=== PATIENT | female | born 1940 | race Hispanic/Latino ===

== ENCOUNTER 2021-12-30 04:03 | Observation (INO) | payer OTHER ==
[2021-12-30] VITALS (11 sets, daily range): BP systolic 118–195; BP diastolic 50–118
[~2021-12-30] VITALS: Ht 149.9 cm; Wt 61.7 kg
[2021-12-30 04:25] LABS: BASOPHILS % (AUTO) 0.1 % (0.0-5.0); EOSINOPHILS % (AUTO) 3.6 % (0.0-8.0); HEMATOCRIT 22.4 % (36-48); LYMPHOCYTES % (AUTO) 11.4 % (21.0-51.0); MEAN CORPUSCULAR HEMOGLOBIN 26.8 pg (27.0-33.0); MEAN CORPUSCULAR HGB CONC 32.1 g/dL (32.0-36.0); MEAN CORPUSCULAR VOLUME 83.3 fL (79-99); MONOCYTES % (AUTO) 4.8 % (3.0-13.0); NEUTROPHILS % (AUTO) 77.3 % (40.0-77.0); NUCLEATED RED BLOOD CELLS 0.2 % (0.0-0.19); PLATELET COUNT (AUTO) 255 K/uL (130-400); RED BLOOD CELL COUNT(AUTO) 2.69 MIL/uL (4.00-5.50); RED CELL DISTRIBUTION WIDTH 17.8 % (11.0-15.5); WHITE BLOOD COUNT (AUTO) 16.6 K/uL (4.8-10.8)
[2021-12-30] MEDS ORDERED: 0.9%NACL 1000ML 1,000 ML IV SCH ×3 (04:30→09:00)
[2021-12-30] MEDS ORDERED: ACETAMINOPHEN 500 MG TABLET PO ONE (04:30)
[2021-12-30 04:44] LABS: CARBON DIOXIDE 20 mmol/L (21-32); CHLORIDE 99 mmol/L (101-111); CREATININE 1.9 mg/dL (0.5-1.5); GLOMERULAR FILTR. RATE CALC 27 mL/min (>60); GLUCOSE,RANDOM 210 mg/dL (70-105); POTASSIUM 4.4 mmol/L (3.5-5.1); SODIUM SERUM 130 mmol/L (136-145); UREA NITROGEN, BLOOD 22 mg/dL (7-18)
[2021-12-30 04:51] LABS: ALANINE AMINOTRANSFERASE 9 U/L (12-78); ALBUMIN 1.9 g/dL (3.5-5.0); ASPARTATE AMINOTRANSFERASE 14 U/L (10-37); TOTAL PROTEIN, SERUM 11.9 g/dL (6.0-8.3)
[2021-12-30] MEDS ORDERED: MEROPENEM 1 GM VIAL IVP SCH (05:00)
[2021-12-30 05:53] LABS: APPEARANCE,URINE CLEAR (CLEAR); BILIRUBIN,URINE NEGATIVE (NEGATIVE); COLOR,URINE YELLOW (YELLOW); GLUCOSE, URINE (UA) NEGATIVE (NEGATIVE); KETONES,URINE NEGATIVE (NEGATIVE); LEUKOCYTE ESTERASE ,URINE NEGATIVE (NEGATIVE); NITRATE,URINE NEGATIVE (NEGATIVE); OCCULT BLOOD,URINE TRACE-INTACT (NEGATIVE); PROTEIN,URINE 30 mg/dL (NEGATIVE); UROBILINOGEN,URINE 0.2 mg/dL (0.2-1.0)
[2021-12-30 06:12] LABS: RBC,URINE 0-1 /HPF (0-1)
[2021-12-30 06:13] LABS: BACTERIA,URINE None Seen /HPF (None Seen); SQUAMOUS EPITHELIAL CELL,UR Few /HPF (0-2); WBC,URINE None Seen /HPF (0-1)
[2021-12-30 06:14] LABS: TRANSITIONAL EPI CELLS,URINE Few /HPF (None Seen)
[2021-12-30] MEDS ORDERED: METF-444 PO (07:27)
[2021-12-30] MEDS ORDERED: LISI40TA9 PO (07:27)
[2021-12-30] MEDS ORDERED: FERS325 PO (07:27)
[2021-12-30] MEDS ORDERED: NITR100C PO (07:27)
[2021-12-30] MEDS ORDERED: GLUCAGON 1MG KIT 1 MG ML IM PRN (08:00)
[2021-12-30] MEDS ORDERED: DEXTROSE 50%-WATER 50 ML DISP.SYRIN IV PRN (08:00)
[2021-12-30] MEDS: LISINOPRIL 40 MG TABLET PO SCH (08:07)
[2021-12-30] MEDS: FERROUS SULFATE 325 MG TABLET.DR PO SCH (08:08)
[2021-12-30] MEDS: ENOXAPARIN SODIUM 30 MG/0.3 ML SQ SCH (09:00)
[2021-12-30 09:10] LABS: MEAN CORPUSCULAR HEMOGLOBIN 26.1 pg (27.0-33.0); MEAN CORPUSCULAR HGB CONC 30.8 g/dL (32.0-36.0); MEAN CORPUSCULAR VOLUME 84.5 fL (79-99); PLATELET COUNT (AUTO) 197 K/uL (130-400); RED BLOOD CELL COUNT(AUTO) 2.38 MIL/uL (4.00-5.50); RED CELL DISTRIBUTION WIDTH 17.7 % (11.0-15.5)
[2021-12-30 09:44] LABS: HEMOGLOBIN A1C 8.8 % (4.0-6.0)
[2021-12-30] MEDS: FAMOTIDINE 20MG TAB PO SCH ×2 (09:58→20:30)
[2021-12-30 10:02] LABS: HEMATOCRIT 20.1 % (36-48)
[2021-12-30] MEDS: INSULIN HUMULIN R 100 UNIT/ML 3ML SQ SCH ×3 (11:30→21:00)
[2021-12-30] MEDS: MEROPENEM 1 GM VIAL IVP SCH ×2 (12:57→20:30)
[2021-12-30] MEDS: HYDRALAZINE 20MG/ML VIAL IV PRN ×2 (12:57→16:20)
[2021-12-30] MEDS ORDERED: ACETAMINOPHEN 325 MG TAB PO PRN (16:41)
[2021-12-30] MEDS ORDERED: ACETAMINOPHEN 325 MG TAB ONE (16:43)
[2021-12-30 16:50] LABS: HEMATOCRIT 26.8 % (36-48)
[2021-12-30] MEDS: NIFEDIPINE 10 MG CAP PO SCH ×2 (17:55→21:51)
[2021-12-31 03:07] VITALS: BP 122/58
[2021-12-31 03:50] LABS: HEMATOCRIT 24.6 % (36-48); MEAN CORPUSCULAR HEMOGLOBIN 26.1 pg (27.0-33.0); MEAN CORPUSCULAR HGB CONC 31.7 g/dL (32.0-36.0); MEAN CORPUSCULAR VOLUME 82.3 fL (79-99); NUCLEATED RED BLOOD CELLS 0.2 % (0.0-0.19); RED BLOOD CELL COUNT(AUTO) 2.99 MIL/uL (4.00-5.50); RED CELL DISTRIBUTION WIDTH 18.1 % (11.0-15.5); WHITE BLOOD COUNT (AUTO) 12.5 K/uL (4.8-10.8)
[2021-12-31 04:15] LABS: ALANINE AMINOTRANSFERASE 9 U/L (12-78); ALBUMIN 1.5 g/dL (3.5-5.0); ASPARTATE AMINOTRANSFERASE 9 U/L (10-37); CARBON DIOXIDE 21 mmol/L (21-32); CHLORIDE 105 mmol/L (101-111); CREATININE 1.9 mg/dL (0.5-1.5); GLOMERULAR FILTR. RATE CALC 27 mL/min (>60); GLUCOSE,RANDOM 165 mg/dL (70-105); POTASSIUM 3.9 mmol/L (3.5-5.1); SODIUM SERUM 134 mmol/L (136-145); UREA NITROGEN, BLOOD 24 mg/dL (7-18)
[2021-12-31] MEDS: MEROPENEM 1 GM VIAL IVP SCH ×2 (04:56→11:42)
[2021-12-31] MEDS: INSULIN HUMULIN R 100 UNIT/ML 3ML SQ SCH ×2 (06:33→11:43)
[2021-12-31 08:00] VITALS: BP 144/57
[2021-12-31] MEDS: NIFEDIPINE 10 MG CAP PO SCH ×2 (08:26→13:52)
[2021-12-31] MEDS: LISINOPRIL 40 MG TABLET PO SCH (08:26)
[2021-12-31] MEDS: FERROUS SULFATE 325 MG TABLET.DR PO SCH (08:26)
[2021-12-31] MEDS: FAMOTIDINE 20MG TAB PO SCH (08:26)
[2021-12-31] MEDS: ENOXAPARIN SODIUM 30 MG/0.3 ML SQ SCH (08:32)
[2021-12-31 12:00] VITALS: BP 144/59
[2021-12-31] MEDS ORDERED: NIFE90TA45 PO (13:29)
[2021-12-31] MEDS ORDERED: LEVO500T90 PO (13:29)
[2021-12-31 14:08] LABS: HEMATOCRIT 24.7 % (36-48)
== END 2021-12-31 16:20 | disposition home or self-care (01) ==
LOC: EDH 04:03 → INTOOBSV 04:04 → EDHIP 04:04 → 2DH 10:51
PROVIDERS: ADMIT Hospitalist; ATTEND Hospitalist
DX: A41.9 Sepsis, unspecified organism (principal); Z20.822 Contact with and (suspected) exposure to COVID-19; I16.0 Hypertensive urgency; E11.65 Type 2 diabetes mellitus with hyperglycemia; E87.1 Hypo-osmolality and hyponatremia; N17.9 Acute kidney failure, unspecified; D64.9 Anemia, unspecified; Z79.899 Other long term (current) drug therapy
CPT/HCPCS: 99285; 36430; 96374; 71250; 71045; 96361; 87635; 96375; 96376 ×2; 83036; 84484; 80053 ×2; 85025; 86850; 86900; 86901; 86923 ×2; 87040 ×2; 87804 ×2; 82948 ×5; 83605 ×2; 81001; 36415 ×2; 93005; 96372 ×2; 85027 ×2; 85014 ×2; 85018 ×2; 82270; P9016; C9803; J0360; J2185 ×5; J1815; G0378; J7030; J1650

== ENCOUNTER 2022-07-18 16:54 | Inpatient (IN) | payer MEDICAID, OTHER ==
[~2022-07-18] VITALS: Ht 152.4 cm; Wt 61.0 kg
[~2022-07-18 16:54] MED LIST: FERS325 PO; LEVO-70 PO; LISI40TA9 PO; METF-444 PO; NIFE90TA45 PO
[2022-07-18] MEDS ORDERED: ACETAMINOPHEN 500 MG TABLET ONE (17:53)
[2022-07-18] MEDS ORDERED: ACETAMINOPHEN 500 MG TABLET PO ONE (18:00)
[2022-07-18] MEDS ORDERED: 0.9%NACL 1000ML 1,000 ML IV ONE (18:00)
[2022-07-18] MEDS ORDERED: KETOROLAC 15MG/ML VIAL (15MG/ML) IV ONE (18:00)
[2022-07-18 18:02] LABS: BASOPHILS % (AUTO) 0.2 % (0.0-5.0); EOSINOPHILS % (AUTO) 1.2 % (0.0-8.0); HEMATOCRIT 22.2 % (36-48); LYMPHOCYTES % (AUTO) 8.3 % (21.0-51.0); MEAN CORPUSCULAR HEMOGLOBIN 26.5 pg (27.0-33.0); MEAN CORPUSCULAR HGB CONC 30.6 g/dL (32.0-36.0); MEAN CORPUSCULAR VOLUME 86.4 fL (79-99); MONOCYTES % (AUTO) 4.1 % (3.0-13.0); NEUTROPHILS % (AUTO) 84.7 % (40.0-77.0); NUCLEATED RED BLOOD CELLS 0.2 % (0.0-0.19); PLATELET COUNT (AUTO) 173 K/uL (130-400); RED BLOOD CELL COUNT(AUTO) 2.57 MIL/uL (4.00-5.50); RED CELL DISTRIBUTION WIDTH 18.4 % (11.0-15.5); WHITE BLOOD COUNT (AUTO) 12.3 K/uL (4.8-10.8)
[2022-07-18 18:15] LABS: APPEARANCE,URINE CLEAR (CLEAR); BILIRUBIN,URINE NEGATIVE (NEGATIVE); COLOR,URINE COLORLESS (YELLOW); GLUCOSE, URINE (UA) NEGATIVE (NEGATIVE); KETONES,URINE NEGATIVE (NEGATIVE); LEUKOCYTE ESTERASE ,URINE NEGATIVE Leu/uL (NEGATIVE); NITRATE,URINE NEGATIVE (NEGATIVE); PROTEIN,URINE 50 mg/dL (NEGATIVE); UROBILINOGEN,URINE 0.2 mg/dL (0.2-1.0)
[2022-07-18 18:18] LABS: CREATININE 1.9 mg/dL (0.5-1.5); POTASSIUM 4.2 mmol/L (3.5-5.1)
[2022-07-18 18:19] LABS: BACTERIA,URINE RARE /HPF (None Seen); MUCUS,URINE RARE LPF (None Seen); SQUAMOUS EPITHELIAL CELL,UR RARE /HPF (0-2); WBC,URINE 0-1 /HPF (0-1)
[2022-07-18 18:23] LABS: ALBUMIN 2.4 g/dL (3.5-5.0); TOTAL PROTEIN, SERUM 11.4 g/dL (6.0-8.3)
[2022-07-18] MEDS ORDERED: ZOSYN 3.375GM +NS 50ML IVPB ONE (19:00)
[2022-07-18] MEDS ORDERED: GLUCAGON 1MG KIT 1 MG ML IM PRN (20:00)
[2022-07-18] MEDS ORDERED: DEXTROSE 50%-WATER 50 ML DISP.SYRIN IV PRN (20:00)
[2022-07-18] MEDS ORDERED: ONDANSETRON 4MG INJ IVP PRN (20:00)
[2022-07-18] MEDS ORDERED: ACETAMINOPHEN 325 MG TAB PO PRN (20:00)
[2022-07-18 20:05] LABS: RETICULOCYTE % (AUTO) 2.71 % (0.42-2.23)
[2022-07-18 20:14] LABS: HEMOGLOBIN A1C 6.3 % (4.0-6.0)
[2022-07-18 20:42] LABS: % IRON SATURATION 7.8 % (22-44)
[2022-07-18] MEDS: 0.9%NACL 1000ML 1,000 ML IV SCH (20:57)
[2022-07-18] MEDS: INSULIN HUMULIN R 100 UNIT/ML 3ML SQ SCH (21:00)
[2022-07-18 21:15] VITALS: BP 150/73
[2022-07-18] MEDS ORDERED: GABA-529 PO (23:28)
[2022-07-18] MEDS ORDERED: METF-444 PO (23:28)
[2022-07-18] MEDS ORDERED: NITR100C PO (23:28)
[2022-07-19] VITALS (7 sets, daily range): BP systolic 120–169; BP diastolic 46–88
[2022-07-19] MEDS: ZOSYN 3.375GM +NS 50ML IVPB SCH ×2 (03:32→04:57)
[2022-07-19] MEDS: INSULIN HUMULIN R 100 UNIT/ML 3ML SQ SCH ×4 (05:17→19:49)
[2022-07-19 07:06] LABS: BASOPHILS % (AUTO) 0.3 % (0.0-5.0); EOSINOPHILS % (AUTO) 3.3 % (0.0-8.0); HEMATOCRIT 22.9 % (36-48); LYMPHOCYTES % (AUTO) 9.1 % (21.0-51.0); MEAN CORPUSCULAR HEMOGLOBIN 27.4 pg (27.0-33.0); MEAN CORPUSCULAR HGB CONC 31.9 g/dL (32.0-36.0); MEAN CORPUSCULAR VOLUME 86.1 fL (79-99); MONOCYTES % (AUTO) 4.9 % (3.0-13.0); NEUTROPHILS % (AUTO) 81.6 % (40.0-77.0); NUCLEATED RED BLOOD CELLS 0.2 % (0.0-0.19); PLATELET COUNT (AUTO) 166 K/uL (130-400); RED BLOOD CELL COUNT(AUTO) 2.66 MIL/uL (4.00-5.50); RED CELL DISTRIBUTION WIDTH 17.5 % (11.0-15.5); WHITE BLOOD COUNT (AUTO) 11.9 K/uL (4.8-10.8)
[2022-07-19 07:19] LABS: CREATININE 1.9 mg/dL (0.5-1.5)
[2022-07-19] MEDS: 0.9%NACL 1000ML 1,000 ML IV SCH (07:27)
[2022-07-19 07:58] LABS: % IRON SATURATION 15.8 % (22-44)
[2022-07-19] MEDS ORDERED: PHARMACY COMMUNICATION MISC SCH (08:30)
[2022-07-19] MEDS ORDERED: CYANOCOBALAMIN (VITAMIN B-12) 100 MCG TABLET PO SCH (09:00)
[2022-07-19] MEDS: PANTOPRAZOLE 40 MG/VIAL IVP SCH (10:34)
[2022-07-19] MEDS: ZOSYN 3.375GM+NS 50ML 50 ML IVPB SCH ×2 (10:34→20:45)
[2022-07-19] MEDS ORDERED: COMPOUND IV MISC 1 EACH IVSOLN MISC PRN (12:30)
[2022-07-19] MEDS: IRON SUCROSE COMPLEX 300 MG in 0.9% NACL 250ML 250 ML IV SCH (16:48)
[2022-07-20] VITALS (7 sets, daily range): BP systolic 135–191; BP diastolic 49–78
[2022-07-20 05:48] LABS: BASOPHILS % (AUTO) 0.3 % (0.0-5.0); EOSINOPHILS % (AUTO) 7.8 % (0.0-8.0); HEMATOCRIT 23.8 % (36-48); LYMPHOCYTES % (AUTO) 11.7 % (21.0-51.0); MEAN CORPUSCULAR HEMOGLOBIN 27.9 pg (27.0-33.0); MEAN CORPUSCULAR HGB CONC 31.5 g/dL (32.0-36.0); MEAN CORPUSCULAR VOLUME 88.5 fL (79-99); MONOCYTES % (AUTO) 6.4 % (3.0-13.0); NEUTROPHILS % (AUTO) 72.9 % (40.0-77.0); NUCLEATED RED BLOOD CELLS 0.2 % (0.0-0.19); PLATELET COUNT (AUTO) 156 K/uL (130-400); RED BLOOD CELL COUNT(AUTO) 2.69 MIL/uL (4.00-5.50); RED CELL DISTRIBUTION WIDTH 18.2 % (11.0-15.5); WHITE BLOOD COUNT (AUTO) 9.2 K/uL (4.8-10.8)
[2022-07-20] MEDS: INSULIN HUMULIN R 100 UNIT/ML 3ML SQ SCH ×3 (05:57→19:46)
[2022-07-20 06:03] LABS: INR 1.16 (0.85-1.15); PROTHROMBIN TIME 12.5 SEC (9.6-11.6)
[2022-07-20 06:05] LABS: PARTIAL THROMBOPLASTIN TIME 30.5 SEC (26.3-35.5)
[2022-07-20 06:33] LABS: ALBUMIN 1.8 g/dL (3.5-5.0); BILIRUBIN,DIRECT 0.1 mg/dL (0.0-0.3); CREATININE 1.8 mg/dL (0.5-1.5); CRP QUANTITATIVE 165.9 mg/L (0.00-9.0); POTASSIUM 3.9 mmol/L (3.5-5.1); TOTAL PROTEIN, SERUM 9.7 g/dL (6.0-8.3)
[2022-07-20] MEDS ORDERED: CYANOCOBALAMIN (VITAMIN B-12) 1000 MCG/ML 1ML VIAL IM SCH (09:00)
[2022-07-20] MEDS: ZOSYN 3.375GM+NS 50ML 50 ML IVPB SCH ×2 (10:38→19:48)
[2022-07-20] MEDS: PANTOPRAZOLE 40 MG/VIAL IVP SCH (10:38)
[2022-07-20] MEDS: IRON SUCROSE COMPLEX 300 MG in 0.9% NACL 250ML 250 ML IV SCH (12:44)
[2022-07-20] MEDS: NIFEDIPINE ER 30 MG TAB PO SCH (19:48)
[2022-07-21] VITALS (21 sets, daily range): BP systolic 126–197; BP diastolic 40–102
[2022-07-21 05:40] LABS: BASOPHILS % (AUTO) 0.6 % (0.0-5.0); EOSINOPHILS % (AUTO) 10.7 % (0.0-8.0); HEMATOCRIT 24.3 % (36-48); MEAN CORPUSCULAR HEMOGLOBIN 27.2 pg (27.0-33.0); MEAN CORPUSCULAR HGB CONC 31.3 g/dL (32.0-36.0); MEAN CORPUSCULAR VOLUME 87.1 fL (79-99); MONOCYTES % (AUTO) 6.6 % (3.0-13.0); NEUTROPHILS % (AUTO) 60.1 % (40.0-77.0); PLATELET COUNT (AUTO) 166 K/uL (130-400); RED BLOOD CELL COUNT(AUTO) 2.79 MIL/uL (4.00-5.50); RED CELL DISTRIBUTION WIDTH 18.1 % (11.0-15.5); WHITE BLOOD COUNT (AUTO) 6.9 K/uL (4.8-10.8)
[2022-07-21 05:52] LABS: CREATININE 1.7 mg/dL (0.5-1.5); POTASSIUM 3.9 mmol/L (3.5-5.1)
[2022-07-21] MEDS: INSULIN HUMULIN R 100 UNIT/ML 3ML SQ SCH ×4 (05:57→21:00)
[2022-07-21 07:41] LABS: ALBUMIN 1.9 g/dL (3.5-5.0); CRP QUANTITATIVE 103.7 mg/L (0.00-9.0); TOTAL PROTEIN, SERUM 10.2 g/dL (6.0-8.3)
[2022-07-21] MEDS: PANTOPRAZOLE 40 MG/VIAL IVP SCH (10:15)
[2022-07-21] MEDS: ZOSYN 3.375GM+NS 50ML 50 ML IVPB SCH ×2 (10:15→21:09)
[2022-07-21] MEDS ORDERED: 0.9%NACL 1000ML 1,000 ML IV ONE (12:09)
[2022-07-21] MEDS ORDERED: PROPOFOL 10 MG/ML 20ML VIAL IV ONE (13:03)
[2022-07-21] MEDS: IRON SUCROSE COMPLEX 300 MG in 0.9% NACL 250ML 250 ML IV SCH (17:43)
[2022-07-21] MEDS ORDERED: LACTULOSE 20 GM/30 ML UDCUP PO ONE (18:00)
[2022-07-21] MEDS ORDERED: PEG 3350/NA SULF,BICARB,CL/KCL 4000 ML SOLN PO SCH (18:00)
[2022-07-21] MEDS: NIFEDIPINE ER 30 MG TAB PO SCH (18:09)
[2022-07-21] MEDS: PANTOPRAZOLE 40 MG TAB DR PO SCH (21:09)
[2022-07-22] VITALS (14 sets, daily range): BP systolic 113–166; BP diastolic 47–70
[2022-07-22] MEDS: INSULIN HUMULIN R 100 UNIT/ML 3ML SQ SCH ×2 (06:06→11:30)
[2022-07-22] MEDS: PANTOPRAZOLE 40 MG TAB DR PO SCH (09:00)
[2022-07-22] MEDS: ZOSYN 3.375GM+NS 50ML 50 ML IVPB SCH (10:00)
[2022-07-22] MEDS ORDERED: PROPOFOL 10 MG/ML 20ML VIAL IV ONE (12:33)
[2022-07-22] MEDS ORDERED: LIDOCAINE PF 100MG/5ML (2%) SYRINGE 5ML ONE (12:33)
[2022-07-22] MEDS ORDERED: ATROPINE 1MG SYG IVP ONE (12:46)
[2022-07-22] MEDS ORDERED: GLYCOPYRROLATE 1 MG/5 ML SYRINGE ONE (12:46)
[2022-07-22] MEDS ORDERED: 0.9%NACL 1000ML 1,000 ML IV ONE (13:04)
[2022-07-22] MEDS ORDERED: PANT40TA PO (13:59)
[2022-07-22] MEDS ORDERED: CYAN1TAB44 PO (14:04)
== END 2022-07-22 17:15 | disposition home or self-care (01) | DRG 871 ==
LOC: EDH 16:54 → EDHIP 16:55 → 3AH 21:05
PROVIDERS: ADMIT Hospitalist; ATTEND Hospitalist
PROC: 0DB98ZX Excision of Duodenum, Via Natural or Artificial Opening Endoscopic, Diagnostic (ICD-10-PCS; principal; 2022-07-21)
PROC: 0DB78ZX Excision of Stomach, Pylorus, Via Natural or Artificial Opening Endoscopic, Diagnostic (ICD-10-PCS; 2022-07-21)
PROC: 0DB58ZX Excision of Esophagus, Via Natural or Artificial Opening Endoscopic, Diagnostic (ICD-10-PCS; 2022-07-21)
PROC: 0DBH8ZZ Excision of Cecum, Via Natural or Artificial Opening Endoscopic (ICD-10-PCS; 2022-07-22)
PROC: 0DBH8ZX Excision of Cecum, Via Natural or Artificial Opening Endoscopic, Diagnostic (ICD-10-PCS; 2022-07-22)
DX: A41.50 Gram-negative sepsis, unspecified (principal); G93.41 Metabolic encephalopathy; N39.0 Urinary tract infection, site not specified; E44.0 Moderate protein-calorie malnutrition; Z20.822 Contact with and (suspected) exposure to COVID-19; C18.9 Malignant neoplasm of colon, unspecified; E87.1 Hypo-osmolality and hyponatremia; N17.9 Acute kidney failure, unspecified; K29.00 Acute gastritis without bleeding; K21.00 Gastro-esophageal reflux disease with esophagitis, without bleeding; K64.8 Other hemorrhoids; D50.9 Iron deficiency anemia, unspecified; E11.22 Type 2 diabetes mellitus with diabetic chronic kidney disease; N18.9 Chronic kidney disease, unspecified; E53.8 Deficiency of other specified B group vitamins; I12.9 Hypertensive chronic kidney disease with stage 1 through stage 4 chronic kidney disease, or unspecified chronic kidney disease; R65.20 Severe sepsis without septic shock; Z82.49 Family history of ischemic heart disease and other diseases of the circulatory system; Z83.3 Family history of diabetes mellitus; Z68.26 Body mass index [BMI] 26.0-26.9, adult
CPT/HCPCS: 36415; 43239; 45380; 45385; 71045; 76770; 80048; 80053; 80076; 81001; 82040; 82270; 82330; 82607; 82728; 82746; 82948; 83036; 83540; 83550; 83605; 83735; 84145; 84155; 85025; 85610; 85651; 85730; 86140; 86334; 86340; 86677; 86850; 86900; 86901; 86923; 87040; 87088; 87635; 87804; C9113; C9803; G0378; J0461; J1756; J1885; J2001; J2543; J2704; J3420; J3490; J7030; J7050; P9016

== ENCOUNTER 2023-08-07 07:04 | Inpatient (IN) | payer MEDICAID, OTHER ==
[~2023-08-07] VITALS: Ht 149.9 cm; Wt 58.5 kg
[2023-08-07] VITALS (8 sets, daily range): BP systolic 154–163; BP diastolic 71–72; PULSE 72–93; RESP 18–20; TEMP 98.2; O2SAT 95–97
[~2023-08-07 07:04] MED LIST changes: +CYAN1TAB44 PO; +GABA-529 PO; -LEVO-70 PO; -LISI40TA9 PO; -NIFE90TA45 PO; +NIFE90TA72 PO; +PANT40TA PO
[2023-08-07 07:42] LABS: RAPID GROUP A STREP negative (NEGATIVE)
[2023-08-07 07:51] LABS: INFLUENZA TYPE A Negative For Type A (NEGATIVE); INFLUENZA TYPE B Negative For Type B (NEGATIVE)
[2023-08-07 07:56] LABS: SARS-CoV-2, RNA, NAAT POSITIVE SARS CoV-2 (NEGATIVE)
[2023-08-07 07:58] LABS: BASOPHILS # (AUTO) 0.04 K/uL (0.00-0.20); BASOPHILS % (AUTO) 0.5 % (0.0-5.0); EOSINOPHILS # (AUTO) 0.04 K/uL (0.00-0.70); EOSINOPHILS % (AUTO) 0.5 % (0.0-8.0); IMMATURE GRANULOCYTE ABSOLUTE 0.09 K/uL (0-1); LYMPHOCYTES # (AUTO) 0.9 K/uL (1.0-4.8); LYMPHOCYTES % (AUTO) 10.3 % (21.0-51.0); MEAN CORPUSCULAR HEMOGLOBIN 27.6 pg (27.0-33.0); MEAN CORPUSCULAR HGB CONC 31.2 g/dL (32.0-36.0); MEAN CORPUSCULAR VOLUME 88.4 fL (79-99); MONOCYTES # (AUTO) 0.6 K/uL (0.1-1.0); MONOCYTES % (AUTO) 6.7 % (3.0-13.0); NEUTROPHILS # (AUTO) 7.2 K/uL (1.8-7.7); PLATELET COUNT (AUTO) 162 K/uL (130-400); RED BLOOD CELL COUNT(AUTO) 2.32 MIL/uL (4.00-5.50); RED CELL DISTRIBUTION WIDTH 17.7 % (11.0-15.5); WHITE BLOOD COUNT (AUTO) 8.8 K/uL (4.8-10.8)
[2023-08-07 08:02] LABS: APPEARANCE,URINE CLEAR (CLEAR); BILIRUBIN,URINE NEGATIVE (NEGATIVE); COLOR,URINE COLORLESS (YELLOW); GLUCOSE, URINE (UA) NEGATIVE (NEGATIVE); KETONES,URINE NEGATIVE (NEGATIVE); LEUKOCYTE ESTERASE ,URINE NEGATIVE Leu/uL (NEGATIVE); NITRATE,URINE NEGATIVE (NEGATIVE); PH,URINE 5.5 (5.0-8.0); PROTEIN,URINE 50 mg/dL (NEGATIVE); UROBILINOGEN,URINE 0.2 mg/dL (0.2-1.0)
[2023-08-07 08:05] LABS: CREATININE 2.6 mg/dL (0.5-1.5); POTASSIUM 4.7 mmol/L (3.5-5.1)
[2023-08-07 08:07] LABS: INR 1.06 (0.85-1.15); PROTHROMBIN TIME 12.3 SEC (9.6-11.6)
[2023-08-07 08:08] LABS: PARTIAL THROMBOPLASTIN TIME 24.6 SEC (26.3-35.5)
[2023-08-07 08:10] LABS: ALBUMIN 1.8 g/dL (3.5-5.0); BILIRUBIN,TOTAL 0.2 mg/dL (0.2-1.0); TOTAL PROTEIN, SERUM 10.9 g/dL (6.0-8.3)
[2023-08-07 08:12] LABS: ADD UA MICROSCOPIC YES
[2023-08-07 08:14] LABS: BACTERIA,URINE RARE /HPF (None Seen); MUCUS,URINE RARE LPF (None Seen); SQUAMOUS EPITHELIAL CELL,UR RARE /HPF (0-2)
[2023-08-07 08:24] LABS: HEMATOCRIT 20.5 % (36-48)
[2023-08-07] MEDS: ALBUTEROL 0.083% 2.5 MG/3 ML INH IH ONE (08:44)
[2023-08-07] MEDS: 0.9%NACL 1000ML 1,365 ML IV ONE (09:17)
[2023-08-07] MEDS: METOCLOPRAMIDE 10 MG/2 ML VIAL IVP ONE (09:17)
[2023-08-07] MEDS: DEXAMETHASONE SOD PHOSPHATE 4 MG/ML 1ML VIAL IV ONE (09:20)
[2023-08-07] MEDS: FAMOTIDINE 20MG VIAL IV ONE (09:23)
[2023-08-07] MEDS: KETOROLAC 30MG VIAL (30MG/ML) IVP ONE (09:24)
[2023-08-07] MEDS: ENOXAPARIN SODIUM 40 MG/0.4 ML SYRINGE SQ ONE (09:25)
[2023-08-07] MEDS: CEFTRIAXONE 2GM VIAL IVPB ONE (09:26)
[2023-08-07] MEDS: AZITHROMYCIN 500MG+NS 250ML 250 ML IVPB SCH (10:07)
[2023-08-07] MEDS ORDERED: 0.9%NACL 1000ML 1,000 ML IV SCH (12:00)
[2023-08-07] MEDS ORDERED: ACETAMINOPHEN 325 MG TAB PO PRN (12:00)
[2023-08-07] MEDS ORDERED: PANTOPRAZOLE 40 MG/VIAL IVP SCH (12:00)
[2023-08-07] MEDS ORDERED: ALBUTEROL 0.083% 2.5 MG/3 ML INH IH PRN (12:00)
[2023-08-07] MEDS ORDERED: ONDANSETRON 4MG INJ IVP PRN (12:00)
[2023-08-07 12:05] LABS: RETICULOCYTE % (AUTO) 1.3 % (0.42-2.23)
[2023-08-07 12:11] LABS: HEMOGLOBIN A1C 6.2 % (4.0-6.0)
[2023-08-07 12:26] LABS: MAGNESIUM 2.1 mg/dL (1.80-2.40); PHOSPHORUS 3.4 mg/dL (2.5-4.9); THYROID STIMULATING HORMONE 8.15 uIU/mL (0.36-3.74)
[2023-08-07] MEDS: ACETAMINOPHEN 325 MG TAB PO ONE (12:38)
[2023-08-07 12:40] LABS: % IRON SATURATION 8.6 % (22-44)
[2023-08-07 13:01] LABS: ABG BASE EXCESS -7.2 mmol/L (-2.0-3.0); ABG HCO3 15.9 mmol/L (21.0-28.0); ABG OXYGEN SATURATION 94.4 % (95.0-99.0); ABG PCO2 27 mmHg (32-45); PO2, ARTERIAL BG 70.8 mmHg (83.0-108.0); VENT MODE, BG RA (ROOM AIR)
[2023-08-07 13:14] LABS: FERRITIN 146 ng/mL (15-150); LACTATE DEHYDROGENASE 135 U/L (81-234)
[2023-08-07 15:12] LABS: URIC ACID 6.9 mg/dL (2.6-7.2)
[2023-08-07 17:16] LABS: HEMATOCRIT 22.3 % (36-48)
[2023-08-07] MEDS: BUDESONIDE 0.5 MG/2 ML INH IH SCH (18:39)
[2023-08-07] MEDS: PANTOPRAZOLE 40 MG/VIAL IVP SCH (20:17)
[2023-08-07 23:14] LABS: HEMATOCRIT 20.9 % (36-48)
[2023-08-08] VITALS (15 sets, daily range): BP systolic 121–173; BP diastolic 46–74; PULSE 56–73; RESP 16–20; O2SAT 100
[2023-08-08 02:24] LABS: PROTEIN,URINE RANDOM 89.1 mg/dL (0-11.9)
[2023-08-08] MEDS: HYDRALAZINE 20MG/ML VIAL IV PRN (03:33)
[2023-08-08] MEDS: HYDRALAZINE 20MG/ML VIAL ONE (03:41)
[2023-08-08 04:21] LABS: BASOPHILS # (AUTO) 0.02 K/uL (0.00-0.20); BASOPHILS % (AUTO) 0.3 % (0.0-5.0); HEMATOCRIT 25.1 % (36-48); IMMATURE GRANULOCYTE ABSOLUTE 0.08 K/uL (0-1); LYMPHOCYTES # (AUTO) 0.8 K/uL (1.0-4.8); MEAN CORPUSCULAR HEMOGLOBIN 27.8 pg (27.0-33.0); MEAN CORPUSCULAR HGB CONC 32.7 g/dL (32.0-36.0); MEAN CORPUSCULAR VOLUME 85.1 fL (79-99); MONOCYTES # (AUTO) 0.7 K/uL (0.1-1.0); MONOCYTES % (AUTO) 9.8 % (3.0-13.0); NEUTROPHILS # (AUTO) 5.9 K/uL (1.8-7.7); NEUTROPHILS % (AUTO) 77.8 % (40.0-77.0); NUCLEATED RED BLOOD CELLS 0.3 % (0.0-0.19); PLATELET COUNT (AUTO) 149 K/uL (130-400); RED BLOOD CELL COUNT(AUTO) 2.95 MIL/uL (4.00-5.50); RED CELL DISTRIBUTION WIDTH 15.9 % (11.0-15.5); WHITE BLOOD COUNT (AUTO) 7.6 K/uL (4.8-10.8)
[2023-08-08 04:35] LABS: CREATININE 1.9 mg/dL (0.5-1.5); PHOSPHORUS 4.5 mg/dL (2.5-4.9); POTASSIUM 4.4 mmol/L (3.5-5.1)
[2023-08-08] MEDS: CYANOCOBALAMIN PO SCH (09:00)
[2023-08-08] MEDS: FOLIC ACID PO SCH (09:00)
[2023-08-08] MEDS: CEFTRIAXONE 1G VIAL IVPB SCH (10:21)
[2023-08-08] MEDS: GABAPENTIN 100 MG CAPSULE PO SCH (10:21)
[2023-08-08] MEDS: FERROUS SULFATE 325 MG TABLET.DR PO SCH (10:22)
[2023-08-08] MEDS: NIFEDIPINE ER 30 MG TAB PO SCH (10:22)
[2023-08-08] MEDS: IRON SUCROSE COMPLEX 300 MG in 0.9% NACL 250ML 250 ML IV ONE (20:34)
[2023-08-09] VITALS (10 sets, daily range): BP systolic 135–160; BP diastolic 50–72; PULSE 61–78; RESP 16–20; O2SAT 95–98
[2023-08-09 05:26] LABS: BASOPHILS # (AUTO) 0.02 K/uL (0.00-0.20); BASOPHILS % (AUTO) 0.4 % (0.0-5.0); EOSINOPHILS # (AUTO) 0.07 K/uL (0.00-0.70); EOSINOPHILS % (AUTO) 1.3 % (0.0-8.0); HEMATOCRIT 24.5 % (36-48); IMMATURE GRANULOCYTE ABSOLUTE 0.07 K/uL (0-1); LYMPHOCYTES % (AUTO) 18.7 % (21.0-51.0); MEAN CORPUSCULAR HEMOGLOBIN 28.5 pg (27.0-33.0); MEAN CORPUSCULAR HGB CONC 33.5 g/dL (32.0-36.0); MEAN CORPUSCULAR VOLUME 85.1 fL (79-99); MONOCYTES # (AUTO) 0.5 K/uL (0.1-1.0); MONOCYTES % (AUTO) 8.6 % (3.0-13.0); NEUTROPHILS # (AUTO) 3.6 K/uL (1.8-7.7); NEUTROPHILS % (AUTO) 69.7 % (40.0-77.0); PLATELET COUNT (AUTO) 171 K/uL (130-400); RED BLOOD CELL COUNT(AUTO) 2.88 MIL/uL (4.00-5.50); RED CELL DISTRIBUTION WIDTH 16.9 % (11.0-15.5); WHITE BLOOD COUNT (AUTO) 5.2 K/uL (4.8-10.8)
[2023-08-09 05:58] LABS: ALBUMIN 1.5 g/dL (3.5-5.0); BILIRUBIN,TOTAL 0.1 mg/dL (0.2-1.0); CREATININE 1.9 mg/dL (0.5-1.5); MAGNESIUM 2.3 mg/dL (1.80-2.40); PHOSPHORUS 3.4 mg/dL (2.5-4.9); POTASSIUM 3.9 mmol/L (3.5-5.1); TOTAL PROTEIN, SERUM 9.1 g/dL (6.0-8.3)
[2023-08-09] MEDS: IRON SUCROSE COMPLEX 300 MG in 0.9% NACL 250ML 250 ML IV ONE (21:28)
[2023-08-09] MEDS: SODIUM BICARBONATE 650 MG TAB PO SCH (21:28)
[2023-08-10 03:31] VITALS: BP 162/56; PULSE 69; RESP 20
[2023-08-10 03:43] LABS: BASOPHILS # (AUTO) 0.03 K/uL (0.00-0.20); BASOPHILS % (AUTO) 0.7 % (0.0-5.0); EOSINOPHILS # (AUTO) 0.14 K/uL (0.00-0.70); EOSINOPHILS % (AUTO) 3.2 % (0.0-8.0); HEMATOCRIT 26.4 % (36-48); IMMATURE GRANULOCYTE ABSOLUTE 0.11 K/uL (0-1); LYMPHOCYTES # (AUTO) 1.1 K/uL (1.0-4.8); LYMPHOCYTES % (AUTO) 25.5 % (21.0-51.0); MEAN CORPUSCULAR HGB CONC 32.6 g/dL (32.0-36.0); MONOCYTES # (AUTO) 0.4 K/uL (0.1-1.0); MONOCYTES % (AUTO) 8.3 % (3.0-13.0); NEUTROPHILS # (AUTO) 2.6 K/uL (1.8-7.7); NEUTROPHILS % (AUTO) 59.8 % (40.0-77.0); NUCLEATED RED BLOOD CELLS 0.5 % (0.0-0.19); PLATELET COUNT (AUTO) 187 K/uL (130-400); RED BLOOD CELL COUNT(AUTO) 3.07 MIL/uL (4.00-5.50); RED CELL DISTRIBUTION WIDTH 16.8 % (11.0-15.5); WHITE BLOOD COUNT (AUTO) 4.3 K/uL (4.8-10.8)
[2023-08-10 03:53] LABS: ALBUMIN 1.5 g/dL (3.5-5.0); BILIRUBIN,TOTAL 0.1 mg/dL (0.2-1.0); CREATININE 1.7 mg/dL (0.5-1.5); POTASSIUM 3.7 mmol/L (3.5-5.1); TOTAL PROTEIN, SERUM 9.2 g/dL (6.0-8.3)
[2023-08-10 07:18] VITALS: PULSE 88; RESP 18
[2023-08-10 07:20] VITALS: BP 161/69; PULSE 74; RESP 16
[2023-08-10 08:45] VITALS: O2SAT 98
[2023-08-10] MEDS: Vitamin B Complex/Vit C/Folic Acid PO SCH (10:17)
[2023-08-10] MEDS ORDERED: LOSA-418 PO (10:56)
[2023-08-10] MEDS ORDERED: SODI650T PO (10:56)
[2023-08-10 11:25] VITALS: BP 159/71; PULSE 76; RESP 16
[2023-08-10] MEDS: LOSARTAN 50 MG TABLET PO SCH (12:15)
[2023-08-11 19:09] LABS: ALBUMIN (IFE & ELECTROPHOR) 2.7 g/dL (2.9-4.4); ALBUMIN/GLOBULIN RATIO (IFE) 0.5 (0.7-1.7); ALPHA-1 (IFE & PEP) 0.4 g/dL (0.0-0.4); BETA (IFE & ELP) 0.9 g/dL (0.7-1.3); GAMMA GLOBULINS (IFE & ELP) 4.1 g/dL (0.4-1.8); GLOBULIN TOTAL (IFE) 6.4 g/dL (2.2-3.9); IGA (IFE) 12 mg/dL (64-422); IGG (IMMUNOFIXATION) 6048 mg/dL (586-1602); IGM (IMMUNOFIXATION) 12 mg/dL (26-217); M-SPIKE (IEP) 3.5 g/dL (Not Observed); TOTAL PROTEIN 9.1 g/dL (6.0-8.5)
[2023-08-12 14:13] LABS: GAMMA URINE 18.6 % (.); UPROT ELECT. M-SPIKE mg/24HR 57 mg/24 hr (Not Observed)
[2023-08-12 15:14] LABS: ALBUMIN URINE (ELP24) 36.5 % (NOT ESTAB.)
== END 2023-08-10 15:00 | disposition home or self-care (01) | DRG 871 ==
LOC: EDH 07:04 → EDHIP 07:05 → 2DH 14:57
PROVIDERS: ADMIT Internal Medicine; ATTEND Internal Medicine
PROC: 30233N1 Transfusion of Nonautologous Red Blood Cells into Peripheral Vein, Percutaneous Approach (ICD-10-PCS; principal; 2023-08-07)
DX: A41.9 Sepsis, unspecified organism (principal); I21.A1 Myocardial infarction type 2; U07.1 COVID-19; N17.9 Acute kidney failure, unspecified; E87.20 Acidosis, unspecified; E87.1 Hypo-osmolality and hyponatremia; N18.32 Chronic kidney disease, stage 3b; E66.3 Overweight; I08.1 Rheumatic disorders of both mitral and tricuspid valves; D63.1 Anemia in chronic kidney disease; E11.22 Type 2 diabetes mellitus with diabetic chronic kidney disease; E78.5 Hyperlipidemia, unspecified; E83.51 Hypocalcemia; E86.0 Dehydration; I12.9 Hypertensive chronic kidney disease with stage 1 through stage 4 chronic kidney disease, or unspecified chronic kidney disease; R62.7 Adult failure to thrive; Z87.11 Personal history of peptic ulcer disease; Z79.899 Other long term (current) drug therapy; Z68.21 Body mass index [BMI] 21.0-21.9, adult
CPT/HCPCS: 36415; 36600; 70450; 71045; 74176; 76770; 80048; 80053; 81001; 82270; 82550; 82570; 82607; 82728; 82746; 82803; 82948; 83036; 83540; 83550; 83605; 83615; 83735; 83880; 84100; 84145; 84156; 84166; 84443; 84484; 84550; 85014; 85018; 85025; 85045; 85610; 85651; 85730; 86140; 86325; 86334; 86850; 86900; 86901; 86923; 87040; 87088; 87635; 87804; 87880; 93306; 94640; 94664; C9113; G0378; J0360; J0456; J0696; J1100; J1650; J1756; J1885; J2765; J3490; J7030; J7050; P9016; G8980-CI; G8983-CI

== ENCOUNTER 2024-05-02 13:45 | Inpatient (IN) | payer SELFPAY ==
[~2024-05-02] VITALS: Ht 152.4 cm; Wt 55.7 kg
[~2024-05-02 13:45] MED LIST changes: +AZIT250T PO; +LOSA-418 PO; +MONT-46 PO; +NIFE-40 PO; +SODI650T PO
--- NOTE | 2024-05-02 14:02 | ERN ---
ED Note History of Present Illness Stated Complaint: FEVER Chief Complaint: Fever Time Seen by MD: 13:57 Dictation: PATIENT IS AN 83-YEAR-OLD FEMALE COMING IN WITH FLU-LIKE SYMPTOMS TO INCLUDE BODY ACHES FEVER CHILLS SORE THROAT WITH PAINFUL SWALLOWING. IN ADDITION SHE IS COMPLAINING OF NON TRAUMA LEFT HIP PAIN SHE HAS HAD FOR SEVERAL DAYS. DENIES ANY CHEST PAIN BACK PAIN SOB NO LOSS OF TASTE OR SMELL. TEMPERATURE 102 IN TRIAGE. Allergies: Coded Allergies: No Known Drug Allergies (Unverified Allergy, Unknown, 12/30/21) Home Meds Active Scripts Nifedipine (Nifedipine ER) 30 Mg Tab.er.24, 90 MG PO DAILY, #60 TAB Prov:KIMMY BREAUX [facility] 12/02/23 Montelukast Sodium (Singulair 10Mg) 10 Mg Tab, 10 MG PO DAILY, #30 TAB Prov:KIMMY BREAUX [facility] 12/02/23 Azithromycin (Zithromax) 250 Mg Tablet, 500 MG PO Q24H, #10 TAB Prov:KIMMY BREAUX [facility] 12/02/23 Sodium Bicarbonate (Sodium Bicarbonate) 650 Mg Tablet, 650 MG PO BID, #60 TAB 0 Refills Prov:MILES JIMÉNEZ MD 08/10/23 Losartan Potassium (Cozaar) 50 Mg Tablet, 50 MG PO BID, #60 TAB 0 Refills Prov:MILES JIMÉNEZ MD 08/10/23 Cyanocobalamin/Folic Acid (Vitamin H44-Xjfti Acid Tablet) 1 Each Tablet, 1 EACH PO DAILY for 30 Days, #30 TAB Prov:SLOANE BAXTER NP 07/22/22 Pantoprazole Sodium (Protonix) 40 Mg Tablet.dr, 40 MG PO BID for 60 Days, #60 TAB 1 Refill Prov:SLOANE BAXTER NP 07/22/22 Nifedipine (Nifedipine ER) 90 Mg Tablet.er, 90 MG PO DAILY for HIGH BLOOD PRESSURE for 30 Days, #30 TAB 1 Refill Prov:MARYANN JAMES [facility] 12/31/21 Reported Medications Metformin HCl (Metformin HCl) 500 Mg Tablet, 1 TAB PO DAILY for 30 Days, #60 TAB 0 Refills 05/02/24 Nifedipine (Nifedipine ER) 90 Mg Tablet.er, 1 TAB PO DAILY for 30 Days, #30 TAB 0 Refills 05/02/24 Sodium Bicarbonate (Sodium Bicarbonate) 650 Mg Tablet, 1 TAB PO BID for indigestion for 30 Days, #60 TAB 0 Refills 05/02/24 Pregabalin (Pregabalin) 25 Mg Capsule, 1 CAP PO TID PRN for PAIN MDD 3 Capsule(s) for 30 Days, #90 CAP 0 Refills 05/02/24 Metformin HCl (Metformin HCl) 500 Mg Tablet, 500 MG PO AM, TAB 07/18/22 Gabapentin (Gabapentin) 100 Mg Capsule, 100 MG PO DAILY, CAP 07/18/22 Ferrous Sulfate (Ferrous Sulfate) 325 Mg Ectab, 325 MG PO AM, TAB.EC 12/30/21 Past Medical History Past Medical History: Anemia, Diabetes-Type II, Hypertension Surgical History: None PSYCH History: no pertinent psych hx Social History: Negative, Lives with family History: Not Applicable RN Note Reviewed/Agreed w/PFSH: Yes Review of System Dictation CONSTITUTIONAL: NEGATIVE EXCEPT FOR HPI FEVER CHILLS HEAD/FACE: NEGATIVE EXCEPT FOR HPI EENT: NEGATIVE EXCEPT FOR HPI RHINITIS WITH SORE THROAT RESPIRATORY: NEGATIVE EXCEPT FOR HPI GASTROINTESTINAL/ABDOMINAL: NEGATIVE EXCEPT FOR HPI GENITOURINARY: NEGATIVE EXCEPT FOR HPI MUSCULOSKELETAL: NEGATIVE EXCEPT FOR HPI LEFT HIP PAIN/NON TRAUMA INTEGUMENTARY: NEGATIVE EXCEPT FOR HPI NEUROLOGICAL/PSYCH: NEGATIVE EXCEPT FOR HPI HEMATOLOGIC/LYMPHATIC: NEGATIVE EXCEPT FOR HPI ALL SYSTEMS NEGATIVE, EXCEPT NOTED ABOVE. 13 POINT REVIEW OF SYSTEMS ASSESSED AND ALL NEGATIVE EXCEPT FOR ABOVE. Initial Vital Sign VS Vital Signs Date Time Temp Pulse Resp B/P (MAP) Pulse Ox O2 Delivery O2 Flow Rate FiO2 05/02/24 13:56 102.0 83 18 198/78 97 05/02/24 14:32 Room Air* 0 21 Physical Exam Dictation VITAL SIGNS REVIEWED GENERAL APPEARANCE: ALERT, ORIENTED X 3, MILD ACUTE DISTRESS, WELL DEVELOPED, NOURISHED. HEAD AND FACE: NON-TRAUMATIC. EYES: PERRL, PINK CONJUNCTIVAS, EYELID NO TRAUMA, ANTERIOR CHAMBER WITH ARCUS SENILIS. EARS: PINNAS INTACT AND NO SIGNS OF TRAUMA OR ERYTHEMA EAR CANALS CLEAR AND NO DISCHARGE TM NO ERYTHEMA NOSE: CLEAR DISCHARGE, NO BLEEDING. OROPHARYNX: MOUTH NORMAL, TONGUE PINK, PHARYNX CLEAR MILD PHARYNGEAL ERYTHEMA, TONSILS NO EXUDATES, NO ABSCESSES NOTED, MUCOUS MEMBRANE MOIST UVULA MIDLINE, VOICE IS CLEAR NECK: SUPPLE, NON-TENDER, NO THYROMEGALY, NO MASSES, NO JVD, NO BRUITS BREAST:DEFERRED CHEST:NO TENDERNESS, NO CREPITUS, NO PARADOXICAL MOVEMENT, NO RETRACTIONS LUNGS:CLEAR, WELL-VENTILATED, SYMMETRIC, NO RALES, NO WHEEZING, NO RHONCHI, NO STRIDOR, GOOD BREATH SOUNDS BILATERALLY HEART: REGULAR RATE, REGULAR RHYTHM, NO MURMUR, NO GALLOPS VASCULAR: NO PERIPHERAL EDEMA, ABDOMEN: SOFT, POSITIVE BOWEL SOUNDS, NONDISTENDED, NO GUARDING, NONTENDER, NO REBOUND, NO MASSES NO HEPATOMEGALY, NO SPLENOMEGALY, NO UREÑA'S SIGN, NO HERNIAS. RECTAL: DEFERRED GENITAL: DEFERRED NEUROLOGICAL: NORMAL SPEECH, MOTOR FUNCTION INTACT, SENSORY FUNCTION INTACT MUSCULOSKELETAL: NECK NONTENDER, FULL RANGE OF MOTION, BACK NONTENDER, FULL RANGE OF MOTION, EXTREMITIES: LEFT ANTEROLATERAL HIP TENDERNESS WITH PALPATION NO SHORTENING OR ROTATION OF LEG. PATIENT USES CANE FOR ASSISTED WALKING. SKIN: COLOR PINK, DRY, NO TURGOR, NO RASH, NO LACERATIONS, NO ABRASIONS, NO CONTUSIONS. LYMPHATIC: DEFERRED Results (Laboratory/Radiology) Laboratory/Radiology Laboratory Tests Test 05/02/24 14:21 White Blood Count 10.0 K/uL (4.8-10.8) Red Blood Count 2.10 MIL/uL (4.00-5.50) L Hemoglobin 6.2 g/dL (12.0-16.0) *L Hematocrit 20.2 % (36-48) *L Mean Corpuscular Volume 96.2 fL (79-99) Mean Corpuscular Hemoglobin 29.5 pg (27.0-33.0) Mean Corpuscular Hemoglobin Concent 30.7 g/dL (32.0-36.0) L Red Cell Distribution Width 17.0 % (11.0-15.5) H Platelet Count 165 K/uL (130-400) Mean Platelet Volume 9.5 fL (7.5-10.5) Immature Granulocyte % (Auto) 2.5 % (0-1) H Neutrophils (%) (Auto) 76.4 % (40.0-77.0) Lymphocytes (%) (Auto) 11.3 % (21.0-51.0) L Monocytes (%) (Auto) 8.0 % (3.0-13.0) Eosinophils (%) (Auto) 1.3 % (0.0-8.0) Basophils (%) (Auto) 0.5 % (0.0-5.0) Neutrophils # (Auto) 7.7 K/uL (1.8-7.7) Lymphocytes # (Auto) 1.1 K/uL (1.0-4.8) Monocytes # (Auto) 0.8 K/uL (0.1-1.0) Eosinophils # (Auto) 0.13 K/uL (0.00-0.70) Basophils # (Auto) 0.05 K/uL (0.00-0.20) Absolute Immature Granulocyte (auto 0.25 K/uL (0-1) Nucleated Red Blood Cells 1.4 % (0.0-0.19) H Red Blood Cell Morphology See comments Sodium Level 135 mmol/L (136-145) L Potassium Level 4.5 mmol/L (3.5-5.1) Chloride Level 104 mmol/L (101-111) Carbon Dioxide Level 21 mmol/L (21-32) Blood Urea Nitrogen 33 mg/dL (7-18) H Creatinine 2.3 mg/dL (0.5-1.0) H Glomerular Filtration Rate Calc 20 mL/min (>90) Random Glucose 181 mg/dL (70-105) H Lactic Acid Level 2.2 mmol/L (0.8-2.5) Total Calcium 8.7 mg/dL (8.5-10.1) Influenza Type A Antigen Negative For Type A Influenza Type B Antigen Negative For Type B SARS-CoV-2 Antigen (Rapid) PRESUMPTIVE NEGATIVE Group A Streptococcus Rapid negative (NEGATIVE) 1507 LEFT HIP X-RAY NEGATIVE EXCEPT DEGENERATIVE CHANGE Labs Reviewed?: Yes ED Course ED Course Orders Procedure Category Date Status Time Hip Unilat 2-3vw Left RAD 05/02/24 Taken 13:58 Covid19 (Sars Antigen LAB 05/02/24 Complete Rapid) 13:58 Rapid (Group A Strep) LAB 05/02/24 Complete 13:58 Acetaminophen 500mg PHA 05/02/24 Complete Tab (Tylenol 500mg T 14:00 Cbc With Differential LAB 05/02/24 Complete 13:58 Blood Cult ALETA 05/02/24 In Process 13:58 Urinalysis Profile LAB 05/02/24 Logged 13:58 Lactic Acid LAB 05/02/24 Complete 13:58 Basic Metabolic Panel LAB 05/02/24 Complete 13:58 Type And Screen BBK 05/02/24 Complete 14:45 Rbc-No Active Bleeding BBK 05/02/24 Complete 14:45 *Nursing CPOE 05/02/24 Transmitted Communication: 14:45 0.9%Nacl 1000ml (Ns PHA 05/02/24 Complete 1000ml) 15:00 Ceftriaxone 1g Vial PHA 05/02/24 Complete (Rocephine 1g Inj) 15:00 Chest 1vw RAD 05/02/24 Resulted 15:09 Influenza Type A & B, LAB 05/02/24 Complete Rapid 14:21 Edm Admit Bridge Order ADM 05/02/24 Transmitted 17:26 Lactic Acid (Removed) LAB 05/02/24 Logged 17:37 Vitamin B12 Serum LAB 05/02/24 In Process 17:45 Folic Acid Serum LAB 05/02/24 In Process 17:45 Thyroid Stimulating LAB 05/02/24 In Process Hormone 17:45 Hemoglobin A1c LAB 05/02/24 In Process 17:45 Telemetry Monitoring CPOE 05/02/24 Transmitted 17:45 0.9%Nacl 1000ml (Ns PHA 05/02/24 In Process 1000ml) 18:00 Zosyn 3.375gm+Ns 50ml PHA 05/02/24 Complete (Zosyn 3.375gm+Ns 21:00 Fall Precautions CPOE 05/02/24 Transmitted 17:45 Telemetry Monitoring CPOE 05/02/24 Transmitted 17:45 Scd Both Legs While CPOE 05/02/24 Transmitted In Bed 17:45 *Nursing CPOE 05/02/24 Transmitted Communication: 17:45 Admit Orders ADM 05/02/24 Transmitted 17:45 Elevate Hob At 30 CPOE 05/02/24 Transmitted Degrees 17:45 Urinalysis Profile LAB 05/02/24 Logged Catherized 17:48 Ct Abdomen/Pelvis W/O CT 05/02/24 Logged Contrast 17:48 Acetaminophen 500mg PHA 05/02/24 In Process Tab (Tylenol 500mg T 18:00 Ondansetron 4mg Inj PHA 05/02/24 In Process (Zofran 4mg Inj) 18:00 Hydralazine 20mg Inj PHA 05/02/24 In Process (Apresoline 20mg In 18:00 Vital Signs(Adult CPOE 05/02/24 Transmitted Hospitalist) 17:51 Daily Weights CPOE 05/02/24 Transmitted 17:51 I&O Q Shift CPOE 05/02/24 Transmitted 17:51 Nurse To Enter Home CPOE 05/02/24 Transmitted Medication 17:51 Condition: CPOE 05/02/24 Transmitted 17:51 Activity: Br W/Brp CPOE 05/02/24 Transmitted With Assist 17:51 Apply Scds CPOE 05/02/24 Transmitted 17:51 Active Bleeding(Vte) CPOE 05/02/24 Transmitted 17:51 Ferritin LAB 05/02/24 In Process 17:51 Iron Panel With %Sat LAB 05/02/24 Logged 17:51 Cate & Protein LAB 05/02/24 Logged Electropho Serum 17:51 Erythrocyte LAB 05/02/24 Logged Sedimentation Rate 17:54 Crp Quantitative LAB 05/02/24 In Process 17:54 Procalcitonin LAB 05/02/24 In Process 17:54 Thyroid Stimulating LAB 05/02/24 In Process Hormone 17:54 Free T3 LAB 05/02/24 In Process 17:54 T4 Free LAB 05/02/24 In Process 17:54 Hematology Consult CONPHYSVC 05/02/24 Transmitted 17:54 Nephrology Consult CONPHYSVC 05/02/24 Transmitted 17:54 Hemoglobin And LAB 05/02/24 Logged Hematocrit 21:00 Cbc With Differential LAB 05/03/24 Verified 04:00 Comprehensive LAB 05/03/24 Verified Metabolic Panel 04:00 Magnesium LAB 05/03/24 Verified 04:00 Pantoprazole 40mg Inj PHA 05/02/24 In Process (Protonix 40mg Inj 18:00 [id number]-[id number] LAB 05/02/24 Logged 17:58 Lactate Dehydrogenase LAB 05/02/24 In Process 17:58 Urine Protein LAB 05/02/24 Logged Elecphor. Random 17:58 [employer] Associate SS 05/02/24 Transmitted Evaluaton 17:58 Case Management CM 05/02/24 Transmitted Evaluation 17:58 Zosyn 3.375gm+Ns 50ml PHA 05/02/24 In Process (Zosyn 3.375gm+Ns 18:30 Zosyn 3.375gm+Ns 50ml PHA 05/03/24 In Process (Zosyn 3.375gm+Ns 09:00 Vital Signs Date Time Temp Pulse Resp B/P (MAP) Pulse Ox O2 Delivery O2 Flow Rate FiO2 05/02/24 17:10 99.1 64 16 144/34 97 Room Air* 0 21 05/02/24 15:52 71 24 163/55 97 Room Air* 0 21 05/02/24 14:32 102.0 80 24 159/57 97 Room Air* 0 21 05/02/24 14:11 102.0 05/02/24 13:56 102.0 83 18 198/78 97 FOURTEEN 50, PATIENT HAS HEMOGLOBIN HEMATOCRIT OF 6.2 AND 20, LACTIC ACID 2.2. PENDING RESULTS OF REMAINDER OF CHEMISTRY. PATIENT DOES HAVE A HISTORY OF SEPSIS AND CHRONIC KIDNEY DISEASE WITH A ANEMIA AND PRIOR BLOOD TRANSFUSIONS. WE WILL ORDER TYPE AND SCREEN TO DELIVER 1 UNIT OF PACKED RED BLOOD CELLS NOW ADDITIONALLY, WE WILL GIVE1 L OF NORMAL SALINE WITH1 G OF ROCEPHIN FOR SEPSIS DUE TO HISTORY OF CHRONIC KIDNEY DISEASE. PATIENT WILL BE MONITORED FOR HEMODYNAMIC STABILITY AND WILL BE ADMITTED TO THE HOSPITAL. SPOKE TO DAUGHTER AT LENGTH AT BEDSIDE AND SHE SAID THAT PATIENT HAS SEEN DR. DELGADO NEPHROLOGY IN THE PAST HOWEVER HAS NOT SEEN HIM SINCE NOVEMBER OF 2023. 1725/DR GENAO HERE AND REVIEWED LABS X-RAY AND WORKUP TO INCLUDE INTERVENTION FOR ANEMIA WITH TRANSFUSION OF 1 UNIT PACKED RED BLOOD CELLS HE AGREED TO ADMIT. Medical Decision Making MDM MDM: DIFFERENTIAL DIAGNOSIS: INFLUENZA/COVID/STREP/URINARY TRACT INFECTION/LEFT HIP PAIN SEPSIS RATIONALE: TESTS CONSIDERED AND ORDERED SECONDARY TO SHARED DECISION MAKING INCLUDE: LABS, AND RADIOLOGY PREVIOUS OUTSIDE RECORDS REVIEWED: OLD ER VISITS. REVIEWED RISK OF COMPLICATION AND/OR MORBIDITY OR MORTALITY OF PATIENT MANAGEMENT: PATIENT WILL BE ADMITTED FOR ANEMIA OF CHRONIC RENAL FAILURE/SEPSIS MEDICATIONS-PER MEDICATION RECONCILIATION NEED FOR HOSPITALIZATION: PATIENT DOES MEET CRITERIA FOR HOSPITALIZATION.PATIENT WILL BE ADMITTED FOR ANEMIA OF CHRONIC RENAL FAILURE/SEPSIS POSSIBLE NEPHROLOGY CONSULTATION NEED FOR EMERGENCY MAJOR/MINOR SURGERY: NO THERE ARE NO SOCIAL CONCERNS WITH THIS PATIENT. PRESCRIPTION DRUG MANAGEMENT PRESCRIPTIONS WILL INCLUDE SYMPTOMATIC CARE PATIENT'S PRIOR EXTERNAL MEDICAL RECORDS FROM OTHER ER VISITS WERE REVIEWED BY ME INDICATED. PRIOR TESTING AND RESULTS FROM PREVIOUS VISITS WERE REVIEWED. PRIOR TESTS WERE TAKEN INTO ACCOUNT WITH MEDICAL DECISION MAKING AND RESOURCE UTILIZATION, INDEPENDENT HISTORIAN/HISTORIANS WERE USED TO OBTAIN COMPLETE MEDICAL HISTORY. I INDEPENDENTLY INTERPRETED THE TEST THAT WERE PERFORMED, RESULTS WERE REVIEWED BY ME AND CONSIDERED FINDINGS ON RADIOLOGY IF ORDERED. MEDICAL MANAGEMENT AND EXAMINATION INTERPRETATION DISCUSSIONS WERE HAD BY ME WITH OTHER QUALIFIED HEALTHCARE PROFESSIONALS INDICATED FOR THE PATIENT'S CARE. DX & DISP Disposition: Inpatient Decision to Admit Time: 15:57 Departure Impression: Primary Impression: Anemia of chronic renal failure, stage 4 (severe) Additional Impressions: Hyponatremia, Uncontrolled diabetes mellitus, Fever, Elevated lactic acid level Condition: Stable Referrals: SELF,REFERRAL (PCP) I have reviewed the case, and I agree with, Diagnosis and Plan ATTESTATION BY PHYSICIAN I PERFORMED THE SUBSTANTIVE PORTION OF THE VISIT. I HAVE REVIEWED AND PERSONALLY MADE AND APPROVED THE MANAGEMENT PLAN THAT IS DOCUMENTED IN THE NOTE BY MYSELF FOR THE A PP. I ACKNOWLEDGED FOR RESPONSIBILITY FOR THE PATIENT'S MANAGEMENT PLAN. STELLA FRANKEL NP May 02, 2024 14:02 CECY DAVIDSON MD May 02, 2024 18:49
[2024-05-02] MEDS: acetaMINOPHEN 500 MG TABLET PO ONE (14:11)
[2024-05-02 14:36] LABS: BASOPHILS # (AUTO) 0.05 K/uL (0.00-0.20); BASOPHILS % (AUTO) 0.5 % (0.0-5.0); EOSINOPHILS # (AUTO) 0.13 K/uL (0.00-0.70); EOSINOPHILS % (AUTO) 1.3 % (0.0-8.0); IMMATURE GRANULOCYTE ABSOLUTE 0.25 K/uL (0-1); LYMPHOCYTES # (AUTO) 1.1 K/uL (1.0-4.8); LYMPHOCYTES % (AUTO) 11.3 % (21.0-51.0); MEAN CORPUSCULAR HEMOGLOBIN 29.5 pg (27.0-33.0); MEAN CORPUSCULAR HGB CONC 30.7 g/dL (32.0-36.0); MEAN CORPUSCULAR VOLUME 96.2 fL (79-99); MONOCYTES # (AUTO) 0.8 K/uL (0.1-1.0); NEUTROPHILS # (AUTO) 7.7 K/uL (1.8-7.7); NEUTROPHILS % (AUTO) 76.4 % (40.0-77.0); NUCLEATED RED BLOOD CELLS 1.4 % (0.0-0.19); PLATELET COUNT (AUTO) 165 K/uL (130-400)
[2024-05-02 14:43] LABS: HEMATOCRIT 20.2 % (36-48)
[2024-05-02 14:45] LABS: RAPID GROUP A STREP negative (NEGATIVE)
[2024-05-02 14:50] LABS: CREATININE 2.3 mg/dL (0.5-1.0); POTASSIUM 4.5 mmol/L (3.5-5.1)
[2024-05-02 14:58] LABS: COVID19 (SARS ANTIGEN RAPID) PRESUMPTIVE NEGATIVE (NEGATIVE)
[2024-05-02 15:11] LABS: INFLUENZA TYPE A Negative For Type A (NEGATIVE); INFLUENZA TYPE B Negative For Type B (NEGATIVE)
[2024-05-02] MEDS: 0.9%NACL 1000ML 1,000 ML IV ONE (15:18)
[2024-05-02] MEDS: cefTRIAXone 1G VIAL IVPB ONE (15:18)
[2024-05-02 16:09] VITALS: TEMP 98.3
--- NOTE | 2024-05-02 16:28 | HMCIMG ---
CHEST 1VW CLINICAL HISTORY: SOB/FEVER COMPARISON: 11/28/2023 TECHNIQUE: Single view of the chest was obtained. FINDINGS: Lungs are clear. The cardiac size mildly enlarged. The bony structures are within normal limits. IMPRESSION: Cardiomegaly.
--- NOTE | 2024-05-02 17:10 | NUR ---
BLOOD INITIATED BY PAULINE BASS
[2024-05-02] MEDS ORDERED: NIFE90TA72 PO (17:52)
[2024-05-02] MEDS ORDERED: SODI650T PO (17:52)
[2024-05-02] MEDS ORDERED: METF-444 PO (17:52)
[2024-05-02] MEDS ORDERED: PREG25CA19 PO (17:52)
[2024-05-02] MEDS ORDERED: hydrALAZine 20MG/ML VIAL IV PRN (18:00)
[2024-05-02] MEDS ORDERED: ondanSETRON 4MG INJ IVP PRN (18:00)
[2024-05-02] MEDS ORDERED: acetaMINOPHEN 500 MG TABLET PO PRN (18:00)
--- NOTE | 2024-05-02 18:07 | NUR ---
NEPHROLOGY CONSULT, SPOKE TO DR CARDENAS TELEPHONE ORDERS RECIEVED AND VERBALLY READ BACK.
[2024-05-02] MEDS: PANTOPrazole 40 MG/VIAL IVP SCH (18:33)
[2024-05-02] MEDS: 0.9%NACL 1000ML 1,000 ML IV SCH (18:34)
--- NOTE | 2024-05-02 18:47 | NUR ---
PER NURSE, WILL NEED TO COME WITH PATIENT DUE TO PATIENT RECEIVING BLOOD TRANSFUSION. AT THIS TIME, NURSE IS BUSY UNABLE TO COME WITH PATIENT TO CT DEPT.
[2024-05-02 19:20] LABS: HEMOGLOBIN A1C 6.4 % (4.0-6.0)
[2024-05-02 19:30] LABS: THYROID STIMULATING HORMONE 10.4 uIU/mL (0.36-3.74)
[2024-05-02 19:42] LABS: APPEARANCE,URINE CLEAR (CLEAR); BILIRUBIN,URINE NEGATIVE (NEGATIVE); COLOR,URINE COLORLESS (YELLOW); GLUCOSE, URINE (UA) NEGATIVE (NEGATIVE); KETONES,URINE NEGATIVE (NEGATIVE); LEUKOCYTE ESTERASE ,URINE NEGATIVE Leu/uL (NEGATIVE); NITRATE,URINE 1+ (NEGATIVE); OCCULT BLOOD,URINE SMALL (NEGATIVE); PROTEIN,URINE 20 mg/dL (NEGATIVE); UROBILINOGEN,URINE 0.2 mg/dL (0.2-1.0)
[2024-05-02 19:43] LABS: ADD UA MICROSCOPIC YES
[2024-05-02 19:57] LABS: BACTERIA,URINE MOD /HPF (None Seen); MUCUS,URINE RARE LPF (None Seen); RBC,URINE 0-1 /HPF (0-1); SQUAMOUS EPITHELIAL CELL,UR RARE /HPF (0-2)
[2024-05-02] MEDS: nifeDIPine ER 30 MG TAB PO SCH (20:49)
[2024-05-02] MEDS: ZOSYN 3.375GM +NS 50ML IVPB SCH (20:49)
[2024-05-02] MEDS: SODIUM BICARBONATE 650 MG TAB PO SCH (20:49)
--- NOTE | 2024-05-02 20:55 | HMCIMG ---
CT ABDOMEN/PELVIS W/O CONTRAST CLINICAL HISTORY: sepsis, suprapubic abdominal pain, hx of RLL mass COMPARISON: 11/27/2023 TECHNIQUE: Sequential axial images of abdomen and pelvis without contrast and with sagittal and coronal reconstructions. CT was performed with one or more of the following dose reduction techniques: automated exposure control, adjustment of the mA and/or kV according to patient size, or use of iterative reconstruction technique FINDINGS: Lung bases are clear. There is cardiomegaly with advanced mitral valve calcification. The liver and spleen are unremarkable. The gallbladder pancreas and right adrenal gland are unremarkable. Note is made of a 4.2 cm left adrenal mass. The kidneys and bladder are unremarkable. The uterus is within normal limits. There is moderate amount of fecal material in the colon with no identified bowel obstruction. There is no bulky abdominal or retroperitoneal lymphadenopathy. There is no free or free fluid. Note is made of mild calcified atherosclerotic vascular disease of the aorta without aneurysmal dilatation. There is accentuation of the normal lumbar lordosis. IMPRESSION: Constipation. Left adrenal mass that was demonstrated on the prior examination.
[2024-05-02] MEDS ORDERED: ZOSYN 3.375GM +NS 50ML IVPB SCH (21:00)
--- NOTE | 2024-05-02 21:07 | NUR ---
NURSE BUSY FOR REPORT AT THIS TIME.
--- NOTE | 2024-05-02 21:23 | HP ---
[facility] HISTORY AND PHYSICAL Date of Service: May 02, 2024 Time of Service: 20:53 HISTORY OF PRESENT ILLNESS: Date of service: 05/02/2024 83-year-old female with history of hypertension, hyperlipidemia, stage 3 chronic kidney disease, type 2 diabetes mellitus, history of recurrent anemia requiring blood transfusions, with concerns for plasma cell dyscrasia/multiple myeloma who presented to the ER for further evaluation of generalized fatigue, malaise, fevers, chills and poor oral intake. Symptoms started last night and patient reports having asthenia, malaise and suprapubic discomfort. Denies any significant cough otherwise. Patient denies any syncope. Daughter has noticed that patient has been more fatigued and tired as well. Oral intake has been poor. Patient was hospitalized on 11/2023 with acute on chronic anemia requiring blood transfusion, and was undergoing further workup for multiple myeloma/plasma cell dyscrasia. Patient was followed by Dr. López on last hospitalization. 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 Daughter states that patient has been unable to follow up with Nephrology or oncology as outpatient since last discharge. On presentation to the hospital, patient was noted to be febrile with T-max of 102.0 F, heart rate of 80, blood pressure of 159/57 saturating 97% on room air. Chest x-ray showed cardiomegaly with no significant infiltrates. Labs [place] [address], hemoglobin of 6.2, hematocrit of 20.2, platelet count of 818819. CMP remarkable for sodium of 135, potassium 4.5, CO2 of 21, BUN of 33, creatinine 2.3, TSH of 10.4. Patient will be admitted under hospitalist service further management of severe anemia, sepsis with concerns for UTI. Patient will receive broad-spectrum antibiotics and we will see how patient progresses in the next 2-3 days. REVIEW OF SYSTEMS CONSTITUTIONAL: Fatigue, malaise, asthenia, fevers and chills NEUROLOGICAL: Denies headache, amaurosis fugax, motor weakness, sensory deficit, vertigo/spinning sensation, gait abnormalities, or tremors. ENT: No hearing loss, otalgia, otorrhea, rhinitis, rhinorrhea, hoarseness, or sore throat. CARDIOVASCULAR: Denies any exertional angina, dyspnea on exertion, orthopnea, paroxysmal nocturnal dyspnea, palpitations, life-threatening arrhythmias, claudication. PULMONARY: Denies any shortness of breath, cough, phlegm/sputum, hemoptysis, pleuritic chest pain. SLEEP: Denies morning headaches, daytime somnolence or napping. Denies difficulty falling asleep, staying asleep, waking from sleep. Denies knowledge of snoring. GASTROINTESTINAL: Nausea, poor oral intake, suprapubic discomfort GENITOURINARY: Denies frequency, urgency, nocturia, hematuria or incontinence (Storage/Irritative symptoms.) Low urinary stream, straining to void, urinary intermittency or hesitancy, splitting of the voiding stream, terminal dribbling. ENDOCRINOLOGIC: Denies polyuria, polydipsia, polyphagia or heat/cold intolerances. HEMATOLOGIC: Denies thrombophilia/previous clots, or coagulopathy/bleeding disorders. ONCOLOGIC: Denies personal history of malignancy. DERMATOLOGIC: Denies rashes or pruritus. PSYCHIATRIC: Denies any suicidal or homicidal ideation. Denies hallucinations. PAST MEDICAL HISTORY: Anemia, hypertension, hyperlipidemia, type 2 diabetes mellitus, chronic kidney disease stage 3, patient on last admission on 12/07 was being worked up for multiple myeloma/plasma cell dyscrasia PAST SURGICAL HISTORY: History of cataract surgery PAST SOCIAL HISTORY: Lives with daughter at home, independent with ADLs FAMILY HISTORY: Denies family history of blood disorders Allergies: Patient denies known drug allergies. Home medications: Metformin 500 mg daily, nifedipine 90 mg daily, Lyrica 25 mg t.i.d. p.r.n., sodium bicarbonate 650 mg b.i.d. Coded Allergies: No Known Drug Allergies (Unverified Allergy, Unknown, 12/30/21) PHYSICAL EXAM GENERAL APPEARANCE: The patient is awake, alert, appears debilitated and weak NEUROLOGICAL: Cranial nerves II-XII grossly intact. Motor is 5/5 in bilateral upper and lower extremities proximal to distal. No sensory deficits. HEENT: Face is symmetric. Pupils are equal and reactive. Extraocular movements are intact. NECK: Supple. No JVD. No thyromegaly. No submental, submandibular, pre- /postauricular, occipital or supraclavicular lymphadenopathy. CHEST: Normal chest expansion. No Telemetry. LUNGS: Absence of any rales, rhonchi or any wheezing. CARDIOVASCULAR: Regular. S1 and S2 normal. 6 murmur noted of the precordium ABDOMEN: Mild tenderness to palpation of the suprapubic region, no rebound or guarding noted : Deferred. No Swift. EXTREMITIES: Non-edematous and not cyanotic. No clubbing. Good capillary refill. SKIN: No skin breakdown. Vital Sign (Last 24 Hours) 05/02/24 20:16 Temp 98.6 Pulse 58 Resp 18 B/P (MAP) 168/53 Pulse Ox 98 O2 Delivery Room Air* O2 Flow Rate 0 FiO2 21 LABS: Laboratory: Test 05/02/24 19:09 05/02/24 14:21 Range/Units Urine Color COLORLESS YELLOW Urine Appearance CLEAR CLEAR Urine pH 5.0 5.0-8.0 Urine Specific [place] 1.006 1.001-1.031 Urine Protein 20 H NEGATIVE mg/dL Urine Glucose (UA) NEGATIVE NEGATIVE mg/dL Urine Ketones NEGATIVE NEGATIVE mg/dL Urine Occult Blood SMALL H NEGATIVE Urine Nitrate 1+ H NEGATIVE Urine Bilirubin NEGATIVE NEGATIVE mg/dL Urine Urobilinogen 0.2 0.2-1.0 mg/dL Urine Leukocyte Esterase NEGATIVE NEGATIVE Sergey/uL Urine RBC 0-1 0-1 /HPF Urine WBC 2-5 H 0-1 /HPF Urine Squamous Epithelial Cells RARE 0-2 /HPF Urine Bacteria MOD None Seen /HPF White Blood Count 10.0 4.8-10.8 K/uL Red Blood Count 2.10 L 4.00-5.50 MIL/uL Hemoglobin 6.2 *L 12.0-16.0 g/dL Hematocrit 20.2 *L 36-48 % Mean Corpuscular Volume 96.2 79-99 fL Mean Corpuscular Hemoglobin 29.5 27.0-33.0 pg Mean Corpuscular Hemoglobin Concent 30.7 L 32.0-36.0 g/dL Red Cell Distribution Width 17.0 H 11.0-15.5 % Platelet Count 165 130-400 K/uL Mean Platelet Volume 9.5 7.5-10.5 fL Immature Granulocyte % (Auto) 2.5 H 0-1 % Neutrophils (%) (Auto) 76.4 40.0-77.0 % Lymphocytes (%) (Auto) 11.3 L 21.0-51.0 % Monocytes (%) (Auto) 8.0 3.0-13.0 % Eosinophils (%) (Auto) 1.3 0.0-8.0 % Basophils (%) (Auto) 0.5 0.0-5.0 % Neutrophils # (Auto) 7.7 1.8-7.7 K/uL Lymphocytes # (Auto) 1.1 1.0-4.8 K/uL Monocytes # (Auto) 0.8 0.1-1.0 K/uL Eosinophils # (Auto) 0.13 0.00-0.70 K/uL Basophils # (Auto) 0.05 0.00-0.20 K/uL Absolute Immature Granulocyte (auto 0.25 0-1 K/uL Nucleated Red Blood Cells 1.4 H 0.0-0.19 % Red Blood Cell Morphology See comments Sodium Level 135 L 136-145 mmol/L Potassium Level 4.5 3.5-5.1 mmol/L Chloride Level 104 101-111 mmol/L Carbon Dioxide Level 21 21-32 mmol/L Blood Urea Nitrogen 33 H 7-18 mg/dL Creatinine 2.3 H 0.5-1.0 mg/dL Glomerular Filtration Rate Calc 20 >90 mL/min Random Glucose 181 H 70-105 mg/dL Hemoglobin A1c 6.4 H 4.0-6.0 % Estimated Average Glucose (eAG) 137 H 70-126 mg/dL Lactic Acid Level 2.2 0.8-2.5 mmol/L Total Calcium 8.7 8.5-10.1 mg/dL Ferritin 282 H 15-150 ng/mL Lactate Dehydrogenase 197 81-234 U/L C-Reactive Protein, Quantitative 38.60 H 0.5-3.0 mg/L Vitamin B12 Level 712 193-986 pg/mL Folic Acid (LAB) 13.70 2-20 ng/mL Procalcitonin 0.26 0.05-0.5 ng/mL Thyroid Stimulating Hormone (TSH) 10.40 #H 0.36-3.74 uIU/mL Free Thyroxine (T4) Direct 0.80 0.76-1.46 ng/dL Free Triiodothyronine (T3) pg/mL 1.70 L 2.18-3.98 pg/mL Influenza Type A Antigen Negative For Type A NEGATIVE Influenza Type B Antigen Negative For Type B NEGATIVE SARS-CoV-2 Antigen (Rapid) PRESUMPTIVE NEGATIVE NEGATIVE Group A Streptococcus Rapid negative NEGATIVE Current Medications Medications (Trade) Dose Ordered Sig/Mare Route PRN Reason Start Time Stop Time Status Last Admin Dose Admin Acetaminophen (TYLenol 500MG TAB) 500 mg Q6H PRN PO MILD PAIN (1-3) 05/02/24 18:00 06/01/24 17:59 Hydralazine HCl (APRESOLine 20MG INJ) 10 mg Q6H PRN IV ADMINISTER FOR SBP > 160 05/02/24 18:00 06/01/24 17:59 Nifedipine (adALAT 30MG) 30 mg ONCE PO 05/02/24 21:00 05/02/24 23:59 05/02/24 20:49 30 MG Nifedipine (adALAT 30MG) 90 mg DAILY PO 05/03/24 09:00 06/02/24 08:59 Ondansetron HCl (zoFRAN 4MG INJ) 4 mg Q6H PRN IVP NAUSEA/VOMITING 05/02/24 18:00 06/01/24 17:59 Pantoprazole Sodium (PROTonix 40MG INJ) 40 mg Q24H IVP 05/02/24 18:00 06/01/24 17:59 05/02/24 18:33 40 MG Piperacillin Sod/ Tazobactam Sod (Zosyn 3.375gm+NS 50ml) 3.375 gm Q12H IVPB 05/02/24 18:30 05/02/24 23:59 05/02/24 20:49 3.375 GM Piperacillin Sod/ Tazobactam Sod (Zosyn 3.375gm+NS 50ml) 3.375 gm ZOSY12 IVPB 05/02/24 21:00 05/02/24 18:02 DC Piperacillin Sod/ Tazobactam Sod (Zosyn 3.375gm+NS 50ml) 3.375 gm ZOSY12 IVPB 05/03/24 09:00 05/13/24 08:59 Sodium Bicarbonate (Sodium Bicarbonate) 650 mg BID PO 05/02/24 21:00 06/01/24 20:59 05/02/24 20:49 650 MG Sodium Chloride 1,000 ml @ 50 mls/hr Q20H IV 05/02/24 18:00 06/01/24 17:59 05/02/24 18:34 50 MLS/HR DIAGNOSTICS / RADIOLOGY: SERVICE DT: 11/1747 REASON: sepsis, suprapubic abdominal pain, hx of RLL mass ORDERING PHYSICIAN: MARCIO RAINES MD PROCEDURE: ABD PEL WO - CT ABDOMEN/PELVIS W/O CONTRAST CT ABDOMEN/PELVIS W/O CONTRAST CLINICAL HISTORY: sepsis, suprapubic abdominal pain, hx of RLL mass COMPARISON: 11/27/2023 TECHNIQUE: Sequential axial images of abdomen and pelvis without contrast and with sagittal and coronal reconstructions. CT was performed with one or more of the following dose reduction techniques: automated exposure control, adjustment of the mA and/or kV according to patient size, or use of iterative reconstruction technique FINDINGS: Lung bases are clear. There is cardiomegaly with advanced mitral valve calcification. The liver and spleen are unremarkable. The gallbladder pancreas and right adrenal gland are unremarkable. Note is made of a 4.2 cm left adrenal mass. The kidneys and bladder are unremarkable. The uterus is within normal limits. There is moderate amount of fecal material in the colon with no identified bowel obstruction. There is no bulky abdominal or retroperitoneal lymphadenopathy. There is no free or free fluid. Note is made of mild calcified atherosclerotic vascular disease of the aorta without aneurysmal dilatation. There is accentuation of the normal lumbar lordosis. IMPRESSION: Constipation. Left adrenal mass that was demonstrated on the prior examination. DICTATED BY: CM KELLY DO DATE: 05/02/242049 ELECTRONICALLY SIGNED BY: CM KELLY DO DATE: 05/02/242054 ASSESSMENT: Acute on chronic normocytic anemia, POA Sepsis, 2/2 complicated UTI, POA Complicated UTI, POA Acute on chronic renal failure, POA Rule out plasma cell dyscrasia/multiple myeloma, POA Hypothyroidism new diagnosis, POA Debility/frailty, POA History of anemia requiring blood transfusions, POA Hypertension, POA Intermittent history of epistaxis, POA Hyperlipidemia, POA Type 2 diabetes mellitus, POA Mild hyponatremia, POA History of [id number] mitral valve regurgitation, POA History of moderate tricuspid regurgitation, POA PLAN: Patient will admitted to cardiac telemetry floor Broad-spectrum antibiotics with IV Zosyn, renally dose, follow up urine culture, blood culture, gentle IV hydration with NS at 50 mL/hour We will follow up CT abdomen pelvis without contrast, note made of a 4.2 cm left adrenal mass, patient may benefit from MRI of the abdomen for further evaluation, we will have oncology and endocrinology follow this patient, other differential diagnosis remains plasmacytoma Patient on previous admission was being undergoing workup for multiple myeloma, we will follow up urine and serum immunofixation study, we will also obtain beta two microglobulin and LDH We will transfuse patient 1 unit of PRBC to maintain hemoglobin greater than seven, monitor closely for signs of bleeding, we will obtain iron panel, obtain stool guaiac as well Patient to resume in her home medications including nifedipine 90 mg daily, sodium bicarb and patient will be placed on sliding scale insulin a.c. TSH noted to be at 10, given underlying rage, we will start patient on levothyroxine 50 mcg daily Patient reports having intermittent history of epistaxis, currently denies active nosebleed, we will monitor closely Monitor H and H closely tonight, All labs will be repeated in the morning We will have social work follow up with this patient, patient has been unable to keep follow up appointments due to being uninsured, we will see what patient qualifies for as outpatient DVT prophylaxis with SCDs, GI prophylaxis with Protonix Hold metformin until renal function improves Date of service: 05/02/2024 Prognosis: Guarded Plan of care was discussed with patient and daughter at bedside, Marcio Raines MD Advanced Care Planning: Which of the following were discussed: Hospice care: Yes __ No _X_ Therapeutic options: Yes _X_ No __ Advance directives: Yes _X_ No __ Other discussions: Discussed with who?: Patient Voluntary nature of this service was explained to the patient? Yes _x_ No __ Amount of time spent: 20 minutes MARCIO RAINES MD May 02, 2024 21:23
[2024-05-02 21:40] VITALS: O2SAT 97
--- NOTE | 2024-05-02 21:40 | NUR ---
Pt arrived to room 229 from Er via stretcher. Pt ambulated with some assistance to bed. Educated pt in use of call light and to now get out of bed by self, verbalized understanding. Left pt bed low, locked, rails upx2, and with call light in reach.
[2024-05-02 21:50] VITALS: BP 181/66; PULSE 67; RESP 18; TEMP 98.7
[2024-05-02 22:27] LABS: HEMATOCRIT 22.9 % (36-48)
[2024-05-02 22:50] LABS: ALBUMIN 1.7 g/dL (3.5-5.0); BILIRUBIN,DIRECT 0.1 mg/dL (0.0-0.3); BILIRUBIN,TOTAL 0.5 mg/dL (0.2-1.0)
[2024-05-02 23:09] LABS: % IRON SATURATION 31.8 % (22-44)
[2024-05-03] VITALS (9 sets, daily range): BP systolic 132–188; BP diastolic 51–98; PULSE 58–81; RESP 16–18; TEMP 97.9–98.7; O2SAT 97–98
[2024-05-03 04:33] LABS: BASOPHILS # (AUTO) 0.04 K/uL (0.00-0.20); BASOPHILS % (AUTO) 0.4 % (0.0-5.0); EOSINOPHILS # (AUTO) 0.12 K/uL (0.00-0.70); EOSINOPHILS % (AUTO) 1.1 % (0.0-8.0); HEMATOCRIT 21.5 % (36-48); IMMATURE GRANULOCYTE ABSOLUTE 0.22 K/uL (0-1); LYMPHOCYTES % (AUTO) 18.2 % (21.0-51.0); MEAN CORPUSCULAR HEMOGLOBIN 28.7 pg (27.0-33.0); MEAN CORPUSCULAR HGB CONC 31.6 g/dL (32.0-36.0); MEAN CORPUSCULAR VOLUME 90.7 fL (79-99); MONOCYTES # (AUTO) 0.8 K/uL (0.1-1.0); MONOCYTES % (AUTO) 7.6 % (3.0-13.0); NEUTROPHILS # (AUTO) 7.6 K/uL (1.8-7.7); NEUTROPHILS % (AUTO) 70.7 % (40.0-77.0); NUCLEATED RED BLOOD CELLS 0.8 % (0.0-0.19); PLATELET COUNT (AUTO) 144 K/uL (130-400); RED BLOOD CELL COUNT(AUTO) 2.37 MIL/uL (4.00-5.50); RED CELL DISTRIBUTION WIDTH 22.5 % (11.0-15.5); WHITE BLOOD COUNT (AUTO) 10.8 K/uL (4.8-10.8)
--- NOTE | 2024-05-03 04:36 | NUR ---
Was notified of pt hemoglobin change from 7.2 to 6.8. Paged second grade teacher, Lissett Dykes was notified of critical lab. Ordered 1 unit of PRBCs and to recheck H&H 1 hour post infusion, repeated back order.
[2024-05-03 04:59] LABS: ALBUMIN 1.6 g/dL (3.5-5.0); BILIRUBIN,TOTAL 0.3 mg/dL (0.2-1.0); CREATININE 2.2 mg/dL (0.5-1.0); MAGNESIUM 2.2 mg/dL (1.80-2.40); POTASSIUM 3.8 mmol/L (3.5-5.1); TOTAL PROTEIN, SERUM 10.7 g/dL (6.0-8.3)
[2024-05-03 05:57] LABS: URIC ACID 6.6 mg/dL (2.6-7.2)
[2024-05-03] MEDS: levoTHYROxine 50 MCG TABLET PO SCH (06:52)
[2024-05-03] MEDS: INSULIN humuLIN R 100 UNIT/ML 3ML SQ SCH (07:30)
[2024-05-03 07:39] LABS: INR 1.18 (0.85-1.15); PROTHROMBIN TIME 12.6 SEC (9.6-11.6)
[2024-05-03 07:41] LABS: PARTIAL THROMBOPLASTIN TIME 28.8 SEC (26.3-35.5)
--- NOTE | 2024-05-03 07:45 | NUR ---
NURSING NOTE BLOOD BANK STATED BLOOD MUST BE RAN WITH WARMER
--- NOTE | 2024-05-03 07:55 | NUR ---
NURSING COMMUNICATION ATTENDANCE OFFICER MADE AWARE OF NEED FOR BLOOD WARMER FOR TRANSFUSION
--- NOTE | 2024-05-03 09:18 | PN ---
[facility] PROGRESS NOTE Date of Service: May 03, 2024 Time of Service: 09:14 SUBJECTIVE: [ ] The patient has been seen and examined earlier this morning during my rounding, no acute events overnight, during my visit the patient is comfortably bed, BP earlier this morning 167/60, rate controlled at 64, afebrile, saturating normal on room air. Patient remains alert and oriented x3, denies dizziness, no headache, no chest pain, no shortness a breath, no nausea, no vomiting, no abdominal discomfort. She denies melena, no hematochezia, no hematemesis, no hematuria. She is waiting to be transfused 1 unit of PRBC. Results of imaging tests reviewed, discussed in detail, incidental finding of left adrenal mass discussed as well, all questions answered. Family members at bedside. REVIEW OF SYSTEMS CONSTITUTIONAL: Fatigue, malaise, asthenia, fevers and chills NEUROLOGICAL: Denies headache, amaurosis fugax, motor weakness, sensory deficit, vertigo/spinning sensation, gait abnormalities, or tremors. ENT: No hearing loss, otalgia, otorrhea, rhinitis, rhinorrhea, hoarseness, or sore throat. CARDIOVASCULAR: Denies any exertional angina, dyspnea on exertion, orthopnea, paroxysmal nocturnal dyspnea, palpitations, life-threatening arrhythmias, claudication. PULMONARY: Denies any shortness of breath, cough, phlegm/sputum, hemoptysis, pleuritic chest pain. SLEEP: Denies morning headaches, daytime somnolence or napping. Denies difficulty falling asleep, staying asleep, waking from sleep. Denies knowledge of snoring. GASTROINTESTINAL: Nausea, poor oral intake, suprapubic discomfort GENITOURINARY: Denies frequency, urgency, nocturia, hematuria or incontinence (Storage/Irritative symptoms.) Low urinary stream, straining to void, urinary intermittency or hesitancy, splitting of the voiding stream, terminal dribbling. ENDOCRINOLOGIC: Denies polyuria, polydipsia, polyphagia or heat/cold intolerances. HEMATOLOGIC: Denies thrombophilia/previous clots, or coagulopathy/bleeding disorders. ONCOLOGIC: Denies personal history of malignancy. DERMATOLOGIC: Denies rashes or pruritus. PSYCHIATRIC: Denies any suicidal or homicidal ideation. Denies hallucinations. PHYSICAL EXAM GENERAL APPEARANCE: The patient is awake, alert, appears debilitated and weak NEUROLOGICAL: Cranial nerves II-XII grossly intact. Motor is 5/5 in bilateral upper and lower extremities proximal to distal. No sensory deficits. HEENT: Face is symmetric. Pupils are equal and reactive. Extraocular movements are intact. NECK: Supple. No JVD. No thyromegaly. No submental, submandibular, pre-/postauricular, occipital or supraclavicular lymphadenopathy. CHEST: Normal chest expansion. No Telemetry. LUNGS: Absence of any rales, rhonchi or any wheezing. CARDIOVASCULAR: Regular. S1 and S2 normal. 3/6 murmur noted of the precordium ABDOMEN: Mild tenderness to palpation of the suprapubic region, no rebound or guarding noted : Deferred. No Swift. EXTREMITIES: Non-edematous and not cyanotic. No clubbing. Good capillary refill. SKIN: No skin breakdown. Vital Signs (last 8hr) Date Time Temp Pulse Resp B/P (MAP) Pulse Ox O2 Delivery O2 Flow Rate FiO2 05/03/24 08:26 98.4 64 16 167/60 97 Room Air 05/03/24 04:30 98.1 58 18 134/57 100 Room Air LABS: Laboratory: Test 05/03/24 03:36 05/02/24 22:08 05/02/24 19:09 05/02/24 14:21 Range/Units White Blood Count 10.8 4.8-10.8 K/uL Red Blood Count 2.37 L 4.00-5.50 MIL/uL Hemoglobin 6.8 *L 12.0-16.0 g/dL Hematocrit 21.5 L 36-48 % Mean Corpuscular Volume 90.7 79-99 fL Mean Corpuscular Hemoglobin 28.7 27.0-33.0 pg Mean Corpuscular Hemoglobin Concent 31.6 L 32.0-36.0 g/dL Red Cell Distribution Width 22.5 H 11.0-15.5 % Platelet Count 144 130-400 K/uL Mean Platelet Volume 9.5 7.5-10.5 fL Immature Granulocyte % (Auto) 2.0 H 0-1 % Neutrophils (%) (Auto) 70.7 40.0-77.0 % Lymphocytes (%) (Auto) 18.2 L 21.0-51.0 % Monocytes (%) (Auto) 7.6 3.0-13.0 % Eosinophils (%) (Auto) 1.1 0.0-8.0 % Basophils (%) (Auto) 0.4 0.0-5.0 % Neutrophils # (Auto) 7.6 1.8-7.7 K/uL Lymphocytes # (Auto) 2.0 1.0-4.8 K/uL Monocytes # (Auto) 0.8 0.1-1.0 K/uL Eosinophils # (Auto) 0.12 0.00-0.70 K/uL Basophils # (Auto) 0.04 0.00-0.20 K/uL Absolute Immature Granulocyte (auto 0.22 0-1 K/uL Nucleated Red Blood Cells 0.8 H 0.0-0.19 % Prothrombin Time 12.6 H 9.6-11.6 SEC Prothromb Time International Ratio 1.18 H 0.85-1.15 Activated Partial Thromboplast Time 28.8 26.3-35.5 SEC Sodium Level 137 136-145 mmol/L Potassium Level 3.8 3.5-5.1 mmol/L Chloride Level 107 101-111 mmol/L Carbon Dioxide Level 22 21-32 mmol/L Blood Urea Nitrogen 30 H 7-18 mg/dL Creatinine 2.2 H 0.5-1.0 mg/dL Glomerular Filtration Rate Calc 21 >90 mL/min Random Glucose 91 70-105 mg/dL Uric Acid 6.6 2.6-7.2 mg/dL Total Calcium 9.0 8.5-10.1 mg/dL Phosphorus Level 4.0 2.5-4.9 mg/dL Magnesium Level 2.20 1.80-2.40 mg/dL Total Bilirubin 0.3 # 0.2-1.0 mg/dL Aspartate Amino Transf (AST/SGOT) 12 10-37 U/L Alanine Aminotransferase (ALT/SGPT) 10 L 12-78 U/L Alkaline Phosphatase 47 L 50-136 U/L Total Protein 10.7 H 6.0-8.3 g/dL Albumin 1.6 L 3.5-5.0 g/dL Erythrocyte Sedimentation Rate > 150 H 0-30 MM/HR Lactic Acid Level 1.4 0.8-2.5 mmol/L Iron Level 57 50-170 mcg/dL Total Iron Binding Capacity 179 L 250-450 mcg/dL Percent Iron Saturation 31.8 22-44 % Direct Bilirubin 0.1 0.0-0.3 mg/dL Urine Color COLORLESS YELLOW Urine Appearance CLEAR CLEAR Urine pH 5.0 5.0-8.0 Urine Specific [place] 1.006 1.001-1.031 Urine Protein 20 H NEGATIVE mg/dL Urine Glucose (UA) NEGATIVE NEGATIVE mg/dL Urine Ketones NEGATIVE NEGATIVE mg/dL Urine Occult Blood SMALL H NEGATIVE Urine Nitrate 1+ H NEGATIVE Urine Bilirubin NEGATIVE NEGATIVE mg/dL Urine Urobilinogen 0.2 0.2-1.0 mg/dL Urine Leukocyte Esterase NEGATIVE NEGATIVE Sergey/uL Urine RBC 0-1 0-1 /HPF Urine WBC 2-5 H 0-1 /HPF Urine Squamous Epithelial Cells RARE 0-2 /HPF Urine Bacteria MOD None Seen /HPF Red Blood Cell Morphology See comments Hemoglobin A1c 6.4 H 4.0-6.0 % Estimated Average Glucose (eAG) 137 H 70-126 mg/dL Ferritin 282 H 15-150 ng/mL Lactate Dehydrogenase 197 81-234 U/L C-Reactive Protein, Quantitative 38.60 H 0.5-3.0 mg/L Vitamin B12 Level 712 193-986 pg/mL Folic Acid (LAB) 13.70 2-20 ng/mL Procalcitonin 0.26 0.05-0.5 ng/mL Thyroid Stimulating Hormone (TSH) 10.40 #H 0.36-3.74 uIU/mL Free Thyroxine (T4) Direct 0.80 0.76-1.46 ng/dL Free Triiodothyronine (T3) pg/mL 1.70 L 2.18-3.98 pg/mL Influenza Type A Antigen Negative For Type A NEGATIVE Influenza Type B Antigen Negative For Type B NEGATIVE SARS-CoV-2 Antigen (Rapid) PRESUMPTIVE NEGATIVE NEGATIVE Group A Streptococcus Rapid negative NEGATIVE Current Medications Medications (Trade) Dose Ordered Sig/Mare Route PRN Reason Start Time Stop Time Status Last Admin Dose Admin Acetaminophen (TYLenol 500MG TAB) 500 mg Q6H PRN PO MILD PAIN (1-3) 05/02/24 18:00 06/01/24 17:59 Hydralazine HCl (APRESOLine 20MG INJ) 10 mg Q6H PRN IV ADMINISTER FOR SBP > 160 05/02/24 18:00 06/01/24 17:59 Insulin Human Regular (humuLIN R 100 UNIT/ML 3ML) INSULIN SLIDING SCAL... ACHS SQ 05/03/24 07:30 06/02/24 07:29 Levothyroxine Sodium (SYNTHroid 50MCG TAB) 50 mcg DAILY@0630 PO 05/03/24 06:30 06/02/24 06:29 05/03/24 06:52 50 MCG Nifedipine (adALAT 30MG) 30 mg ONCE PO 05/02/24 21:00 05/02/24 23:59 DC 05/02/24 20:49 30 MG Nifedipine (adALAT 30MG) 90 mg DAILY PO 05/03/24 09:00 06/02/24 08:59 Ondansetron HCl (zoFRAN 4MG INJ) 4 mg Q6H PRN IVP NAUSEA/VOMITING 05/02/24 18:00 06/01/24 17:59 Pantoprazole Sodium (PROTonix 40MG INJ) 40 mg Q24H IVP 05/02/24 18:00 06/01/24 17:59 05/02/24 18:33 40 MG Piperacillin Sod/ Tazobactam Sod (Zosyn 3.375gm+NS 50ml) 3.375 gm Q12H IVPB 05/02/24 18:30 05/02/24 23:59 DC 05/02/24 20:49 3.375 GM Piperacillin Sod/ Tazobactam Sod (Zosyn 3.375gm+NS 50ml) 3.375 gm ZOSY12 IVPB 05/02/24 21:00 05/02/24 18:02 DC Piperacillin Sod/ Tazobactam Sod (Zosyn 3.375gm+NS 50ml) 3.375 gm ZOSY12 IVPB 05/03/24 09:00 05/13/24 08:59 Sodium Bicarbonate (Sodium Bicarbonate) 650 mg BID PO 05/02/24 21:00 06/01/24 20:59 05/02/24 20:49 650 MG Sodium Chloride 1,000 ml @ 50 mls/hr Q20H IV 05/02/24 18:00 05/03/24 09:00 DC 05/02/24 18:34 50 MLS/HR DIAGNOSTICS / RADIOLOGY: [ ] CT ABDOMEN/PELVIS W/O CONTRAST CLINICAL HISTORY: sepsis, suprapubic abdominal pain, hx of RLL mass COMPARISON: 11/27/2023 TECHNIQUE: Sequential axial images of abdomen and pelvis without contrast and with sagittal and coronal reconstructions. CT was performed with one or more of the following dose reduction techniques: automated exposure control, adjustment of the mA and/or kV according to patient size, or use of iterative reconstruction technique FINDINGS: Lung bases are clear. There is cardiomegaly with advanced mitral valve calcification. The liver and spleen are unremarkable. The gallbladder pancreas and right adrenal gland are unremarkable. Note is made of a 4.2 cm left adrenal mass. The kidneys and bladder are unremarkable. The uterus is within normal limits. There is moderate amount of fecal material in the colon with no identified bowel obstruction. There is no bulky abdominal or retroperitoneal lymphadenopathy. There is no free or free fluid. Note is made of mild calcified atherosclerotic vascular disease of the aorta without aneurysmal dilatation. There is accentuation of the normal lumbar lordosis. IMPRESSION: Constipation. Left adrenal mass that was demonstrated on the prior examination. ASSESSMENT: Acute on chronic normocytic anemia, POA Sepsis, 2/2 complicated UTI, POA Complicated UTI, POA Acute on chronic renal failure, POA Rule out plasma cell dyscrasia/multiple myeloma, POA Hypothyroidism new diagnosis, POA Debility/frailty, POA History of anemia requiring blood transfusions, POA Hypertension, POA Intermittent history of epistaxis, POA Hyperlipidemia, POA Type 2 diabetes mellitus, POA Mild hyponatremia, POA History of [id number] mitral valve regurgitation, POA History of moderate tricuspid regurgitation, POA Left adrenal mass, POA PLAN: The patient remains admitted to the progressive care unit Continue the patient on broad-spectrum IV antibiotics CT of the abdomen and pelvis without contrast reviewed, patient with left adrenal mass measuring 4.2 cm, discussed the findings with the patient and the family at the bedside. Oncology and endocrinology consultation requested, we will follow recommendations. Need to exclude the possibility of plasmacytoma. Patient to get 1 unit of PRBC transfused today. Iron level of 57. Follow stool occult blood Continue to replace electrolytes IV per protocol GI and DVT prophylaxis Plan of action discussed in detail with the patient and the family at bedside, all questions answered, agreed and understood the information provided. Total PCU time spent greater than 30 minutes. KARIME GARCIA MD May 03, 2024 09:18
[2024-05-03] MEDS: ZOSYN 3.375GM +NS 50ML IVPB SCH (09:33)
[2024-05-03] MEDS: nifeDIPine ER 30 MG TAB PO SCH (09:44)
--- NOTE | 2024-05-03 10:02 | NUR ---
DCP: HOME Pt is un documented and lives with daughters Ashley Mcmahon [phone] and Melina Hutton [phone]. Pt does not qualify for benefits and daughter has applied for [facility] Indigent Program and pending decision. Pt is seen at [facility] for medical care and meds. Pt uses a cane as needed, pt reports she is independent of ADLS. Per daughter, pt will return home with her at tx Addendum: 05/03/24 at 1003 by JERRY SALTER SS Amended: Links added.
[2024-05-03] MEDS: LoSARTan 50 MG TABLET PO SCH (10:07)
--- NOTE | 2024-05-03 10:22 | NUR ---
[facility] CALLED IN
--- NOTE | 2024-05-03 12:10 | HMCIMG ---
HIP UNILAT 2-3VW LEFT HISTORY: Nontrauma left lateral anterior hip COMPARISON: None TECHNIQUE: 2 images of left hip were obtained. FINDINGS: There is no acute displaced fracture or dislocation. Left hip joint space narrowing is seen. Nondisplaced fracture cannot be completely excluded. Fecal material is seen in the colon. Degenerative changes are seen. IMPRESSION: 1. Findings as described above.
--- NOTE | 2024-05-03 13:10 | NUR ---
NURSING NOTE SPOKE WITH CHRIS FROM IR, AWARE OF BONE MARROW BIOPSY ORDER FOR TOMORROW WILL ADD TO LIST AND NOTIFY RADIOLOGIST
[2024-05-03] MEDS: dexaMETHasone 10MG/ML 1ML VIAL 20 MG in 0.9%NACL 50ML 50 ML IV SCH (13:25)
[2024-05-03] MEDS ORDERED: dexaMETHasone SOD PHOSPHATE 4 MG/ML 1ML VIAL IV SCH (13:30)
--- NOTE | 2024-05-03 13:33 | CONS ---
CONSULT NOTE: 83-year-old female with history of hypertension, hyperlipidemia, stage 3 chronic kidney disease, type 2 diabetes mellitus, history of recurrent anemia requiring blood transfusions, with concerns for plasma cell dyscrasia/multiple myeloma who presented to the ER for further evaluation of generalized fatigue, malaise, fevers, chills and poor oral intake. Symptoms started last night and patient reports having asthenia, malaise and suprapubic discomfort. Denies any signif icant cough otherwise. Patient denies any syncope. Daughter has noticed that patient has been more fatigued and tired as well. Oral intake has been poor. Patient was hospitalized on 11/2023 with acute on chronic anemia requiring blood transfusion, and was undergoing further workup for multiple myeloma/plasma cell dyscrasia. I followed this patient to previously and was suspected of plasma cell dyscrasia. 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 Daughter states that patient has been unable to follow up with Nephrology or oncology as outpatient since last discharge. On presentation to the hospital, patient was noted to be febrile with T-max of 102.0 F, heart rate of 80, blood pressure of 159/57 saturating 97% on room air. Chest x-ray showed cardiomegaly with no significant infiltrates. [place] [address], hemoglobin of 6.2, hematocrit of 20.2, platelet count of 332020. CMP remarkable for sodium of 135, potassium 4.5, CO2 of 21, BUN of 33, creatinine 2.3, TSH of 10.4. Patient will be admitted under hospitalist service further management of severe anemia, sepsis with concerns for UTI. Patient will receive broad-spectrum antibiotics and we will see how patient progresses in the next 2-3 days. REVIEW OF SYSTEMS CONSTITUTIONAL: Fatigue, malaise, asthenia, fevers and chills NEUROLOGICAL: Denies headache, amaurosis fugax, motor weakness, sensory deficit, vertigo/spinning sensation, gait abnormalities, or tremors. ENT: No hearing loss, otalgia, otorrhea, rhinitis, rhinorrhea, hoarseness, or sore throat. CARDIOVASCULAR: Denies any exertional angina, dyspnea on exertion, orthopnea, paroxysmal nocturnal dyspnea, palpitations, life-threatening arrhythmias, claudication. PULMONARY: Denies any shortness of breath, cough, phlegm/sputum, hemoptysis, pleuritic chest pain. SLEEP: Denies morning headaches, daytime somnolence or napping. Denies difficulty falling asleep, staying asleep, waking from sleep. Denies knowledge of snoring. GASTROINTESTINAL: Nausea, poor oral intake, suprapubic discomfort GENITOURINARY: Denies frequency, urgency, nocturia, hematuria or incontinence (Storage/Irritative symptoms.) Low urinary stream, straining to void, urinary intermittency or hesitancy, splitting of the voiding stream, terminal dribbling. ENDOCRINOLOGIC: Denies polyuria, polydipsia, polyphagia or heat/cold intolerances. HEMATOLOGIC: Denies thrombophilia/previous clots, or coagulopathy/bleeding disorders. ONCOLOGIC: Denies personal history of malignancy. DERMATOLOGIC: Denies rashes or pruritus. PSYCHIATRIC: Denies any suicidal or homicidal ideation. Denies hallucinations. PAST MEDICAL HISTORY: Anemia, hypertension, hyperlipidemia, type 2 diabetes mellitus, chronic kidney disease stage 3, patient on last admission on 12/07 was being worked up for multiple myeloma/plasma cell dyscrasia PAST SURGICAL HISTORY: History of cataract surgery PAST SOCIAL HISTORY: Lives with daughter at home, independent with ADLs FAMILY HISTORY: Denies family history of blood disorders Allergies: Patient denies known drug allergies. Home medications: Metformin 500 mg daily, nifedipine 90 mg daily, Lyrica 25 mg t.i.d. p.r.n., sodium bicarbonate 650 mg b.i.d. Coded Allergies: No Known Drug Allergies (Unverified Allergy, Unknown, 12/30/21) PHYSICAL EXAM GENERAL APPEARANCE: The patient is awake, alert, appears debilitated and weak NEUROLOGICAL: Cranial nerves II-XII grossly intact. Motor is 5/5 in bilateral upper and lower extremities proximal to distal. No sensory deficits. HEENT: Face is symmetric. Pupils are equal and reactive. Extraocular movements are intact. NECK: Supple. No JVD. No thyromegaly. No submental, submandibular, pre- /postauricular, occipital or supraclavicular lymphadenopathy. CHEST: Normal chest expansion. No Telemetry. LUNGS: Absence of any rales, rhonchi or any wheezing. CARDIOVASCULAR: Regular. S1 and S2 normal. 3/6 murmur noted of the precordium ABDOMEN: Mild tenderness to palpation of the suprapubic region, no rebound or guarding noted : Deferred. No Swift. EXTREMITIES: Non-edematous and not cyanotic. No clubbing. Good capillary refill. SKIN: No skin breakdown. Assessment 1. Severe anemia 2. 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 SPEP, UPEP and free light chain was ordered from pr evious admission 3. Thrombocytopenia 4. Sepsis 5. Acute on chronic renal failure 6. Hypothyroidism 7. Hypertension 8. Diabetes mellitus Plan 1. Peripheral blood smear showed red blood cells to be normocytic normochromic. There was no fragment cell or schistocyte. There is no teardrop cell. There is no rouleaux phenomena. There is no pelger-Huet cell. White blood cell with no blasts. Platelet was normal in morphology and count. 2. There was hypersegmented neutrophils. This patient to be started on folic acid 1 mg p.o. daily and vitamin B12 1000 mcg p.o. daily. 3. This patient have rouleaux phenomena. SPEP, UPEP and free light chain was ordered which was positive for IgG lambda light chain. 4. This patient will need IR consultation for bone marrow biopsy 5. This patient will need direct Elio test to be done 6. This patient to be started on dexamethasone 20 mg IV daily 7. If this patient is stable she could be discharged to follow-up with me as outpatient. 8. There was family member in the room. I have long discussion with the patient and family member regarding the plan of care. I answer all question and concern and I spent more than 35 minutes. LAB RESULTS 05/03/24 11:33: Whole Blood Glucose 110 05/03/24 03:36: White Blood Count 10.8, Red Blood Count 2.37L, Hemoglobin 6.8*L, Hematocrit 21.5L, Mean Corpuscular Volume 90.7, Mean Corpuscular Hemoglobin 28.7, Mean Corpuscular Hemoglobin Concent 31.6L, Red Cell Distribution Width 22.5H, Platelet Count 144, Mean Platelet Volume 9.5, Immature Granulocyte % (Auto) 2.0H, Neutrophils (%) (Auto) 70.7, Lymphocytes (%) (Auto) 18.2L, Monocytes (%) (Auto) 7.6, Eosinophils (%) (Auto) 1.1, Basophils (%) (Auto) 0.4, Neutrophils # (Auto) 7.6, Lymphocytes # (Auto) 2.0, Monocytes # (Auto) 0.8, Eosinophils # (Auto) 0.12, Basophils # (Auto) 0.04, Absolute Immature Granulocyte (auto 0.22, Nucleated Red Blood Cells 0.8H, Prothrombin Time 12.6H, Prothromb Time International Ratio 1.18H, Activated Partial Thromboplast Time 28.8, Sodium Level 137, Potassium Level 3.8, Chloride Level 107, Carbon Dioxide Level 22, Blood Urea Nitrogen 30H, Creatinine 2.2H, Glomerular Filtration Rate Calc 21, Random Glucose 91, Uric Acid 6.6, Total Calcium 9.0, Phosphorus Level 4.0, Magnesium Level 2.20, Total Bilirubin 0.3#, Aspartate Amino Transf (AST/SGOT) 12, Alanine Aminotransferase (ALT/SGPT) 10L, Alkaline Phosphatase 47L, Total Protein 10.7H, Albumin 1.6L 05/02/24 22:08: Erythrocyte Sedimentation Rate > 150H, Lactic Acid Level 1.4, Iron Level 57, Total Iron Binding Capacity 179L, Percent Iron Saturation 31.8, Direct Bilirubin 0.1 05/02/24 19:09: Urine Color COLORLESS, Urine Appearance CLEAR, Urine pH 5.0, Urine Specific [place] 1.006, Urine Protein 20H, Urine Glucose (UA) NEGATIVE, Urine Ketones NEGATIVE, Urine Occult Blood SMALLH, Urine Nitrate 1+H, Urine Bilirubin NEGATIVE, Urine Urobilinogen 0.2, Urine Leukocyte Esterase NEGATIVE, Urine RBC 0-1, Urine WBC 2-5H, Urine Squamous Epithelial Cells RARE, Urine Bacteria MOD 05/02/24 14:21: Red Blood Cell Morphology See comments, Hemoglobin A1c 6.4H, Estimated Average Glucose (eAG) 137H, Ferritin 282H, Lactate Dehydrogenase 197, C-Reactive Protein, Quantitative 38.60H, Vitamin B12 Level 712, Folic Acid (LAB) 13.70, Procalcitonin 0.26, Thyroid Stimulating Hormone (TSH) 10.40#H, Free Thyroxine (T4) Direct 0.80, Free Triiodothyronine (T3) pg/mL 1.70L, Influenza Type A Antigen Negative For Type A, Influenza Type B Antigen Negative For Type B, SARS-CoV-2 Antigen (Rapid) PRESUMPTIVE NEGATIVE, Group A Streptococcus Rapid negative Laboratory Tests Test 05/02/24 14:21 05/02/24 19:09 05/02/24 22:08 05/03/24 03:36 White Blood Count 10.0 K/uL (4.8-10.8) 10.8 K/uL (4.8-10.8) Red Blood Count 2.10 MIL/uL (4.00-5.50) L 2.37 MIL/uL (4.00-5.50) L Hemoglobin 6.2 g/dL (12.0-16.0) *L 7.2 g/dL (12.0-16.0) L 6.8 g/dL (12.0-16.0) *L Hematocrit 20.2 % (36-48) *L 22.9 % (36-48) L 21.5 % (36-48) L Mean Corpuscular Volume 96.2 fL (79-99) 90.7 fL (79-99) Mean Corpuscular Hemoglobin 29.5 pg (27.0-33.0) 28.7 pg (27.0-33.0) Mean Corpuscular Hemoglobin Concent 30.7 g/dL (32.0-36.0) L 31.6 g/dL (32.0-36.0) L Red Cell Distribution Width 17.0 % (11.0-15.5) H 22.5 % (11.0-15.5) H Platelet Count 165 K/uL (130-400) 144 K/uL (130-400) Mean Platelet Volume 9.5 fL (7.5-10.5) 9.5 fL (7.5-10.5) Immature Granulocyte % (Auto) 2.5 % (0-1) H 2.0 % (0-1) H Neutrophils (%) (Auto) 76.4 % (40.0-77.0) 70.7 % (40.0-77.0) Lymphocytes (%) (Auto) 11.3 % (21.0-51.0) L 18.2 % (21.0-51.0) L Monocytes (%) (Auto) 8.0 % (3.0-13.0) 7.6 % (3.0-13.0) Eosinophils (%) (Auto) 1.3 % (0.0-8.0) 1.1 % (0.0-8.0) Basophils (%) (Auto) 0.5 % (0.0-5.0) 0.4 % (0.0-5.0) Neutrophils # (Auto) 7.7 K/uL (1.8-7.7) 7.6 K/uL (1.8-7.7) Lymphocytes # (Auto) 1.1 K/uL (1.0-4.8) 2.0 K/uL (1.0-4.8) Monocytes # (Auto) 0.8 K/uL (0.1-1.0) 0.8 K/uL (0.1-1.0) Eosinophils # (Auto) 0.13 K/uL (0.00-0.70) 0.12 K/uL (0.00-0.70) Basophils # (Auto) 0.05 K/uL (0.00-0.20) 0.04 K/uL (0.00-0.20) Absolute Immature Granulocyte (auto 0.25 K/uL (0-1) 0.22 K/uL (0-1) Nucleated Red Blood Cells 1.4 % (0.0-0.19) H 0.8 % (0.0-0.19) H Red Blood Cell Morphology See comments Sodium Level 135 mmol/L (136-145) L 137 mmol/L (136-145) Potassium Level 4.5 mmol/L (3.5-5.1) 3.8 mmol/L (3.5-5.1) Chloride Level 104 mmol/L (101-111) 107 mmol/L (101-111) Carbon Dioxide Level 21 mmol/L (21-32) 22 mmol/L (21-32) Blood Urea Nitrogen 33 mg/dL (7-18) H 30 mg/dL (7-18) H Creatinine 2.3 mg/dL (0.5-1.0) H 2.2 mg/dL (0.5-1.0) H Glomerular Filtration Rate Calc 20 mL/min (>90) 21 mL/min (>90) Random Glucose 181 mg/dL (70-105) H 91 mg/dL (70-105) Hemoglobin A1c 6.4 % (4.0-6.0) H Estimated Average Glucose (eAG) 137 mg/dL (70-126) H Lactic Acid Level 2.2 mmol/L (0.8-2.5) 1.4 mmol/L (0.8-2.5) Total Calcium 8.7 mg/dL (8.5-10.1) 9.0 mg/dL (8.5-10.1) Ferritin 282 ng/mL (15-150) H Lactate Dehydrogenase 197 U/L (81-234) C-Reactive Protein, Quantitative 38.60 mg/L (0.5-3.0) H Vitamin B12 Level 712 pg/mL (193-986) Folic Acid (LAB) 13.70 ng/mL (2-20) Procalcitonin 0.26 ng/mL (0.05-0.5) Thyroid Stimulating Hormone (TSH) 10.40 uIU/mL (0.36-3.74) #H Free Thyroxine (T4) Direct 0.80 ng/dL (0.76-1.46) Free Triiodothyronine (T3) pg/mL 1.70 pg/mL (2.18-3.98) L Influenza Type A Antigen Negative For Type A Influenza Type B Antigen Negative For Type B SARS-CoV-2 Antigen (Rapid) PRESUMPTIVE NEGATIVE Group A Streptococcus Rapid negative (NEGATIVE) Urine Color COLORLESS (YELLOW) Urine Appearance CLEAR (CLEAR) Urine pH 5.0 (5.0-8.0) Urine Specific [place] 1.006 (1.001-1.031) Urine Protein 20 mg/dL (NEGATIVE) H Urine Glucose (UA) NEGATIVE mg/dL (NEGATIVE) Urine Ketones NEGATIVE mg/dL (NEGATIVE) Urine Occult Blood SMALL (NEGATIVE) H Urine Nitrate 1+ (NEGATIVE) H Urine Bilirubin NEGATIVE mg/dL (NEGATIVE) Urine Urobilinogen 0.2 mg/dL (0.2-1.0) Urine Leukocyte Esterase NEGATIVE Sergey/uL Urine RBC 0-1 /HPF (0-1) Urine WBC 2-5 /HPF (0-1) H Urine Squamous Epithelial Cells RARE /HPF (0-2) Urine Bacteria MOD /HPF (None Seen) Erythrocyte Sedimentation Rate > 150 MM/HR (0-30) H Iron Level 57 mcg/dL (50-170) Total Iron Binding Capacity 179 mcg/dL (250-450) L Percent Iron Saturation 31.8 % (22-44) Total Bilirubin 0.5 mg/dL (0.2-1.0) 0.3 mg/dL (0.2-1.0) # Direct Bilirubin 0.1 mg/dL (0.0-0.3) Aspartate Amino Transf (AST/SGOT) 14 U/L (10-37) 12 U/L (10-37) Alanine Aminotransferase (ALT/SGPT) 12 U/L (12-78) 10 U/L (12-78) L Alkaline Phosphatase 48 U/L (50-136) L 47 U/L (50-136) L Total Protein 11.0 g/dL (6.0-8.3) H 10.7 g/dL (6.0-8.3) H Albumin 1.7 g/dL (3.5-5.0) L 1.6 g/dL (3.5-5.0) L Prothrombin Time 12.6 SEC (9.6-11.6) H Prothromb Time International Ratio 1.18 (0.85-1.15) H Activated Partial Thromboplast Time 28.8 SEC (26.3-35.5) Uric Acid 6.6 mg/dL (2.6-7.2) Phosphorus Level 4.0 mg/dL (2.5-4.9) Magnesium Level 2.20 mg/dL (1.80-2.40) Test 05/03/24 11:33 Whole Blood Glucose 110 MG/DL (70-110) SOFÍA PALACIO MD May 03, 2024 13:33
--- NOTE | 2024-05-03 13:48 | NUR ---
NURSING NOTE ALL JESSICA REMOVED.
--- NOTE | 2024-05-03 14:34 | PN ---
NEPHROLOGY PROGRESS NOTE Date/Time Patient Seen: May 03, 2024 SUBJECTIVE: This is an 83-year-old female with a past medical history of hypertension, hyperlipidemia, chronic kidney disease, diabetes mellitus type 2, recurrent anemia She presented to the emergency room for further evaluation of generalized fatigue, malaise, fever, chills and poor oral intake. She has been followed by Dr. 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 She is pending a bone marrow biopsy today. She has been started on dexamethasone. We are consulted for renal failure. Renal function remains stable Electrolytes are stable. She was seen in the medical floor, in no acute distress No family at the bedside Prognosis remains guarded REVIEW OF SYSTEMS: GENERAL: Positive for generalized weakness NEUROLOGIC: Negative for any blurry vision, blind spots, double vision, facial asymmetry, dysphagia, dysarthria, hemiparesis, hemisensory deficits, vertigo, ataxia. HEENT: Negative for any head trauma, neck trauma, neck stiffness, photophobia, phonophobia, sinusitis, rhinitis. CARDIAC: Negative for any chest pain, dyspnea on exertion, paroxysmal nocturnal dyspnea, peripheral edema. PULMONARY: Negative for any shortness of breath, wheezing, COPD, or TB exposure. GASTROINTESTINAL: Negative for any abdominal pain, nausea, vomiting, bright red blood per rectum, melena. GENITOURINARY: Negative for any dysuria, hematuria, incontinence. INTEGUMENTARY: Negative for any rashes, cuts, insect bites. RHEUMATOLOGIC: Negative for any joint pains, photosensitive rashes, history of vasculitis or kidney problems. HEMATOLOGIC: Negative for any abnormal bruising, frequent infections or bleeding. Vital Signs (last 8hr) Date Time Temp Pulse Resp B/P (MAP) Pulse Ox O2 Delivery O2 Flow Rate FiO2 05/03/24 11:47 98.2 62 16 152/51 97 Room Air 05/03/24 08:26 98.4 64 16 167/60 97 Room Air 05/03/24 08:00 97 Room Air* 0 21 PHYSICAL EXAM: GENERAL: Alert and oriented x 3. No acute distress. Well-nourished. EYES: EOMI. Anicteric. HENT: Moist mucous membranes. No scleral icterus. No cervical lymphadenopathy. LUNGS: Clear to auscultation bilaterally. No accessory muscle use. CARDIOVASCULAR: Regular rate and rhythm. No murmur. No JVD. ABDOMEN: Soft, non-tender and non-distended. No palpable masses. EXTREMITIES: No edema. Non-tender. SKIN: No rashes or lesions. Warm. NEUROLOGIC: No focal neurological deficits. CN II-XII grossly intact, but not individually tested. PSYCHIATRIC: Cooperative. Appropriate mood and affect. Current Medications Medications (Trade) Dose Ordered Sig/Mare Route PRN Reason Start Time Stop Time Status Last Admin Dose Admin Acetaminophen (TYLenol 500MG TAB) 500 mg Q6H PRN PO MILD PAIN (1-3) 05/02/24 18:00 06/01/24 17:59 Dexamethasone Sodium Phosphate (dexaMETHasone 4MG/ML 1ML VIAL) 20 mg Q24H IV 05/03/24 13:30 05/03/24 13:09 DC Dexamethasone Sodium Phosphate 20 mg/Sodium Chloride 50 ml @ 100 mls/hr Q24H IV 05/03/24 13:30 06/02/24 13:29 05/03/24 13:25 100 MLS/HR Hydralazine HCl (APRESOLine 20MG INJ) 10 mg Q6H PRN IV ADMINISTER FOR SBP > 160 05/02/24 18:00 06/01/24 17:59 Insulin Human Regular (humuLIN R 100 UNIT/ML 3ML) INSULIN SLIDING SCAL... ACHS SQ 05/03/24 07:30 06/02/24 07:29 Levothyroxine Sodium (SYNTHroid 50MCG TAB) 50 mcg DAILY@0630 PO 05/03/24 06:30 06/02/24 06:29 05/03/24 06:52 50 MCG Losartan Potassium (CozAAR 50 mg TAB) 50 mg BID PO 05/03/24 09:30 06/02/24 09:29 05/03/24 10:07 50 MG Losartan Potassium (CozAAR 50 mg TAB) 50 mg BID PO 05/03/24 21:00 05/03/24 09:32 DC Nifedipine (adALAT 30MG) 30 mg ONCE PO 05/02/24 21:00 05/02/24 23:59 DC 05/02/24 20:49 30 MG Nifedipine (adALAT 30MG) 90 mg DAILY PO 05/03/24 09:00 06/02/24 08:59 05/03/24 09:44 90 MG Ondansetron HCl (zoFRAN 4MG INJ) 4 mg Q6H PRN IVP NAUSEA/VOMITING 05/02/24 18:00 06/01/24 17:59 Pantoprazole Sodium (PROTonix 40MG INJ) 40 mg Q24H IVP 05/02/24 18:00 06/01/24 17:59 05/02/24 18:33 40 MG Piperacillin Sod/ Tazobactam Sod (Zosyn 3.375gm+NS 50ml) 3.375 gm Q12H IVPB 05/02/24 18:30 05/02/24 23:59 DC 05/02/24 20:49 3.375 GM Piperacillin Sod/ Tazobactam Sod (Zosyn 3.375gm+NS 50ml) 3.375 gm ZOSY12 IVPB 05/02/24 21:00 05/02/24 18:02 DC Piperacillin Sod/ Tazobactam Sod (Zosyn 3.375gm+NS 50ml) 3.375 gm ZOSY12 IVPB 05/03/24 09:00 05/13/24 08:59 05/03/24 09:33 3.375 GM Sodium Bicarbonate (Sodium Bicarbonate) 650 mg BID PO 05/02/24 21:00 06/01/24 20:59 05/03/24 09:33 650 MG Sodium Chloride 1,000 ml @ 50 mls/hr Q20H IV 05/02/24 18:00 05/03/24 09:00 DC 05/02/24 18:34 50 MLS/HR LABORATORY: [ ] Hematology Labs: Test 05/03/24 03:36 05/02/24 22:08 05/02/24 14:21 Range/Units White Blood Count 10.8 4.8-10.8 K/uL Red Blood Count 2.37 L 4.00-5.50 MIL/uL Hemoglobin 6.8 *L 12.0-16.0 g/dL Hematocrit 21.5 L 36-48 % Mean Corpuscular Volume 90.7 79-99 fL Mean Corpuscular Hemoglobin 28.7 27.0-33.0 pg Mean Corpuscular Hemoglobin Concent 31.6 L 32.0-36.0 g/dL Red Cell Distribution Width 22.5 H 11.0-15.5 % Platelet Count 144 130-400 K/uL Mean Platelet Volume 9.5 7.5-10.5 fL Immature Granulocyte % (Auto) 2.0 H 0-1 % Neutrophils (%) (Auto) 70.7 40.0-77.0 % Lymphocytes (%) (Auto) 18.2 L 21.0-51.0 % Monocytes (%) (Auto) 7.6 3.0-13.0 % Eosinophils (%) (Auto) 1.1 0.0-8.0 % Basophils (%) (Auto) 0.4 0.0-5.0 % Neutrophils # (Auto) 7.6 1.8-7.7 K/uL Lymphocytes # (Auto) 2.0 1.0-4.8 K/uL Monocytes # (Auto) 0.8 0.1-1.0 K/uL Eosinophils # (Auto) 0.12 0.00-0.70 K/uL Basophils # (Auto) 0.04 0.00-0.20 K/uL Absolute Immature Granulocyte (auto 0.22 0-1 K/uL Nucleated Red Blood Cells 0.8 H 0.0-0.19 % Erythrocyte Sedimentation Rate > 150 H 0-30 MM/HR Red Blood Cell Morphology See comments Chemistry Labs: Test 05/03/24 11:33 05/03/24 03:36 05/02/24 22:08 05/02/24 14:21 Range/Units Whole Blood Glucose 110 70-110 MG/DL Sodium Level 137 136-145 mmol/L Potassium Level 3.8 3.5-5.1 mmol/L Chloride Level 107 101-111 mmol/L Carbon Dioxide Level 22 21-32 mmol/L Blood Urea Nitrogen 30 H 7-18 mg/dL Creatinine 2.2 H 0.5-1.0 mg/dL Glomerular Filtration Rate Calc 21 >90 mL/min Random Glucose 91 70-105 mg/dL Uric Acid 6.6 2.6-7.2 mg/dL Total Calcium 9.0 8.5-10.1 mg/dL Phosphorus Level 4.0 2.5-4.9 mg/dL Magnesium Level 2.20 1.80-2.40 mg/dL Total Bilirubin 0.3 # 0.2-1.0 mg/dL Aspartate Amino Transf (AST/SGOT) 12 10-37 U/L Alanine Aminotransferase (ALT/SGPT) 10 L 12-78 U/L Alkaline Phosphatase 47 L 50-136 U/L Total Protein 10.7 H 6.0-8.3 g/dL Albumin 1.6 L 3.5-5.0 g/dL Lactic Acid Level 1.4 0.8-2.5 mmol/L Iron Level 57 50-170 mcg/dL Total Iron Binding Capacity 179 L 250-450 mcg/dL Percent Iron Saturation 31.8 22-44 % Direct Bilirubin 0.1 0.0-0.3 mg/dL Hemoglobin A1c 6.4 H 4.0-6.0 % Estimated Average Glucose (eAG) 137 H 70-126 mg/dL Ferritin 282 H 15-150 ng/mL Lactate Dehydrogenase 197 81-234 U/L C-Reactive Protein, Quantitative 38.60 H 0.5-3.0 mg/L Vitamin B12 Level 712 193-986 pg/mL Folic Acid (LAB) 13.70 2-20 ng/mL Procalcitonin 0.26 0.05-0.5 ng/mL Thyroid Stimulating Hormone (TSH) 10.40 #H 0.36-3.74 uIU/mL Free Thyroxine (T4) Direct 0.80 0.76-1.46 ng/dL Free Triiodothyronine (T3) pg/mL 1.70 L 2.18-3.98 pg/mL Coagulation Labs: Test 05/03/24 03:36 Range/Units Prothrombin Time 12.6 H 9.6-11.6 SEC Prothromb Time International Ratio 1.18 H 0.85-1.15 Activated Partial Thromboplast Time 28.8 26.3-35.5 SEC DIAGNOSTICS / RADIOLOGY: REASON: sepsis, suprapubic abdominal pain, hx of RLL mass ORDERING PHYSICIAN: GIORGI GENAO MD PROCEDURE: ABD PEL WO - CT ABDOMEN/PELVIS W/O CONTRAST CT ABDOMEN/PELVIS W/O CONTRAST CLINICAL HISTORY: sepsis, suprapubic abdominal pain, hx of RLL mass COMPARISON: 11/27/2023 TECHNIQUE: Sequential axial images of abdomen and pelvis without contrast and with sagittal and coronal reconstructions. CT was performed with one or more of the following dose reduction techniques: automated exposure control, adjustment of the mA and/or kV according to patient size, or use of iterative reconstruction technique FINDINGS: Lung bases are clear. There is cardiomegaly with advanced mitral valve calcification. The liver and spleen are unremarkable. The gallbladder pancreas and right adrenal gland are unremarkable. Note is made of a 4.2 cm left adrenal mass. The kidneys and bladder are unremarkable. The uterus is within normal limits. There is moderate amount of fecal material in the colon with no identified bowel obstruction. There is no bulky abdominal or retroperitoneal lymphadenopathy. There is no free or free fluid. Note is made of mild calcified atherosclerotic vascular disease of the aorta without aneurysmal dilatation. There is accentuation of the normal lumbar lordosis. IMPRESSION: Constipation. Left adrenal mass that was demonstrated on the prior examination. DICTATED BY: CM KELLY DO DATE: 05/02/242049 REASON: SOB/FEVER ORDERING PHYSICIAN: STELLA FRANKEL NP PROCEDURE: CXR1VW - CHEST 1VW CHEST 1VW CLINICAL HISTORY: SOB/FEVER COMPARISON: 11/28/2023 TECHNIQUE: Single view of the chest was obtained. FINDINGS: Lungs are clear. The cardiac size mildly enlarged. The bony structures are within normal limits. IMPRESSION: Cardiomegaly. DICTATED BY: CM KELLY DO DATE: 05/02/24 1623 REASON: NON TRAUMA LEFT LATERAL ANTERIOR HIP ORDERING PHYSICIAN: STELLA FRANKEL NP PROCEDURE: HIP U 2V L - HIP UNILAT 2-3VW LEFT HIP UNILAT 2-3VW LEFT HISTORY: Nontrauma left lateral anterior hip COMPARISON: None TECHNIQUE: 2 images of left hip were obtained. FINDINGS: There is no acute displaced fracture or dislocation. Left hip joint space narrowing is seen. Nondisplaced fracture cannot be completely excluded. Fecal material is seen in the colon. Degenerative changes are seen. IMPRESSION: 1. Findings as described above. DICTATED BY: AZALIA BONILLA MD DATE: 05/03/24 1207 ASSESSMENT: Acute on chronic renal failure Acute on chronic normocytic anemia Sepsis, Complicated UTI Rule out plasma cell dyscrasia/multiple myeloma Hypothyroidism new diagnosis Debility/frailty Hypertension, Hyperlipidemia Type 2 diabetes mellitus PLAN: Labs, diagnostic, radiologic exams reviewed and interpreted by myself and supervising physician. We have reviewed external records in detail Pending bone marrow biopsy today Require close monitoring of renal function and electrolytes Order CBC, CMP, and electrolytes in am Continue with antibiotics Renal diabetic diet BiPAP as necessary, for respiratory distress Monitor blood pressure adjust medication doses as needed Avoid hypotensive episodes May use Dilaudid 0.5 mg IV every 6 hours as needed for severe pain Monitor blood sugars Strict intake, output, and daily weight should be monitored Please renally adjust medications Avoid nephrotoxic and nonsteroidal drugs Avoid contrast if possible Will continue to monitor renal function, anemia, electrolytes Treatment plan discussed with patient Questions were answered We have discussed with the other team physicians in detail about the care plan We will continue to monitor the patient closely ATTESTATION BY PHYSICIAN I have seen and examined the patient. I reviewed the documentation, medical decision making, and treatment plan as noted by the mid-level provider above. I agree with the findings and plan of care. KEON CARDENAS MD, [facility] [place] [facility] May 03, 2024 14:34
--- NOTE | 2024-05-03 19:36 | HMCSR ---
APPROVED REPORT EXAM: Two-dimensional and M-mode echocardiogram with Doppler and color Doppler. INDICATION ICD: Assess levf, r/o significant valvulopathy 2D Dimensions RVDd4.3 cmLVEF(%)70.8 (>50%)LVED Vol(simp.)87.1 mL IVSd1.8 (0.7-1.1cm)FS(%)40 %LVES Vol(simp.)24.6 mL LVDd4.5 (3.8-5.6cm)LA (2D)4.8 (1.6-4.0cm)LVEF(%, simp.)72 % PWd1.1 (0.7-1.1cm)Ao Root(2D)2.8 (2.0-3.7cm)LA ESV INDEX (4CH)48.40 mL/m2 IVSs1.6 cmLVOT diam1.9 (1.8-2.4cm)LA ESV INDEX (2CH)68.00 mL/m2 LVDs2.7 (2.5-4.0cm)LA ESV INDEX (BP)57.60 mL/m2 PWs1.7 cm Deformation Strain Apical 419.0 % Apical 219.0 % Apical 319.0 % Global Maxpds98.0 % M-Mode Dimensions EPSS0.9 cm LA (MM)5.0 (1.6-4.0cm) Ao Root(MM)2.6 (2.0-3.7cm) Aortic Valve AoV VTI0.8 mAo Mean GR30.0 mmHgLVOT VTI0.25 m HOLLIS (VMAX)0.9 cm2AVA (VTI) 0.9 cm2 Mitral Valve MV E Hldc254.3 cm/sDECEL Tkyj949 ms MV A Fdmf337.0 cm/sP 1/2 T70 ms E/A ratio1.3MVA (PHT)3.1 cm2 MR Max PG117 mmHg TDI E/E' Kmtqcc13.3E/E' Lenxwwq57.1 Medial E' Peak V4.20 cm/sLateral E' Peak V6.90 cm/s Pulmonary Valve PV VTI0.27 mPV Mean GR3 mmHg Tricuspid Valve TR Vmax3.0 m/sRAP (EST) 8 veWoLEZA00.0 mmHg TR Peak GR37.0 mmHg Left Ventricle The left ventricle is normal size. GLS -15%. Reduced global strain with normal ejection fraction and wall motion Mild to moderate concentric left ventricular hypertrophy. LVEF is 55-60%. Stage II diasto lic dysfunction. Right Ventricle The right ventricle is mildly dilated. The right ventricular systolic function is normal. Atria The left atrium is moderately dilated. The right atrium is severely dilated. Aortic Valve Aortic valve leaflets are sclerotic and display decreased opening. No aortic regurgitation is present . There is moderate valvular aortic stenosis. Highest mean aortic valve gradient is 30mmHg. Peak aort ic valve gradient is 57mmHg. Mitral Valve Mild mitral annular calcification present. Mitral regurgitation is mild to moderate. There is no mitr al valve stenosis. Tricuspid Valve The tricuspid valve is normal in structure. There is moderate tricuspid valve regurgitation noted. RV SP is 45mmHg Pulmonic Valve The pulmonary valve is normal in structure. There is no pulmonic valvular regurgitation. Great Vessels The aortic root is normal in size. The IVC is normal in size and collapses <50% with inspiration. Pericardium There is no pericardial effusion. Other Information Quality : Fair Conclusion Mild to moderate concentric left ventricular hypertrophy. LVEF is 55-60%. Stage II diastolic dysfunction. GLS -15%. Reduced global strain with normal ejection fraction and wall motion The left atrium is moderately dilated. Aortic valve leaflets are sclerotic and display decreased opening. There is moderate valvular aortic stenosis. Highest mean aortic valve gradient is 30mmHg. Peak aortic valve gradient is 57mmHg. Mild mitral annular calcification present. There is moderate tricuspid valve regurgitation noted. RVSP is 45mmHg
--- NOTE | 2024-05-03 20:21 | NUR ---
Losartan refusal Daughter at bedside. Pt and daughter refusing Losartan. Per daughter, Dr at [facility] said "no more" after her mother became too dizzy on it. Educated on risks of HTN.
[2024-05-03] MEDS ORDERED: LoSARTan 50 MG TABLET PO SCH (21:00)
--- NOTE | 2024-05-03 21:10 | CONS ---
CONSULT NOTE: endocrinology consult chief complaint: fatigue and anemia reason for consult: left adrenal mass and hypothyroidism Date of Service: May 03, 2024 HISTORY OF PRESENT ILLNESS: 83-year-old female with history of hypertension, hyperlipidemia, stage 3 chronic kidney disease, type 2 diabetes mellitus, history of recurrent anemia requiring blood transfusions, with concerns for plasma cell dyscrasia/multiple myeloma who presented to the ER for further evaluation of generalized fatigue, malaise, fevers, chills and poor oral intake. Denies any significant cough otherwise. Patient denies any syncope. Daughter has noticed that patient has been more fatigued and tired as well. Oral intake has been poor. Patient was hospitalized on 11/2023 with acute on chronic anemia requiring blood transfusion, and was undergoing further workup for multiple myeloma/plasma cell dyscrasia. Patient is followed by Dr. López on last hospitalization. 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 Daughter states that patient has been unable to follow up with Nephrology or oncology as outpatient since last discharge. On presentation to the hospital, patient was noted to be febrile with T-max of 102.0 F, heart rate of 80, blood pressure of 159/57 saturating 97% on room air. Chest x-ray showed cardiomegaly with no significant infiltrates. Labs [place] [address], hemoglobin of 6.2, hematocrit of 20.2, platelet count of 257048. CMP remarkable for sodium of 135, potassium 4.5, CO2 of 21, BUN of 33, creatinine 2.3, TSH of 10.4. CT ABDOMEN/PELVIS W/O CONTRAST CLINICAL HISTORY: sepsis, suprapubic abdominal pain, hx of RLL mass COMPARISON: 11/27/2023 TECHNIQUE: Sequential axial images of abdomen and pelvis without contrast and with sagittal and coronal reconstructions. CT was performed with one or more of the following dose reduction techniques: automated exposure control, adjustment of the mA and/or kV according to patient size, or use of iterative reconstruction technique FINDINGS: Lung bases are clear. There is cardiomegaly with advanced mitral valve calcification. The liver and spleen are unremarkable. The gallbladder pancreas and right adrenal gland are unremarkable. Note is made of a 4.2 cm left adrenal mass. The kidneys and bladder are unremarkable. The uterus is within normal limits. There is moderate amount of fecal material in the colon with no identified bowel obstruction. There is no bulky abdominal or retroperitoneal lymphadenopathy. There is no free or free fluid. Note is made of mild calcified atherosclerotic vascular disease of the aorta without aneurysmal dilatation. There is accentuation of the normal lumbar lordosis. IMPRESSION: Constipation. Left adrenal mass that was demonstrated on the prior examination. REVIEW OF SYSTEMS CONSTITUTIONAL: Fatigue, malaise, asthenia, fevers and chills NEUROLOGICAL: Denies headache, amaurosis fugax, motor weakness, sensory deficit, vertigo/spinning sensation, gait abnormalities, or tremors. ENT: No hearing loss, otalgia, otorrhea, rhinitis, rhinorrhea, hoarseness, or sore throat. CARDIOVASCULAR: Denies any exertional angina, dyspnea on exertion, orthopnea, paroxysmal nocturnal dyspnea, palpitations, life-threatening arrhythmias, claudication. PULMONARY: Denies any shortness of breath, cough, phlegm/sputum, hemoptysis, pleuritic chest pain. SLEEP: Denies morning headaches, daytime somnolence or napping. Denies difficulty falling asleep, staying asleep, waking from sleep. Denies knowledge of snoring. GASTROINTESTINAL: Nausea, poor oral intake, suprapubic discomfort GENITOURINARY: Denies frequency, urgency, nocturia, hematuria or incontinence (Storage/Irritative symptoms.) Low urinary stream, straining to void, urinary intermittency or hesitancy, splitting of the voiding stream, terminal dribbling. ENDOCRINOLOGIC: Denies polyuria, polydipsia, polyphagia or heat/cold intolerances. HEMATOLOGIC: Denies thrombophilia/previous clots, or coagulopathy/bleeding disorders. ONCOLOGIC: Denies personal history of malignancy. DERMATOLOGIC: Denies rashes or pruritus. PSYCHIATRIC: Denies any suicidal or homicidal ideation. Denies hallucinations. PAST MEDICAL HISTORY: Anemia, hypertension, hyperlipidemia, type 2 diabetes mellitus, chronic kidney disease stage 3, patient on last admission on 12/07 was being worked up for multiple myeloma/plasma cell dyscrasia PAST SURGICAL HISTORY: History of cataract surgery PAST SOCIAL HISTORY: Lives with daughter at home, independent with ADLs FAMILY HISTORY: Denies family history of blood disorders Allergies: Patient denies known drug allergies. Home medications: Metformin 500 mg daily, nifedipine 90 mg daily, Lyrica 25 mg t.i.d. p.r.n., sodium bicarbonate 650 mg b.i.d. Coded Allergies: No Known Drug Allergies (Unverified Allergy, Unknown, 12/30/21) PHYSICAL EXAM GENERAL APPEARANCE: The patient is awake, alert, appears debilitated and weak NEUROLOGICAL: Cranial nerves II-XII grossly intact. Motor is 5/5 in bilateral upper and lower extremities proximal to distal. No sensory deficits. HEENT: Face is symmetric. Pupils are equal and reactive. Extraocular movements are intact. NECK: Supple. No JVD. No thyromegaly. No submental, submandibular, pre- /postauricular, occipital or supraclavicular lymphadenopathy. CHEST: Normal chest expansion. No Telemetry. LUNGS: Absence of any rales, rhonchi or any wheezing. CARDIOVASCULAR: Regular. S1 and S2 normal. 3/6 murmur noted of the precordium : Deferred. No Swift. EXTREMITIES: Non-edematous and not cyanotic. No clubbing. Good capillary refill. SKIN: No skin breakdown. ASSESSMENT: left adrenal mass patient denies past history of left adrenal adenoma denies any signs/symptoms of elin syndrome, pheochromocytoma or hyperaldosteronism.check adrenal function testing. CT abdomen without iv contrast show left adrenal mass of 4.2 cm. patient will need need CT adrenal with adrenal protocol or MRI if renal function permits. primary hypothyroidism clinically euthyroid but biochemically hypothyroid. she denies hx of hypot hyroidism and already started on levothyroxine 50 mcg daily. Acute on chronic normocytic anemia, POA Sepsis, 2/2 complicated UTI, POA Complicated UTI, POA Acute on chronic renal failure, POA Rule out plasma cell dyscrasia/multiple myeloma, POA Hypothyroidism new diagnosis, POA Debility/frailty, POA History of anemia requiring blood transfusions, POA Hypertension, POA Intermittent history of epistaxis, POA Hyperlipidemia, POA Type 2 diabetes mellitus, POA controlled Mild hyponatremia, POA History of stvr-we-heucwvgh mitral valve regurgitation, POA History of moderate tricuspid regurgitation, POA PLAN: continue levothyroxine 50 mcg daily. check serum aldosterone, plasma renin, plasma fractionated metanephrine and normetanephrines. educated on left adrenal mass and hypothyroidism. patient is followed by oncology for possible multiple myeloma and bone marrow biopsy. thanks for allowing me to particpate in patient care and will continue to follow up. eeucated on May 02, 2024 21:23 Vital Signs 05/03/24 05/03/24 08:00 16:20 Temp 98.8 Pulse 73 Resp 16 B/P (MAP) 147/69 Pulse Ox 97 O2 Delivery Room Air O2 Flow Rate 0 FiO2 21 Hematology Labs: Test 05/03/24 14:20 05/03/24 03:36 05/02/24 22:08 05/02/24 14:21 Range/Units Hemoglobin 7.9 L 12.0-16.0 g/dL Hematocrit 25.0 L 36-48 % White Blood Count 10.8 4.8-10.8 K/uL Red Blood Count 2.37 L 4.00-5.50 MIL/uL Mean Corpuscular Volume 90.7 79-99 fL Mean Corpuscular Hemoglobin 28.7 27.0-33.0 pg Mean Corpuscular Hemoglobin Concent 31.6 L 32.0-36.0 g/dL Red Cell Distribution Width 22.5 H 11.0-15.5 % Platelet Count 144 130-400 K/uL Mean Platelet Volume 9.5 7.5-10.5 fL Immature Granulocyte % (Auto) 2.0 H 0-1 % Neutrophils (%) (Auto) 70.7 40.0-77.0 % Lymphocytes (%) (Auto) 18.2 L 21.0-51.0 % Monocytes (%) (Auto) 7.6 3.0-13.0 % Eosinophils (%) (Auto) 1.1 0.0-8.0 % Basophils (%) (Auto) 0.4 0.0-5.0 % Neutrophils # (Auto) 7.6 1.8-7.7 K/uL Lymphocytes # (Auto) 2.0 1.0-4.8 K/uL Monocytes # (Auto) 0.8 0.1-1.0 K/uL Eosinophils # (Auto) 0.12 0.00-0.70 K/uL Basophils # (Auto) 0.04 0.00-0.20 K/uL Absolute Immature Granulocyte (auto 0.22 0-1 K/uL Nucleated Red Blood Cells 0.8 H 0.0-0.19 % Erythrocyte Sedimentation Rate > 150 H 0-30 MM/HR Red Blood Cell Morphology See comments Chemistry Labs: Test 05/03/24 20:19 05/03/24 03:36 05/02/24 22:08 05/02/24 14:21 Range/Units Whole Blood Glucose 272 #H 70-110 MG/DL Sodium Level 137 136-145 mmol/L Potassium Level 3.8 3.5-5.1 mmol/L Chloride Level 107 101-111 mmol/L Carbon Dioxide Level 22 21-32 mmol/L Blood Urea Nitrogen 30 H 7-18 mg/dL Creatinine 2.2 H 0.5-1.0 mg/dL Glomerular Filtration Rate Calc 21 >90 mL/min Random Glucose 91 70-105 mg/dL Uric Acid 6.6 2.6-7.2 mg/dL Total Calcium 9.0 8.5-10.1 mg/dL Phosphorus Level 4.0 2.5-4.9 mg/dL Magnesium Level 2.20 1.80-2.40 mg/dL Total Bilirubin 0.3 # 0.2-1.0 mg/dL Aspartate Amino Transf (AST/SGOT) 12 10-37 U/L Alanine Aminotransferase (ALT/SGPT) 10 L 12-78 U/L Alkaline Phosphatase 47 L 50-136 U/L Total Protein 10.7 H 6.0-8.3 g/dL Albumin 1.6 L 3.5-5.0 g/dL Lactic Acid Level 1.4 0.8-2.5 mmol/L Iron Level 57 50-170 mcg/dL Total Iron Binding Capacity 179 L 250-450 mcg/dL Percent Iron Saturation 31.8 22-44 % Direct Bilirubin 0.1 0.0-0.3 mg/dL Hemoglobin A1c 6.4 H 4.0-6.0 % Estimated Average Glucose (eAG) 137 H 70-126 mg/dL Ferritin 282 H 15-150 ng/mL Lactate Dehydrogenase 197 81-234 U/L C-Reactive Protein, Quantitative 38.60 H 0.5-3.0 mg/L Vitamin B12 Level 712 193-986 pg/mL Folic Acid (LAB) 13.70 2-20 ng/mL Procalcitonin 0.26 0.05-0.5 ng/mL Thyroid Stimulating Hormone (TSH) 10.40 #H 0.36-3.74 uIU/mL Free Thyroxine (T4) Direct 0.80 0.76-1.46 ng/dL Free Triiodothyronine (T3) pg/mL 1.70 L 2.18-3.98 pg/mL Coagulation Labs: Test 05/03/24 03:36 Range/Units Prothrombin Time 12.6 H 9.6-11.6 SEC Prothromb Time International Ratio 1.18 H 0.85-1.15 Activated Partial Thromboplast Time 28.8 26.3-35.5 SEC Current Medications Medications (Trade) Dose Ordered Sig/Mare Route Start Time Stop Time Status Last Admin Dose Admin Dexamethasone Sodium Phosphate (dexaMETHasone 4MG/ML 1ML VIAL) 20 mg Q24H IV 05/03/24 13:30 05/03/24 13:09 DC Dexamethasone Sodium Phosphate 20 mg/Sodium Chloride 50 ml @ 100 mls/hr Q24H IV 05/03/24 13:30 06/02/24 13:29 05/03/24 13:25 100 MLS/HR Insulin Human Regular (humuLIN R 100 UNIT/ML 3ML) INSULIN SLIDING SCAL... ACHS SQ 05/03/24 07:30 06/02/24 07:29 05/03/24 17:12 2 UNIT Levothyroxine Sodium (SYNTHroid 50MCG TAB) 50 mcg DAILY@0630 PO 05/03/24 06:30 06/02/24 06:29 05/03/24 06:52 50 MCG Losartan Potassium (CozAAR 50 mg TAB) 50 mg BID PO 05/03/24 09:30 06/02/24 09:29 05/03/24 10:07 50 MG Losartan Potassium (CozAAR 50 mg TAB) 50 mg BID PO 05/03/24 21:00 05/03/24 09:32 DC Nifedipine (adALAT 30MG) 30 mg ONCE PO 05/02/24 21:00 05/02/24 23:59 DC 05/02/24 20:49 30 MG Nifedipine (adALAT 30MG) 90 mg DAILY PO 05/03/24 09:00 06/02/24 08:59 05/03/24 09:44 90 MG Pantoprazole Sodium (PROTonix 40MG INJ) 40 mg Q24H IVP 05/02/24 18:00 06/01/24 17:59 05/03/24 17:12 40 MG Piperacillin Sod/ Tazobactam Sod (Zosyn 3.375gm+NS 50ml) 3.375 gm Q12H IVPB 05/02/24 18:30 05/02/24 23:59 DC 05/02/24 20:49 3.375 GM Piperacillin Sod/ Tazobactam Sod (Zosyn 3.375gm+NS 50ml) 3.375 gm ZOSY12 IVPB 05/02/24 21:00 05/02/24 18:02 DC Piperacillin Sod/ Tazobactam Sod (Zosyn 3.375gm+NS 50ml) 3.375 gm ZOSY12 IVPB 05/03/24 09:00 05/13/24 08:59 05/03/24 20:10 3.375 GM Sodium Bicarbonate (Sodium Bicarbonate) 650 mg BID PO 05/02/24 21:00 06/01/24 20:59 05/03/24 20:10 650 MG Sodium Chloride 1,000 ml @ 50 mls/hr Q20H IV 05/02/24 18:00 05/03/24 09:00 DC 05/02/24 18:34 50 MLS/HR ANNA MARIE SQUIRES MD May 03, 2024 21:10
--- NOTE | 2024-05-03 23:14 | CONS ---
NEPHROLOGY CONSULTATION REASON FOR CONSULTATION: Renal failure. HISTORY OF PRESENT ILLNESS: This patient is an 83-year-old with hypertension, hyperlipidemia, CKD, diabetes, hypertension, anemia, requiring transfusion. The patient has suspected myeloma. The patient is admitted with weakness, fatigue, fever, chills and overall in poor oral intake, found to have very low hemoglobin. The patient has not followed up for outpatient basis. The patient has received transfusion. PAST MEDICAL HISTORY: Hypertension, hyperlipidemia, diabetes, CKD and anemia. The patient has underlying hypertension. PAST SURGICAL HISTORY: Cataract surgery. SOCIAL HISTORY: Living with family. No smoking, alcohol or drug abuse. ALLERGIES: None. HOME MEDICINES: Reviewed, include metformin. REVIEW OF SYSTEMS: CONSTITUTIONAL: Weakness with no fever, chills or rigors. HEENT: With no headache, oral ulcers, sore throat or difficulty swallowing. RESPIRATORY: With no cough, expectoration, hemoptysis, or pleuritic pain. CARDIOVASCULAR: No orthopnea, PND. GASTROINTESTINAL: Negative for nausea, vomiting, constipation, diarrhea. GENITOURINARY: Negative for hematuria. ENDOCRINE: No polyuria, polydipsia or polyphagia. PSYCHIATRIC: Negative for anxiety, depression or hallucination. LYMPHATIC AND HEMATOPOIETIC: No lymph nodes noted. MUSCULOSKELETAL: With no joint swelling, redness, or inflammation. DERMATOLOGICAL: No rashes, pruritus or skin lesion. Other systemic review is unchanged and unremarkable. PHYSICAL EXAMINATION: GENERAL: Pale, no other distress or deformities, lying in bed. VITAL SIGNS: Blood pressure is 134/57, pulse 58, respiratory rate is 18, afebrile. HEENT: Head is atraumatic. Pupils are round and reactive. Sclerae are anicteric. Conjunctivae not pale. Oral mucosa is not dry. NECK: Supple. No masses, bruits. Thyroid is palpable. Neck has no bruits. CHEST: Shows equal thoracic percussion note being resonant in all areas. CARDIAC: Regular rhythm, no rub, no S3, S4. No parasternal heave. ABDOMEN: No guarding or tenderness. Bowel sounds are normoactive. No free fluid. EXTREMITIES: With no edema. No cyanosis, clubbing. BACK: No tenderness or back deformities. LYMPHATIC: With no lymph node swelling in neck. NEUROLOGIC: The patient is fully awake, alert, nonfocal. No cranial nerve palsy. LABORATORY DATA: We have reviewed the labs. Hemoglobin as low as 6.2. Chemistries have been reviewed. The patient has elevated creatinine of 2.3, BUN of 33, low sodium of 135. Urine has shown some proteinuria. Previous serologies have been COVID-19 positive before. The patient has H. pylori high before. The patient has immunology done. Previous immunofixation apparently has been false positive. Old records have been reviewed. Imaging studies are personally reviewed. CT abdomen has been done and chest x-ray was done. Left adrenal mass has been present. PROBLEMS: Include: * Acute on chronic renal failure. * Severe anemia. * Myeloma most likely with ____ positive. The patient is admitted with sepsis now. * The patient has UTI. * Hypothyroidism. * Hypertension. * History of epistaxis. * Hyperlipidemia. * Type 2 diabetes. * History of hyponatremia. The patient has mitral regurgitation. The patient has underlying other comorbidities failure to thrive. PLAN: * The patient is being admitted. * Broad-spectrum antibiotic in adjusted dose to avoid nephrotoxic drugs. * The patient has adrenal mass, she will need workup. * Followup by Hematology/Oncology. * Endocrine workup may be needed for a renal mass. * The patient will get continued monitoring of electrolytes and renal function. Transfuse as necessary. Nonsteroidal drugs to be avoided. Other nephrotoxics to be avoided. We have discussed with other team physicians and we have reviewed the old record, external records in detail and continued followup. IV Dilaudid 0.5 mg q.6 h. can be used for pain. TID: [id number] RECEIPT: [id number]
[2024-05-04] VITALS (7 sets, daily range): BP systolic 119–131; BP diastolic 51–59; PULSE 58–68; RESP 18–58; TEMP 97.7–98.7; O2SAT 96–98
[2024-05-04 04:28] LABS: ALBUMIN 1.6 g/dL (3.5-5.0); BILIRUBIN,TOTAL 0.1 mg/dL (0.2-1.0); CREATININE 2.2 mg/dL (0.5-1.0); MAGNESIUM 2.2 mg/dL (1.80-2.40); PHOSPHORUS 3.9 mg/dL (2.5-4.9); POTASSIUM 4.5 mmol/L (3.5-5.1); TOTAL PROTEIN, SERUM 10.6 g/dL (6.0-8.3)
[2024-05-04 04:55] LABS: URIC ACID 6.6 mg/dL (2.6-7.2)
[2024-05-04 04:57] LABS: BASOPHILS # (AUTO) 0.04 K/uL (0.00-0.20); BASOPHILS % (AUTO) 0.4 % (0.0-5.0); EOSINOPHILS # (AUTO) 0.03 K/uL (0.00-0.70); EOSINOPHILS % (AUTO) 0.3 % (0.0-8.0); HEMATOCRIT 33.9 % (36-48); IMMATURE GRANULOCYTE ABSOLUTE 0.23 K/uL (0-1); LYMPHOCYTES # (AUTO) 1.2 K/uL (1.0-4.8); LYMPHOCYTES % (AUTO) 12.1 % (21.0-51.0); MEAN CORPUSCULAR HEMOGLOBIN 28.3 pg (27.0-33.0); MEAN CORPUSCULAR HGB CONC 31.9 g/dL (32.0-36.0); MONOCYTES # (AUTO) 0.4 K/uL (0.1-1.0); MONOCYTES % (AUTO) 4.5 % (3.0-13.0); NEUTROPHILS # (AUTO) 7.8 K/uL (1.8-7.7); NEUTROPHILS % (AUTO) 80.3 % (40.0-77.0); NUCLEATED RED BLOOD CELLS 0.8 % (0.0-0.19); PLATELET COUNT (AUTO) 137 K/uL (130-400); RED BLOOD CELL COUNT(AUTO) 3.81 MIL/uL (4.00-5.50); RED CELL DISTRIBUTION WIDTH 20.9 % (11.0-15.5); WHITE BLOOD COUNT (AUTO) 9.7 K/uL (4.8-10.8)
[2024-05-04] MEDS: INSULIN humuLIN R 100 UNIT/ML 3ML SQ SCH (06:22)
--- NOTE | 2024-05-04 09:59 | PN ---
[facility] PROGRESS NOTE Date of Service: May 04, 2024 Time of Service: 09:52 SUBJECTIVE: [ ] The patient has been seen and examined earlier this morning during my rounding, no acute events overnight, during my visit the patient is comfortably bed, BP earlier this morning 167/60, rate controlled at 64, afebrile, saturating normal on room air. Patient remains alert and oriented x3, denies dizziness, no headache, no chest pain, no shortness a breath, no nausea, no vomiting, no abdominal discomfort. She denies melena, no hematochezia, no hematemesis, no hematuria. She is waiting to be transfused 1 unit of PRBC. Results of imaging tests reviewed, discussed in detail, incidental finding of left adrenal mass discussed as well, all questions answered. Family members at bedside. 05/04 patient has been seen and examined during my acute events overnight, hemodynamically stable, BP 120/50, afebrile, saturating air. Currently she is NPO, scheduled for CT-guided bone biopsy. REVIEW OF SYSTEMS CONSTITUTIONAL: Fatigue, malaise, asthenia, fevers and chills NEUROLOGICAL: Denies headache, amaurosis fugax, motor weakness, sensory deficit, vertigo/spinning sensation, gait abnormalities, or tremors. ENT: No hearing loss, otalgia, otorrhea, rhinitis, rhinorrhea, hoarseness, or sore throat. CARDIOVASCULAR: Denies any exertional angina, dyspnea on exertion, orthopnea, paroxysmal nocturnal dyspnea, palpitations, life-threatening arrhythmias, claudication. PULMONARY: Denies any shortness of breath, cough, phlegm/sputum, hemoptysis, pleuritic chest pain. SLEEP: Denies morning headaches, daytime somnolence or napping. Denies difficulty falling asleep, staying asleep, waking from sleep. Denies knowledge of snoring. GASTROINTESTINAL: Nausea, poor oral intake, suprapubic discomfort GENITOURINARY: Denies frequency, urgency, nocturia, hematuria or incontinence (Storage/Irritative symptoms.) Low urinary stream, straining to void, urinary intermittency or hesitancy, splitting of the voiding stream, terminal dribbling. ENDOCRINOLOGIC: Denies polyuria, polydipsia, polyphagia or heat/cold intol erances. HEMATOLOGIC: Denies thrombophilia/previous clots, or coagulopathy/bleeding disorders. ONCOLOGIC: Denies personal history of malignancy. DERMATOLOGIC: Denies rashes or pruritus. PSYCHIATRIC: Denies any suicidal or homicidal ideation. Denies hallucinations. PHYSICAL EXAM GENERAL APPEARANCE: The patient is awake, alert, appears debilitated and weak NEUROLOGICAL: Cranial nerves II-XII grossly intact. Motor is 5/5 in bilateral upper and lower extremities proximal to distal. No sensory deficits. HEENT: Face is symmetric. Pupils are equal and reactive. Extraocular movements are intact. NECK: Supple. No JVD. No thyromegaly. No submental, submandibular, pre- /postauricular, occipital or supraclavicular lymphadenopathy. CHEST: Normal chest expansion. No Telemetry. LUNGS: Absence of any rales, rhonchi or any wheezing. CARDIOVASCULAR: Regular. S1 and S2 normal. 3/6 murmur noted of the precordium ABDOMEN: Mild tenderness to palpation of the suprapubic region, no rebound or guarding noted : Deferred. No Swift. EXTREMITIES: Non-edematous and not cyanotic. No clubbing. Good capillary refill. SKIN: No skin breakdown. Vital Signs (last 8hr) Date Time Temp Pulse Resp B/P (MAP) Pulse Ox O2 Delivery O2 Flow Rate FiO2 05/04/24 08:00 97.7 61 18 128/51 96 Room Air 05/04/24 04:20 98.4 58 18 119/53 97 Room Air LABS: Laboratory: Test 05/04/24 06:17 05/04/24 03:42 05/03/24 03:36 05/02/24 22:08 Range/Units Whole Blood Glucose 151 H 70-110 MG/DL White Blood Count 9.7 4.8-10.8 K/uL Red Blood Count 3.81 L 4.00-5.50 MIL/uL Hemoglobin 10.8 #L 12.0-16.0 g/dL Hematocrit 33.9 #L 36-48 % Mean Corpuscular Volume 89.0 79-99 fL Mean Corpuscular Hemoglobin 28.3 27.0-33.0 pg Mean Corpuscular Hemoglobin Concent 31.9 L 32.0-36.0 g/dL Red Cell Distribution Width 20.9 H 11.0-15.5 % Platelet Count 137 130-400 K/uL Mean Platelet Volume 9.6 7.5-10.5 fL Immature Granulocyte % (Auto) 2.4 H 0-1 % Neutrophils (%) (Auto) 80.3 H 40.0-77.0 % Lymphocytes (%) (Auto) 12.1 L 21.0-51.0 % Monocytes (%) (Auto) 4.5 3.0-13.0 % Eosinophils (%) (Auto) 0.3 0.0-8.0 % Basophils (%) (Auto) 0.4 0.0-5.0 % Neutrophils # (Auto) 7.8 H 1.8-7.7 K/uL Lymphocytes # (Auto) 1.2 1.0-4.8 K/uL Monocytes # (Auto) 0.4 0.1-1.0 K/uL Eosinophils # (Auto) 0.03 0.00-0.70 K/uL Basophils # (Auto) 0.04 0.00-0.20 K/uL Absolute Immature Granulocyte (auto 0.23 0-1 K/uL Nucleated Red Blood Cells 0.8 H 0.0-0.19 % Sodium Level 136 136-145 mmol/L Potassium Level 4.5 3.5-5.1 mmol/L Chloride Level 106 101-111 mmol/L Carbon Dioxide Level 19 L 21-32 mmol/L Blood Urea Nitrogen 38 H 7-18 mg/dL Creatinine 2.2 H 0.5-1.0 mg/dL Glomerular Filtration Rate Calc 21 >90 mL/min Random Glucose 187 H 70-105 mg/dL Uric Acid 6.6 2.6-7.2 mg/dL Total Calcium 8.9 8.5-10.1 mg/dL Phosphorus Level 3.9 2.5-4.9 mg/dL Magnesium Level 2.20 1.80-2.40 mg/dL Total Bilirubin 0.1 L 0.2-1.0 mg/dL Aspartate Amino Transf (AST/SGOT) 10 10-37 U/L Alanine Aminotransferase (ALT/SGPT) 9 L 12-78 U/L Alkaline Phosphatase 44 L 50-136 U/L Total Protein 10.6 H 6.0-8.3 g/dL Albumin 1.6 L 3.5-5.0 g/dL Prothrombin Time 12.6 H 9.6-11.6 SEC Prothromb Time International Ratio 1.18 H 0.85-1.15 Activated Partial Thromboplast Time 28.8 26.3-35.5 SEC Erythrocyte Sedimentation Rate > 150 H 0-30 MM/HR Lactic Acid Level 1.4 0.8-2.5 mmol/L Iron Level 57 50-170 mcg/dL Total Iron Binding Capacity 179 L 250-450 mcg/dL Percent Iron Saturation 31.8 22-44 % Direct Bilirubin 0.1 0.0-0.3 mg/dL Test 05/02/24 19:09 05/02/24 14:21 Range/Units Urine Color COLORLESS YELLOW Urine Appearance CLEAR CLEAR Urine pH 5.0 5.0-8.0 Urine Specific [place] 1.006 1.001-1.031 Urine Protein 20 H NEGATIVE mg/dL Urine Glucose (UA) NEGATIVE NEGATIVE mg/dL Urine Ketones NEGATIVE NEGATIVE mg/dL Urine Occult Blood SMALL H NEGATIVE Urine Nitrate 1+ H NEGATIVE Urine Bilirubin NEGATIVE NEGATIVE mg/dL Urine Urobilinogen 0.2 0.2-1.0 mg/dL Urine Leukocyte Esterase NEGATIVE NEGATIVE Sergey/uL Urine RBC 0-1 0-1 /HPF Urine WBC 2-5 H 0-1 /HPF Urine Squamous Epithelial Cells RARE 0-2 /HPF Urine Bacteria MOD None Seen /HPF Red Blood Cell Morphology See comments Hemoglobin A1c 6.4 H 4.0-6.0 % Estimated Average Glucose (eAG) 137 H 70-126 mg/dL Ferritin 282 H 15-150 ng/mL Lactate Dehydrogenase 197 81-234 U/L C-Reactive Protein, Quantitative 38.60 H 0.5-3.0 mg/L Vitamin B12 Level 712 193-986 pg/mL Folic Acid (LAB) 13.70 2-20 ng/mL Procalcitonin 0.26 0.05-0.5 ng/mL Thyroid Stimulating Hormone (TSH) 10.40 #H 0.36-3.74 uIU/mL Free Thyroxine (T4) Direct 0.80 0.76-1.46 ng/dL Free Triiodothyronine (T3) pg/mL 1.70 L 2.18-3.98 pg/mL Influenza Type A Antigen Negative For Type A NEGATIVE Influenza Type B Antigen Negative For Type B NEGATIVE SARS-CoV-2 Antigen (Rapid) PRESUMPTIVE NEGATIVE NEGATIVE Group A Streptococcus Rapid negative NEGATIVE Current Medications Medications (Trade) Dose Ordered Sig/Mare Route PRN Reason Start Time Stop Time Status Last Admin Dose Admin Acetaminophen (TYLenol 500MG TAB) 500 mg Q6H PRN PO MILD PAIN (1-3) 05/02/24 18:00 06/01/24 17:59 Dexamethasone Sodium Phosphate (dexaMETHasone 4MG/ML 1ML VIAL) 20 mg Q24H IV 05/03/24 13:30 05/03/24 13:09 DC Dexamethasone Sodium Phosphate 20 mg/Sodium Chloride 50 ml @ 100 mls/hr Q24H IV 05/03/24 13:30 06/02/24 13:29 05/03/24 13:25 100 MLS/HR Hydralazine HCl (APRESOLine 20MG INJ) 10 mg Q6H PRN IV ADMINISTER FOR SBP > 160 05/02/24 18:00 06/01/24 17:59 Insulin Human Regular (humuLIN R 100 UNIT/ML 3ML) INSULIN SLIDING SCAL... ACHS SQ 05/03/24 07:30 05/03/24 21:37 DC 05/03/24 21:14 5 UNIT Insulin Human Regular (humuLIN R 100 UNIT/ML 3ML) INSULIN SLIDING SCAL... ACHS SQ 05/04/24 07:30 06/03/24 07:29 Levothyroxine Sodium (SYNTHroid 50MCG TAB) 50 mcg DAILY@0630 PO 05/03/24 06:30 06/02/24 06:29 05/03/24 06:52 50 MCG Losartan Potassium (CozAAR 50 mg TAB) 50 mg BID PO 05/03/24 09:30 06/02/24 09:29 05/03/24 10:07 50 MG Losartan Potassium (CozAAR 50 mg TAB) 50 mg BID PO 05/03/24 21:00 05/03/24 09:32 DC Nifedipine (adALAT 30MG) 30 mg ONCE PO 05/02/24 21:00 05/02/24 23:59 DC 05/02/24 20:49 30 MG Nifedipine (adALAT 30MG) 90 mg DAILY PO 05/03/24 09:00 06/02/24 08:59 05/04/24 08:54 90 MG Ondansetron HCl (zoFRAN 4MG INJ) 4 mg Q6H PRN IVP NAUSEA/VOMITING 05/02/24 18:00 06/01/24 17:59 Pantoprazole Sodium (PROTonix 40MG INJ) 40 mg Q24H IVP 05/02/24 18:00 06/01/24 17:59 05/03/24 17:12 40 MG Piperacillin Sod/ Tazobactam Sod (Zosyn 3.375gm+NS 50ml) 3.375 gm Q12H IVPB 05/02/24 18:30 05/02/24 23:59 DC 05/02/24 20:49 3.375 GM Piperacillin Sod/ Tazobactam Sod (Zosyn 3.375gm+NS 50ml) 3.375 gm ZOSY12 IVPB 05/02/24 21:00 05/02/24 18:02 DC Piperacillin Sod/ Tazobactam Sod (Zosyn 3.375gm+NS 50ml) 3.375 gm ZOSY12 IVPB 05/03/24 09:00 05/13/24 08:59 05/04/24 08:54 3.375 GM Sodium Bicarbonate (Sodium Bicarbonate) 650 mg BID PO 05/02/24 21:00 06/01/24 20:59 05/04/24 08:54 650 MG Sodium Chloride 1,000 ml @ 50 mls/hr Q20H IV 05/02/24 18:00 05/03/24 09:00 DC 05/02/24 18:34 50 MLS/HR DIAGNOSTICS / RADIOLOGY: [ ] ASSESSMENT: Acute on chronic normocytic anemia, POA Sepsis, 2/2 complicated UTI, POA Complicated UTI, secondary to E coli ESBL POA Acute on chronic renal failure, POA Rule out plasma cell dyscrasia/multiple myeloma, POA Hypothyroidism new diagnosis, POA Debility/frailty, POA History of anemia requiring blood transfusions, POA Hypertension, POA Intermittent history of epistaxis, POA Hyperlipidemia, POA Type 2 diabetes mellitus, POA Mild hyponatremia, POA History of [id number] mitral valve regurgitation, POA History of moderate tricuspid regurgitation, POA Left adrenal mass, POA PLAN: The patient remains admitted to the progressive care unit Continue the patient on broad-spectrum IV antibiotics CT of the abdomen and pelvis without contrast reviewed, patient with left adrenal mass measuring 4.2 cm, discussed the findings with the patient and the family at the bedside. Oncology and endocrinology consultation requested, continue to follow indication. Continue to follow CBC, transfuse as needed Iron level of 57. Follow stool occult blood Continue to replace electrolytes IV per protocol GI and DVT prophylaxis Disposition: Remains admitted to PCU, scheduled for CT-guided bone marrow biopsy. Need to rule out plasma cell dyscrasia. Patient with a E coli ESBL, continue antibiotics, ID consultation requested, follow input and recommendation. Continue to follow oncology and endocrinology input and recommendation. Continue to monitor renal function in a.m.. Plan of action discussed in detail with the patient and the family at bedside, all questions answered, agreed and understood the information provided. Total PCU time spent greater than 30 minutes. KARIME GARCIA MD May 04, 2024 09:59
[2024-05-04] MEDS: ZOSYN 3.375GM +NS 50ML IV SCH (10:00)
[2024-05-04 10:08] LABS: ABG BASE EXCESS -5.4 mmol/L (-2.0-3.0); ABG OXYGEN SATURATION 96.3 % (94.0-98.0); ABG PCO2 30 mmHg (32-45); ABG PH 7.401 (7.350-7.450); PO2, ARTERIAL BG 82.6 mmHg (83.0-108.0); VENT MODE, BG RA (ROOM AIR)
[2024-05-04] MEDS ORDERED: FENTanyl CITRate PF 50 MCG/1 ML 2ML VIAL ONE (11:12)
[2024-05-04] MEDS ORDERED: MIDAZOLAM HCL 1 MG/ML 2ML VIAL ONE (11:12)
[2024-05-04] MEDS ORDERED: COMPOUND IV MISC 1 EACH IVSOLN MISC PRN (11:30)
--- NOTE | 2024-05-04 12:30 | NUR ---
U/S GD BONE MARROW BX/ ASPIRATION PROCEDURE PERFORMED BY DR Vera NEUMANN. PUNCTURE SITE RT BUTTOCK AND PATIENT TOLERATED PROCEDURE WELL. SPECIMEN X5 COLLECTED AND SENT TO LAB. END OF PROCEDURE AT 1200. BIOPSY NEEDLE REMOVED AND DRESSING APPLIED. NO BLEEDING NOTED. REPORT GIVEN TO Rosa Isela OLSEN RN AND PATIENT TRANSPORTED TO [facility] VIA BED AT 1230. AAO X3 WITH NO C/O PAIN.
--- NOTE | 2024-05-04 17:22 | PN ---
83-year-old female with history of hypertension, hyperlipidemia, stage 3 chronic kidney disease, type 2 diabetes mellitus, history of recurrent anemia requiring blood transfusions, with concerns for plasma cell dyscrasia/multiple myeloma who presented to the ER for further evaluation of generalized fatigue, malaise, fevers, chills and poor oral intake. Symptoms started last night and patient reports having asthenia, malaise and suprapubic discomfort. Denies any significant cough otherwise. Patient denies any syncope. Daughter has noticed that patient has been more fatigued and tired as well. Oral intake has been poor. Patient was hospitalized on 11/2023 with acute on chronic anemia requiring blood transfusion, and was undergoing further workup for multiple myeloma/plasma cell dyscrasia. I followed this patient to previously and was suspected of plasma cell dyscrasia. 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 This patient have monoclonal protein with IgG lambda. Patient had bone marrow biopsy done 05/05/2024 PHYSICAL EXAM GENERAL APPEARANCE: The patient is awake, alert, appears debilitated and weak NEUROLOGICAL: Cranial nerves II-XII grossly intact. Motor is 5/5 in bilateral upper and lower extremities proximal to distal. No sensory deficits. HEENT: Face is symmetric. Pupils are equal and reactive. Extraocular movements are intact. NECK: Supple. No JVD. No thyromegaly. No submental, submandibular, pre- /postauricular, occipital or supraclavicular lymphadenopathy. CHEST: Normal chest expansion. No Telemetry. LUNGS: Absence of any rales, rhonchi or any wheezing. CARDIOVASCULAR: Regular. S1 and S2 normal. 3/6 murmur noted of the precordium ABDOMEN: Mild tenderness to palpation of the suprapubic region, no rebound or guarding noted : Deferred. No Swift. EXTREMITIES: Non-edematous and not cyanotic. No clubbing. Good capillary refill. SKIN: No skin breakdown. Assessment 1. Severe anemia 2. 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 SPEP, UPEP and free light chain was ordered from previous admission 3. Thrombocytopenia 4. Sepsis 5. Acute on chronic renal failure 6. Hypothyroidism 7. Hypertension 8. Diabetes mellitus Plan 1. Patient had bone marrow biopsy done 05/05/2024. It will take up to 2 weeks for the result to come back. 2. There was hypersegmented neutrophils. This patient to be started on folic acid 1 mg p.o. daily and vitamin B12 1000 mcg p.o. daily. 3. This patient have rouleaux phenomena. SPEP, UPEP and free light chain was ordered which was positive for IgG lambda light chain. 4. If this patient stable she could be discharged to follow-up with me in the next 2 weeks 5. TDirect Elio was negative. 6. This patient to be started on dexamethasone 20 mg IV daily 7. If this patient is stable she could be discharged to follow-up with me as outpatient. 8. There was family member in the room. I have long discussion with the patient and family member regarding the plan of care. I answer all question and concern and I spent more than 35 minutes. Vitals/Labs Vital Signs Date Time Temp Pulse Resp B/P (MAP) Pulse Ox O2 Delivery O2 Flow Rate FiO2 05/04/24 16:00 97.7 61 18 128/51 96 Room Air 05/04/24 08:00 0 21 Laboratory Tests 05/04/24 03:42 Medications Current Medications Acetaminophen 1,000 mg ONCE ONCE PO Last administered on 05/02/24at 14:11; Start 05/02/24 at 14:00; Stop 05/02/24 at 14:01; Status DC Sodium Chloride 1,000 ml @ 0 mls/hr ONCE ONCE IV Last administered on 05/02/24at 15:18; Start 05/02/24 at 15:00; Stop 05/02/24 at 15:01; Status DC Ceftriaxone Sodium 1 gm ONCE ONCE IVPB Last administered on 05/02/24at 15:18; Start 05/02/24 at 15:00; Stop 05/02/24 at 15:01; Status DC Sodium Chloride 1,000 ml @ 50 mls/hr Q20H IV Last administered on 05/02/24at 18:34; Start 05/02/24 at 18:00; Stop 05/03/24 at 09:00; Status DC Piperacillin Sod/ Tazobactam Sod 3.375 gm ZOSY12 IVPB; Start 05/02/24 at 21:00; Stop 05/02/24 at 18:02; Status DC Acetaminophen 500 mg Q6H PRN PO; Start 05/02/24 at 18:00; Stop 06/01/24 at 17:59 Ondansetron HCl 4 mg Q6H PRN IVP; Start 05/02/24 at 18:00; Stop 06/01/24 at 17:59 Hydralazine HCl 10 mg Q6H PRN IV; Start 05/02/24 at 18:00; Stop 06/01/24 at 17:59 Pantoprazole Sodium 40 mg Q24H IVP Last administered on 05/04/24at 16:26; Start 05/02/24 at 18:00; Stop 06/01/24 at 17:59 Piperacillin Sod/ Tazobactam Sod 3.375 gm Q12H IVPB Last administered on 05/02/24at 20:49; Start 05/02/24 at 18:30; Stop 05/02/24 at 23:59; Status DC Piperacillin Sod/ Tazobactam Sod 3.375 gm ZOSY12 IVPB Last administered on 05/04/24at 08:54; Start 05/03/24 at 09:00; Stop 05/04/24 at 09:56; Status DC Sodium Bicarbonate 650 mg BID PO Last administered on 05/04/24at 08:54; Start 05/02/24 at 21:00; Stop 06/01/24 at 20:59 Nifedipine 90 mg DAILY PO Last administered on 05/04/24at 08:54; Start 05/03/24 at 09:00; Stop 06/02/24 at 08:59 Nifedipine 30 mg ONCE PO Last administered on 05/02/24at 20:49; Start 05/02/24 at 21:00; Stop 05/02/24 at 23:59; Status DC Insulin Human Regular INSULIN SLIDING SCAL... ACHS SQ Last administered on 05/03/24at 21:14; Start 05/03/24 at 07:30; Stop 05/03/24 at 21:37; Status DC Levothyroxine Sodium 50 mcg DAILY@0630 PO Last administered on 05/03/24at 06:52; Start 05/03/24 at 06:30; Stop 06/02/24 at 06:29 Losartan Potassium 50 mg BID PO Last administered on 05/03/24at 10:07; Start 05/03/24 at 09:30; Stop 12/18/24 at 09:29 Losartan Potassium 50 mg BID PO; Start 05/03/24 at 21:00; Stop 05/03/24 at 09:32; Status DC Dexamethasone Sodium Phosphate 20 mg Q24H IV; Start 05/03/24 at 13:30; Stop 05/03/24 at 13:09; Status DC Dexamethasone Sodium Phosphate 20 mg/Sodium Chloride 50 ml @ 100 mls/hr Q24H IV Last administered on 05/04/24at 13:16; Start 05/03/24 at 13:30; Stop 06/02/24 at 13:29 Insulin Human Regular INSULIN SLIDING SCAL... ACHS SQ Last administered on 05/04/24at 16:23; Start 05/04/24 at 07:30; Stop 06/03/24 at 07:29 Piperacillin Sod/ Tazobactam Sod 3.375 gm Q12H IV; Start 05/04/24 at 10:00; Stop 05/14/24 at 09:59 Fentanyl Citrate 100 mcg STK-MED ONCE .ROUTE; Start 05/04/24 at 11:12; Stop 05/04/24 at 11:13; Status DC Midazolam HCl 2 mg STK-MED ONCE .ROUTE; Start 05/04/24 at 11:12; Stop 05/04/24 at 11:13; Status DC SOFÍA PALACIO MD May 04, 2024 17:22
--- NOTE | 2024-05-04 19:08 | PN ---
endocrinology progress note Date of Service: May 04, 2024 subjective: patient is started on levothyroxine 50 mcg daily. pending bone marrow biopsy. labs ordered for left adrenal adenoma. CT ABDOMEN/PELVIS W/O CONTRAST CLINICAL HISTORY: sepsis, suprapubic abdominal pain, hx of RLL mass COMPARISON: 11/27/2023 TECHNIQUE: Sequential axial images of abdomen and pelvis without contrast and with sagittal and coronal reconstructions. CT was performed with one or more of the following dose reduction techniques: automated exposure control, adjustment of the mA and/or kV according to patient size, or use of iterative reconstruction technique FINDINGS: Lung bases are clear. There is cardiomegaly with advanced mitral valve calcification. The liver and spleen are unremarkable. The gallbladder pancreas and right adrenal gland are unremarkable. Note is made of a 4.2 cm left adrenal mass. The kidneys and bladder are unremarkable. The uterus is within normal limits. There is moderate amount of fecal material in the colon with no identified bowel obstruction. There is no bulky abdominal or retroperitoneal lymphadenopathy. There is no free or free fluid. Note is made of mild calcified atherosclerotic vascular disease of the aorta without aneurysmal dilatation. There is accentuation of the normal lumbar lordosis. IMPRESSION: Constipation. Left adrenal mass that was demonstrated on the prior examination. PAST MEDICAL HISTORY: Anemia, hypertension, hyperlipidemia, type 2 diabetes mellitus, chronic kidney disease stage 3, patient on last admission on 12/07 was being worked up for multiple myeloma/plasma cell dyscrasia PAST SURGICAL HISTORY: History of cataract surgery PAST SOCIAL HISTORY: Lives with daughter at home, independent with ADLs FAMILY HISTORY: Denies family history of blood disorders Allergies: Patient denies known drug allergies. Home medications: Metformin 500 mg daily, nifedipine 90 mg daily, Lyrica 25 mg t.i.d. p.r.n., sodium bicarbonate 650 mg b.i.d. Coded Allergies: No Known Drug Allergies (Unverified Allergy, Unknown, 12/30/21) ASSESSMENT: left adrenal mass patient denies past history of left adrenal adenoma denies any signs/symptoms of elin syndrome, pheochromocytoma or hyperaldosteronism.check adrenal function testing. CT abdomen without iv contrast show left adrenal mass of 4.2 cm. patient will need need CT adrenal with adrenal protocol or MRI if renal function permits. primary hypothyroidism clinically euthyroid but biochemically hypothyroid. she denies hx of hypothyroidism and already started on levothyroxine 50 mcg daily. Acute on chronic normocytic anemia, POA Sepsis, 2/2 complicated UTI, POA Complicated UTI, POA Acute on chronic renal failure, POA Rule out plasma cell dyscrasia/multiple myeloma, POA Hypothyroidism new diagnosis, POA Debility/frailty, POA History of anemia requiring blood transfusions, POA Hypertension, POA Intermittent history of epistaxis, POA Hyperlipidemia, POA Type 2 diabetes mellitus, POA controlled Mild hyponatremia, POA History of [id number] mitral valve regurgitation, POA History of moderate tricuspid regurgitation, POA PLAN: continue levothyroxine 50 mcg daily. follow on serum aldosterone, plasma renin, plasma fractionated metanephrine and normetanephrines. educated on left adrenal mass and hypothyroidism. patient is followed by oncology for possible multiple myeloma and bone marrow biopsy. patient will need levothyroxine 50 mcg daily at discharge and can follow up with me in 2-4 weeks. Vitals/Labs Vital Signs Date Time Temp Pulse Resp B/P (MAP) Pulse Ox O2 Delivery O2 Flow Rate FiO2 05/04/24 16:00 97.7 61 18 128/51 96 Room Air 05/04/24 08:00 0 21 Laboratory Tests 05/04/24 03:42 Medications Current Medications Acetaminophen 1,000 mg ONCE ONCE PO Last administered on 05/02/24at 14:11; Start 05/02/24 at 14:00; Stop 05/02/24 at 14:01; Status DC Sodium Chloride 1,000 ml @ 0 mls/hr ONCE ONCE IV Last administered on 05/02/24at 15:18; Start 05/02/24 at 15:00; Stop 05/02/24 at 15:01; Status DC Ceftriaxone Sodium 1 gm ONCE ONCE IVPB Last administered on 05/02/24at 15:18; Start 05/02/24 at 15:00; Stop 05/02/24 at 15:01; Status DC Sodium Chloride 1,000 ml @ 50 mls/hr Q20H IV Last administered on 05/02/24at 18:34; Start 05/02/24 at 18:00; Stop 05/03/24 at 09:00; Status DC Piperacillin Sod/ Tazobactam Sod 3.375 gm ZOSY12 IVPB; Start 05/02/24 at 21:00; Stop 05/02/24 at 18:02; Status DC Acetaminophen 500 mg Q6H PRN PO; Start 05/02/24 at 18:00; Stop 06/01/24 at 17:59 Ondansetron HCl 4 mg Q6H PRN IVP; Start 05/02/24 at 18:00; Stop 06/01/24 at 17:59 Hydralazine HCl 10 mg Q6H PRN IV; Start 05/02/24 at 18:00; Stop 06/01/24 at 17:59 Pantoprazole Sodium 40 mg Q24H IVP Last administered on 05/04/24at 16:26; Start 05/02/24 at 18:00; Stop 06/01/24 at 17:59 Piperacillin Sod/ Tazobactam Sod 3.375 gm Q12H IVPB Last administered on 05/02/24at 20:49; Start 05/02/24 at 18:30; Stop 05/02/24 at 23:59; Status DC Piperacillin Sod/ Tazobactam Sod 3.375 gm ZOSY12 IVPB Last administered on 05/04/24at 08:54; Start 05/03/24 at 09:00; Stop 05/04/24 at 09:56; Status DC Sodium Bicarbonate 650 mg BID PO Last administered on 05/04/24at 08:54; Start 05/02/24 at 21:00; Stop 06/01/24 at 20:59 Nifedipine 90 mg DAILY PO Last administered on 05/04/24at 08:54; Start 05/03/24 at 09:00; Stop 06/02/24 at 08:59 Nifedipine 30 mg ONCE PO Last administered on 05/02/24at 20:49; Start 05/02/24 at 21:00; Stop 05/02/24 at 23:59; Status DC Insulin Human Regular INSULIN SLIDING SCAL... ACHS SQ Last administered on 05/03/24at 21:14; Start 05/03/24 at 07:30; Stop 05/03/24 at 21:37; Status DC Levothyroxine Sodium 50 mcg DAILY@0630 PO Last administered on 05/03/24at 06:52; Start 05/03/24 at 06:30; Stop 06/02/24 at 06:29 Losartan Potassium 50 mg BID PO Last administered on 05/03/24at 10:07; Start 05/03/24 at 09:30; Stop 06/02/24 at 09:29 Losartan Potassium 50 mg BID PO; Start 05/03/24 at 21:00; Stop 05/03/24 at 09:32; Status DC Dexamethasone Sodium Phosphate 20 mg Q24H IV; Start 05/03/24 at 13:30; Stop 05/03/24 at 13:09; Status DC Dexamethasone Sodium Phosphate 20 mg/Sodium Chloride 50 ml @ 100 mls/hr Q24H IV Last administered on 05/04/24at 13:16; Start 05/03/24 at 13:30; Stop 06/02/24 at 13:29 Insulin Human Regular INSULIN SLIDING SCAL... ACHS SQ Last administered on 05/04/24at 16:23; Start 05/04/24 at 07:30; Stop 06/03/24 at 07:29 Piperacillin Sod/ Tazobactam Sod 3.375 gm Q12H IV; Start 05/04/24 at 10:00; Stop 05/14/24 at 09:59 Fentanyl Citrate 100 mcg STK-MED ONCE .ROUTE; Start 05/04/24 at 11:12; Stop 05/04/24 at 11:13; Status DC Midazolam HCl 2 mg STK-MED ONCE .ROUTE; Start 05/04/24 at 11:12; Stop 05/04/24 at 11:13; Status DC ANNA MARIE SQUIRES MD May 04, 2024 19:08
--- NOTE | 2024-05-04 19:34 | PN ---
SUBJECTIVE: The patient has renal failure, anemia, multiple other comorbidities. No fever, chills or rigors. No cough, expectoration, or hemoptysis. No abdominal pain. No nausea or vomiting. No chest pain. No orthopnea or PND. Other systemic review is unchanged. The patient has severe anemia, requiring transfusion and suspected myeloma with monoclonal spike. The patient has renal failure, acute on chronic. PHYSICAL EXAMINATION: GENERAL: Pale, no other distress. VITAL SIGNS: Blood pressure is 130/59, pulse 67, respiratory rate is 18, afebrile. HEENT: Head is atraumatic. Pupils are round and reactive. Sclerae are anicteric. Conjunctivae not pale. Oral mucosa is not dry. NECK: Without masses or bruits. Thyroid is palpable. Neck has no bruits. CHEST: Shows equal to thoracic percussion note being resonant in all areas. CARDIAC: Regular rhythm. No rub. No S3, S4, gallop. No parasternal heave. ABDOMEN: No guarding or tenderness. Bowel sounds are normoactive. No free fluid. LABORATORY DATA: Labs have been reviewed in detail. Old records reviewed. 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 PLAN: Bone marrow planned. Continued monitoring of renal function. Dilaudid 0.5 every 6 hours can be used for pain. Intake, output, weight, electrolytes and overall status will be monitored. Condition remained guarded, seen several times today. Thank you for this patient. TID: [id number] RECEIPT: [id number]
--- NOTE | 2024-05-04 20:34 | HMCIMG ---
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 Sterile Prep: All elements of maximal sterile barrier technique, including hand hygiene and cutaneous antisepsis were used. A time-out was performed prior to the procedure. Anesthesia type: Moderate sedation and local anesthetic. Estimated blood loss: Less than 5 cc. TECHNIQUE: Intraprocedural or immediate post-procedural complications: None The patient was placed prone on the table. The lower back was prepped and draped in a sterile fashion. 1% lidocaine was used for local anesthesia. Initial imaging was used to localize an appropriate entry site. Using imaging guidance, a 13-gauge bone marrow biopsy needle was advanced into the right posterior iliac crest and confirmatory image was obtained. Approximately 12 cc of marrow was aspirated and the needle was gently advanced to obtain a core biopsy. The needle was removed and hemostasis achieved with manual compression. Sterile dressing was applied. Completion imaging was obtained. The patient tolerated the procedure well. No immediate complication. FINDINGS: Ultrasound demonstrated adequate position of the needle. Completion imaging demonstrated no evidence of hematoma. IMPRESSION: Uneventful bone marrow biopsy using ultrasound guidance. Specimen sent for analysis.
--- NOTE | 2024-05-04 20:34 | HMCIMG ---
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 Sterile Prep: All elements of maximal sterile barrier technique, including hand hygiene and cutaneous antisepsis were used. A time-out was performed prior to the procedure. Anesthesia type: Moderate sedation and local anesthetic. Estimated blood loss: Less than 5 cc. TECHNIQUE: Intraprocedural or immediate post-procedural complications: None The patient was placed prone on the table. The lower back was prepped and draped in a sterile fashion. 1% lidocaine was used for local anesthesia. Initial imaging was used to localize an appropriate entry site. Using imaging guidance, a 13-gauge bone marrow biopsy needle was advanced into the right posterior iliac crest and confirmatory image was obtained. Approximately 12 cc of marrow was aspirated and the needle was gently advanced to obtain a core biopsy. The needle was removed and hemostasis achieved with manual compression. Sterile dressing was applied. Completion imaging was obtained. The patient tolerated the procedure well. No immediate complication. FINDINGS: Ultrasound demonstrated adequate position of the needle. Completion imaging demonstrated no evidence of hematoma. IMPRESSION: Uneventful bone marrow biopsy using ultrasound guidance. Specimen sent for analysis.
[2024-05-05 00:35] VITALS: BP 128/60; PULSE 68; RESP 18; TEMP 98.6
[2024-05-05 04:28] VITALS: BP 124/49; PULSE 58; RESP 18; TEMP 98.6
[2024-05-05 04:46] LABS: ALBUMIN 1.6 g/dL (3.5-5.0); BILIRUBIN,TOTAL 0.1 mg/dL (0.2-1.0); CREATININE 2.3 mg/dL (0.5-1.0); MAGNESIUM 2.4 mg/dL (1.80-2.40); POTASSIUM 4.5 mmol/L (3.5-5.1)
[2024-05-05 04:47] LABS: MEAN CORPUSCULAR HEMOGLOBIN 29.1 pg (27.0-33.0); MEAN CORPUSCULAR HGB CONC 32.5 g/dL (32.0-36.0); MEAN CORPUSCULAR VOLUME 89.6 fL (79-99); NUCLEATED RED BLOOD CELLS 0.3 % (0.0-0.19); RED BLOOD CELL COUNT(AUTO) 2.68 MIL/uL (4.00-5.50)
[2024-05-05 07:00] VITALS: BP 139/60; PULSE 58; RESP 20; TEMP 98
--- NOTE | 2024-05-05 07:05 | PN ---
[facility] PROGRESS NOTE Date of Service: May 05, 2024 Time of Service: 07:05 SUBJECTIVE: [ ] The patient has been seen and examined earlier this morning during my rounding, no acute events overnight, during my visit the patient is comfortably bed, BP earlier this morning 167/60, rate controlled at 64, afebrile, saturating normal on room air. Patient remains alert and oriented x3, denies dizziness, no headache, no chest pain, no shortness a breath, no nausea, no vomiting, no abdominal discomfort. She denies melena, no hematochezia, no hematemesis, no hematuria. She is waiting to be transfused 1 unit of PRBC. Results of imaging tests reviewed, discussed in detail, incidental finding of left adrenal mass discussed as well, all questions answered. Family members at bedside. 05/04 patient has been seen and examined during my acute events overnight, hemodynamically stable, BP 120/50, afebrile, saturating air. Currently she is NPO, scheduled for CT-guided bone biopsy. 05/05 the patient has been seen and examined earlier this morning during my rounding, no acute events overnight, she remains hemodynamically stable, afebrile, saturating air. She is alert oriented x3, she is having breakfast, tolerating well, no nausea, no vomiting, no discomfort. Results of blood tests reviewed, discussed with the patient. The patient underwent bone marrow biopsy by IR yesterday, tolerated well. No pain to the area. No family members at bedside during visit. REVIEW OF SYSTEMS CONSTITUTIONAL: Fatigue, malaise, asthenia, fevers and chills NEUROLOGICAL: Denies headache, amaurosis fugax, motor weakness, sensory defi cit, vertigo/spinning sensation, gait abnormalities, or tremors. ENT: No hearing loss, otalgia, otorrhea, rhinitis, rhinorrhea, hoarseness, or sore throat. CARDIOVASCULAR: Denies any exertional angina, dyspnea on exertion, orthopnea, paroxysmal nocturnal dyspnea, palpitations, life-threatening arrhythmias, claudication. PULMONARY: Denies any shortness of breath, cough, phlegm/sputum, hemoptysis, pleuritic chest pain. SLEEP: Denies morning headaches, daytime somnolence or napping. Denies difficulty falling asleep, staying asleep, waking from sleep. Denies knowledge of snoring. GASTROINTESTINAL: Nausea, poor oral intake, suprapubic discomfort GENITOURINARY: Denies frequency, urgency, nocturia, hematuria or incontinence (Storage/Irritative symptoms.) Low urinary stream, straining to void, urinary intermittency or hesitancy, splitting of the voiding stream, terminal dribbling. ENDOCRINOLOGIC: Denies polyuria, polydipsia, polyphagia or heat/cold intolerances. HEMATOLOGIC: Denies thrombophilia/previous clots, or coagulopathy/bleeding disorders. ONCOLOGIC: Denies personal history of malignancy. DERMATOLOGIC: Denies rashes or pruritus. PSYCHIATRIC: Denies any suicidal or homicidal ideation. Denies hallucinations. PHYSICAL EXAM GENERAL APPEARANCE: The patient is awake, alert, appears debilitated and weak NEUROLOGICAL: Cranial nerves II-XII grossly intact. Motor is 5/5 in bilateral upper and lower extremities proximal to distal. No sensory deficits. HEENT: Face is symmetric. Pupils are equal and reactive. Extraocular movements are intact. NECK: Supple. No JVD. No thyromegaly. No submental, submandibular, pre- /postauricular, occipital or supraclavicular lymphadenopathy. CHEST: Normal chest expansion. No Telemetry. LUNGS: Absence of any rales, rhonchi or any wheezing. CARDIOVASCULAR: Regular. S1 and S2 normal. 3/6 murmur noted of the precordium ABDOMEN: Mild tenderness to palpation of the suprapubic region, no rebound or guarding noted : Deferred. No Swift. EXTREMITIES: Non-edematous and not cyanotic. No clubbing. Good capillary refill. SKIN: No skin breakdown. Vital Signs (last 8hr) Date Time Temp Pulse Resp B/P (MAP) Pulse Ox O2 Delivery O2 Flow Rate FiO2 05/05/24 04:28 98.6 58 18 124/49 95 Room Air 05/05/24 00:35 98.6 68 18 128/60 98 Room Air LABS: Laboratory: Test 05/05/24 05:21 05/05/24 03:51 05/04/24 10:06 05/04/24 03:42 Range/Units Whole Blood Glucose 189 H 70-110 MG/DL White Blood Count 9.0 4.8-10.8 K/uL Red Blood Count 2.68 L 4.00-5.50 MIL/uL Hemoglobin 7.8 #L 12.0-16.0 g/dL Hematocrit 24.0 #L 36-48 % Mean Corpuscular Volume 89.6 79-99 fL Mean Corpuscular Hemoglobin 29.1 27.0-33.0 pg Mean Corpuscular Hemoglobin Concent 32.5 32.0-36.0 g/dL Red Cell Distribution Width 21.0 H 11.0-15.5 % Platelet Count 141 130-400 K/uL Mean Platelet Volume 9.7 7.5-10.5 fL Nucleated Red Blood Cells 0.3 H 0.0-0.19 % Sodium Level 136 136-145 mmol/L Potassium Level 4.5 3.5-5.1 mmol/L Chloride Level 107 101-111 mmol/L Carbon Dioxide Level 19 L 21-32 mmol/L Blood Urea Nitrogen 50 H 7-18 mg/dL Creatinine 2.3 H 0.5-1.0 mg/dL Glomerular Filtration Rate Calc 20 >90 mL/min Random Glucose 208 H 70-105 mg/dL Total Calcium 8.4 L 8.5-10.1 mg/dL Magnesium Level 2.40 1.80-2.40 mg/dL Total Bilirubin 0.1 L 0.2-1.0 mg/dL Aspartate Amino Transf (AST/SGOT) 11 10-37 U/L Alanine Aminotransferase (ALT/SGPT) 10 L 12-78 U/L Alkaline Phosphatase 43 L 50-136 U/L Total Protein 10.0 H 6.0-8.3 g/dL Albumin 1.6 L 3.5-5.0 g/dL Blood Gas Specimen Type Arterial Arterial Blood pH 7.401 7.350-7.450 Arterial Blood Partial Pressure CO2 30 L 32-45 mmHg Arterial Blood Partial Pressure O2 82.6 L 83.0-108.0 mmHg Arterial Blood HCO3 18.0 L 21.0-28.0 mmol/L Arterial Blood Oxygen Saturation 96.3 94.0-98.0 % Arterial Blood Base Excess -5.4 L -2.0-3.0 mmol/L Blood Gas Temperature 37.0 35.5-37.0 CELSIUS Blood Gas Vent Mode RA ROOM AIR FiO2 21.0 % Blood Gas Specimen Comment RB, JOSE ANTONIO,RN Immature Granulocyte % (Auto) 2.4 H 0-1 % Neutrophils (%) (Auto) 80.3 H 40.0-77.0 % Lymphocytes (%) (Auto) 12.1 L 21.0-51.0 % Monocytes (%) (Auto) 4.5 3.0-13.0 % Eosinophils (%) (Auto) 0.3 0.0-8.0 % Basophils (%) (Auto) 0.4 0.0-5.0 % Neutrophils # (Auto) 7.8 H 1.8-7.7 K/uL Lymphocytes # (Auto) 1.2 1.0-4.8 K/uL Monocytes # (Auto) 0.4 0.1-1.0 K/uL Eosinophils # (Auto) 0.03 0.00-0.70 K/uL Basophils # (Auto) 0.04 0.00-0.20 K/uL Absolute Immature Granulocyte (auto 0.23 0-1 K/uL Uric Acid 6.6 2.6-7.2 mg/dL Phosphorus Level 3.9 2.5-4.9 mg/dL Current Medications Medications (Trade) Dose Ordered Sig/Mare Route PRN Reason Start Time Stop Time Status Last Admin Dose Admin Acetaminophen (TYLenol 500MG TAB) 500 mg Q6H PRN PO MILD PAIN (1-3) 05/02/24 18:00 06/01/24 17:59 Dexamethasone Sodium Phosphate (dexaMETHasone 4MG/ML 1ML VIAL) 20 mg Q24H IV 05/03/24 13:30 05/03/24 13:09 DC Dexamethasone Sodium Phosphate 20 mg/Sodium Chloride 50 ml @ 100 mls/hr Q24H IV 05/03/24 13:30 06/02/24 13:29 05/04/24 13:16 100 MLS/HR Hydralazine HCl (APRESOLine 20MG INJ) 10 mg Q6H PRN IV ADMINISTER FOR SBP > 160 05/02/24 18:00 06/01/24 17:59 Insulin Human Regular (humuLIN R 100 UNIT/ML 3ML) INSULIN SLIDING SCAL... ACHS SQ 05/03/24 07:30 05/03/24 21:37 DC 05/03/24 21:14 5 UNIT Insulin Human Regular (humuLIN R 100 UNIT/ML 3ML) INSULIN SLIDING SCAL... ACHS SQ 05/04/24 07:30 06/03/24 07:29 05/05/24 06:01 2 UNIT Levothyroxine Sodium (SYNTHroid 50MCG TAB) 50 mcg DAILY@0630 PO 05/03/24 06:30 06/02/24 06:29 05/05/24 06:04 50 MCG Losartan Potassium (CozAAR 50 mg TAB) 50 mg BID PO 05/03/24 09:30 06/02/24 09:29 05/03/24 10:07 50 MG Losartan Potassium (CozAAR 50 mg TAB) 50 mg BID PO 05/03/24 21:00 05/03/24 09:32 DC Nifedipine (adALAT 30MG) 30 mg ONCE PO 05/02/24 21:00 05/02/24 23:59 DC 05/02/24 20:49 30 MG Nifedipine (adALAT 30MG) 90 mg DAILY PO 05/03/24 09:00 06/02/24 08:59 05/04/24 08:54 90 MG Ondansetron HCl (zoFRAN 4MG INJ) 4 mg Q6H PRN IVP NAUSEA/VOMITING 05/02/24 18:00 06/01/24 17:59 Pantoprazole Sodium (PROTonix 40MG INJ) 40 mg Q24H IVP 05/02/24 18:00 06/01/24 17:59 05/04/24 16:26 40 MG Piperacillin Sod/ Tazobactam Sod (Zosyn 3.375gm+NS 50ml) 3.375 gm Q12H IV 05/04/24 10:00 05/14/24 09:59 05/04/24 20:09 3.375 GM Piperacillin Sod/ Tazobactam Sod (Zosyn 3.375gm+NS 50ml) 3.375 gm Q12H IVPB 05/02/24 18:30 05/02/24 23:59 DC 05/02/24 20:49 3.375 GM Piperacillin Sod/ Tazobactam Sod (Zosyn 3.375gm+NS 50ml) 3.375 gm ZOSY12 IVPB 05/02/24 21:00 05/02/24 18:02 DC Piperacillin Sod/ Tazobactam Sod (Zosyn 3.375gm+NS 50ml) 3.375 gm ZOSY12 IVPB 05/03/24 09:00 05/04/24 09:56 DC 05/04/24 08:54 3.375 GM Sodium Bicarbonate (Sodium Bicarbonate) 650 mg BID PO 05/02/24 21:00 06/01/24 20:59 05/04/24 20:08 650 MG Sodium Chloride 1,000 ml @ 50 mls/hr Q20H IV 05/02/24 18:00 05/03/24 09:00 DC 05/02/24 18:34 50 MLS/HR DIAGNOSTICS / RADIOLOGY: [ ] ASSESSMENT: Acute on chronic normocytic anemia, POA Sepsis, 2/2 complicated UTI, POA Complicated UTI, secondary to E coli ESBL POA Acute on chronic renal failure, POA Rule out plasma cell dyscrasia/multiple myeloma, POA Hypothyroidism new diagnosis, POA Debility/frailty, POA History of anemia requiring blood transfusions, POA Hypertension, POA Intermittent history of epistaxis, POA Hyperlipidemia, POA Type 2 diabetes mellitus, POA Mild hyponatremia, POA History of [id number] mitral valve regurgitation, POA History of moderate tricuspid regurgitation, POA Left adrenal mass, POA PLAN: The patient remains admitted to the progressive care unit Continue the patient on broad-spectrum IV antibiotics CT of the abdomen and pelvis without contrast reviewed, patient with left adrenal mass measuring 4.2 cm, discussed the findings with the patient and the family at the bedside. Oncology and endocrinology consultation requested, continue to follow indication. Continue to follow CBC, transfuse as needed Iron level of 57. Follow stool occult blood Continue to replace electrolytes IV per protocol GI and DVT prophylaxis Disposition: Remains admitted to PCU, status post bone marrow biopsy 05/05/2024. Need to rule out plasma cell dyscrasia. Follow up pathology. Follow Hematology input and recommendation. Patient with a E coli ESBL, continue antibiotics, follow ID recommendations. Endocrinology input noted and appreciated. Plan of action discussed in detail with the patient and the family at bedside, all questions answered, agreed and understood the information provided. Total PCU time spent greater than 30 minutes. KARIME GARCIA MD May 05, 2024 07:05
[2024-05-05 07:38] LABS: ABG OXYGEN SATURATION 95.4 % (94.0-98.0); BASE EXCESS,VENOUS BLOOD GAS -5.6 (-2.0-3.0); DEVICE COMMENT VBG; HCO3,VENOUS BLOOD GAS 17.3 (22.0-29.0); PCO2,VENOUS BLOOD GAS 28 (38-54); PH,VENOUS BLOOD GAS 7.413 (7.320-7.430); PO2,VENOUS BLOOD GAS 74.7 mmHg (23.0-48.0); VENT MODE, BG VBG (ROOM AIR)
[2024-05-05 09:00] VITALS: O2SAT 96
[2024-05-05] MEDS ORDERED: LEVO50TA4 PO (10:42)
[2024-05-05 11:00] VITALS: BP 146/66; PULSE 61; RESP 20; TEMP 98
--- NOTE | 2024-05-05 13:26 | PN ---
NEPHROLOGY PROGRESS NOTE Date/Time Patient Seen: May 05, 2024 SUBJECTIVE: This is an 83-year-old female with a past medical history of hypertension, hyperlipidemia, chronic kidney disease, diabetes mellitus type 2, recurrent anemia She presented to the emergency room for further evaluation of generalized fatigue, malaise, fever, chills and poor oral intake. She has been followed by Dr. 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 She continues on antibiotics for positive urine culture ESBL E coli We are consulted for renal failure. Renal function remains stable Electrolytes are stable. She was seen in the medical floor, in no acute distress No family at the bedside Prognosis remains guarded REVIEW OF SYSTEMS: GENERAL: Positive for generalized weakness NEUROLOGIC: Negative for any blurry vision, blind spots, double vision, facial asymmetry, dysphagia, dysarthria, hemiparesis, hemisensory deficits, vertigo, ataxia. HEENT: Negative for any head trauma, neck trauma, neck stiffness, photophobia, phonophobia, sinusitis, rhinitis. CARDIAC: Negative for any chest pain, dyspnea on exertion, paroxysmal nocturnal dyspnea, peripheral edema. PULMONARY: Negative for any shortness of breath, wheezing, COPD, or TB exposure. GASTROINTESTINAL: Negative for any abdominal pain, nausea, vomiting, bright red blood per rectum, melena. GENITOURINARY: Negative for any dysuria, hematuria, incontinence. INTEGUMENTARY: Negative for any rashes, cuts, insect bites. RHEUMATOLOGIC: Negative for any joint pains, photosensitive rashes, history of vasculitis or kidney problems. HEMATOLOGIC: Negative for any abnormal bruising, frequent infections or bleeding. Vital Signs (last 8hr) Date Time Temp Pulse Resp B/P (MAP) Pulse Ox O2 Delivery O2 Flow Rate FiO2 05/03/24 11:47 98.2 62 16 152/51 97 Room Air 05/03/24 08:26 98.4 64 16 167/60 97 Room Air 05/03/24 08:00 97 Room Air* 0 21 PHYSICAL EXAM: GENERAL: Alert and oriented x 3. No acute distress. Well-nourished. EYES: EOMI. Anicteric. HENT: Moist mucous membranes. No scleral icterus. No cervical lymphadenopathy. LUNGS: Clear to auscultation bilaterally. No accessory muscle use. CARDIOVASCULAR: Regular rate and rhythm. No murmur. No JVD. ABDOMEN: Soft, non-tender and non-distended. No palpable masses. EXTREMITIES: No edema. Non-tender. SKIN: No rashes or lesions. Warm. NEUROLOGIC: No focal neurological deficits. CN II-XII grossly intact, but not individually tested. PSYCHIATRIC: Cooperative. Appropriate mood and affect. Current Medications Medications (Trade) Dose Ordered Sig/Mare Route PRN Reason Start Time Stop Time Status Last Admin Dose Admin Acetaminophen (TYLenol 500MG TAB) 500 mg Q6H PRN PO MILD PAIN (1-3) 05/02/24 18:00 06/01/24 17:59 Dexamethasone Sodium Phosphate (dexaMETHasone 4MG/ML 1ML VIAL) 20 mg Q24H IV 05/03/24 13:30 05/03/24 13:09 DC Dexamethasone Sodium Phosphate 20 mg/Sodium Chloride 50 ml @ 100 mls/hr Q24H IV 05/03/24 13:30 06/02/24 13:29 05/03/24 13:25 100 MLS/HR Hydralazine HCl (APRESOLine 20MG INJ) 10 mg Q6H PRN IV ADMINISTER FOR SBP > 160 05/02/24 18:00 06/01/24 17:59 Insulin Human Regular (humuLIN R 100 UNIT/ML 3ML) INSULIN SLIDING SCAL... ACHS SQ 05/03/24 07:30 06/02/24 07:29 Levothyroxine Sodium (SYNTHroid 50MCG TAB) 50 mcg DAILY@0630 PO 05/03/24 06:30 06/02/24 06:29 05/03/24 06:52 50 MCG Losartan Potassium (CozAAR 50 mg TAB) 50 mg BID PO 05/03/24 09:30 06/02/24 09:29 05/03/24 10:07 50 MG Losartan Potassium (CozAAR 50 mg TAB) 50 mg BID PO 05/03/24 21:00 05/03/24 09:32 DC Nifedipine (adALAT 30MG) 30 mg ONCE PO 05/02/24 21:00 05/02/24 23:59 DC 05/02/24 20:49 30 MG Nifedipine (adALAT 30MG) 90 mg DAILY PO 05/03/24 09:00 06/02/24 08:59 05/03/24 09:44 90 MG Ondansetron HCl (zoFRAN 4MG INJ) 4 mg Q6H PRN IVP NAUSEA/VOMITING 05/02/24 18:00 06/01/24 17:59 Pantoprazole Sodium (PROTonix 40MG INJ) 40 mg Q24H IVP 05/02/24 18:00 06/01/24 17:59 05/02/24 18:33 40 MG Piperacillin Sod/ Tazobactam Sod (Zosyn 3.375gm+NS 50ml) 3.375 gm Q12H IVPB 05/02/24 18:30 05/02/24 23:59 DC 05/02/24 20:49 3.375 GM Piperacillin Sod/ Tazobactam Sod (Zosyn 3.375gm+NS 50ml) 3.375 gm ZOSY12 IVPB 05/02/24 21:00 05/02/24 18:02 DC Piperacillin Sod/ Tazobactam Sod (Zosyn 3.375gm+NS 50ml) 3.375 gm ZOSY12 IVPB 05/03/24 09:00 05/13/24 08:59 05/03/24 09:33 3.375 GM Sodium Bicarbonate (Sodium Bicarbonate) 650 mg BID PO 05/02/24 21:00 06/01/24 20:59 05/03/24 09:33 650 MG Sodium Chloride 1,000 ml @ 50 mls/hr Q20H IV 05/02/24 18:00 05/03/24 09:00 DC 05/02/24 18:34 50 MLS/HR LABORATORY: [ ] Hematology Labs: Test 05/05/24 03:51 05/04/24 03:42 Range/Units White Blood Count 9.0 4.8-10.8 K/uL Red Blood Count 2.68 L 4.00-5.50 MIL/uL Hemoglobin 7.8 #L 12.0-16.0 g/dL Hematocrit 24.0 #L 36-48 % Mean Corpuscular Volume 89.6 79-99 fL Mean Corpuscular Hemoglobin 29.1 27.0-33.0 pg Mean Corpuscular Hemoglobin Concent 32.5 32.0-36.0 g/dL Red Cell Distribution Width 21.0 H 11.0-15.5 % Platelet Count 141 130-400 K/uL Mean Platelet Volume 9.7 7.5-10.5 fL Nucleated Red Blood Cells 0.3 H 0.0-0.19 % Immature Granulocyte % (Auto) 2.4 H 0-1 % Neutrophils (%) (Auto) 80.3 H 40.0-77.0 % Lymphocytes (%) (Auto) 12.1 L 21.0-51.0 % Monocytes (%) (Auto) 4.5 3.0-13.0 % Eosinophils (%) (Auto) 0.3 0.0-8.0 % Basophils (%) (Auto) 0.4 0.0-5.0 % Neutrophils # (Auto) 7.8 H 1.8-7.7 K/uL Lymphocytes # (Auto) 1.2 1.0-4.8 K/uL Monocytes # (Auto) 0.4 0.1-1.0 K/uL Eosinophils # (Auto) 0.03 0.00-0.70 K/uL Basophils # (Auto) 0.04 0.00-0.20 K/uL Absolute Immature Granulocyte (auto 0.23 0-1 K/uL Chemistry Labs: Test 05/05/24 11:37 05/05/24 03:51 05/04/24 03:42 Range/Units Whole Blood Glucose 177 H 70-110 MG/DL Bedside Glucose Comment Notified Nurse Sodium Level 136 136-145 mmol/L Potassium Level 4.5 3.5-5.1 mmol/L Chloride Level 107 101-111 mmol/L Carbon Dioxide Level 19 L 21-32 mmol/L Blood Urea Nitrogen 50 H 7-18 mg/dL Creatinine 2.3 H 0.5-1.0 mg/dL Glomerular Filtration Rate Calc 20 >90 mL/min Random Glucose 208 H 70-105 mg/dL Total Calcium 8.4 L 8.5-10.1 mg/dL Magnesium Level 2.40 1.80-2.40 mg/dL Total Bilirubin 0.1 L 0.2-1.0 mg/dL Aspartate Amino Transf (AST/SGOT) 11 10-37 U/L Alanine Aminotransferase (ALT/SGPT) 10 L 12-78 U/L Alkaline Phosphatase 43 L 50-136 U/L Total Protein 10.0 H 6.0-8.3 g/dL Albumin 1.6 L 3.5-5.0 g/dL Uric Acid 6.6 2.6-7.2 mg/dL Phosphorus Level 3.9 2.5-4.9 mg/dL DIAGNOSTICS / RADIOLOGY: REASON: ANEMIA ORDERING PHYSICIAN: SOFÍA PALACIO MD PROCEDURE: GUIDANCE - US GUIDANCE NDL PLCMT IR US GUIDANCE NDL PLCMT IR, US BX BONE MARROW ASP/BX IR 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 Sterile Prep: All elements of maximal sterile barrier technique, including hand hygiene and cutaneous antisepsis were used. A time-out was performed prior to the procedure. Anesthesia type: Moderate sedation and local anesthetic. Estimated blood loss: Less than 5 cc. TECHNIQUE: Intraprocedural or immediate post-procedural complications: None The patient was placed prone on the table. The lower back was prepped and draped in a sterile fashion. 1% lidocaine was used for local anesthesia. Initial imaging was used to localize an appropriate entry site. Using imaging guidance, a 13-gauge bone marrow biopsy needle was advanced into the right posterior iliac crest and confirmatory image was obtained. Approximately 12 cc of marrow was aspirated and the needle was gently advanced to obtain a core biopsy. The needle was removed and hemostasis achieved with manual compression. Sterile dressing was applied. Completion imaging was obtained. The patient tolerated the procedure well. No immediate complication. FINDINGS: Ultrasound demonstrated adequate position of the needle. Completion imaging demonstrated no evidence of hematoma. IMPRESSION: Uneventful bone marrow biopsy using ultrasound guidance. Specimen sent for analysis. DICTATED BY: JANETTE JIMENEZ MD DATE: 05/04/242030 REASON: assess levf, r/o significant valvulopathy, heart clinic to read ORDERING PHYSICIAN: GIORGI GENAO MD PROCEDURE: ECHO CMP - ECHO 2-D COMPLETE APPROVED REPORT EXAM: Two-dimensional and M-mode echocardiogram with Doppler and color Doppler. INDICATION ICD: Assess levf, r/o significant valvulopathy 2D Dimensions RVDd 4.3 cm LVEF(%) 70.8 (>50%) LVED Vol(simp.) 87.1 mL IVSd 1.8 (0.7-1.1cm) FS(%) 40 % LVES Vol(simp.) 24.6 mL LVDd 4.5 (3.8-5.6cm) LA (2D) 4.8 (1.6-4.0cm) LVEF(%, simp.) 72 % PWd 1.1 (0.7-1.1cm) Ao Root(2D) 2.8 (2.0-3.7cm) LA ESV INDEX (4CH) 48.40 mL/m2 IVSs 1.6 cm LVOT diam 1.9 (1.8-2.4cm) LA ESV INDEX (2CH) 68.00 mL/m2 LVDs 2.7 (2.5-4.0cm) LA ESV INDEX (BP) 57.60 mL/m2 PWs 1.7 cm Deformation Strain Apical 4 19.0 % Apical 2 19.0 % Apical 3 19.0 % Global Strain 19.0 % M-Mode Dimensions EPSS 0.9 cm LA (MM) 5.0 (1.6-4.0cm) Ao Root(MM) 2.6 (2.0-3.7cm) Aortic Valve AoV VTI 0.8 m Ao Mean GR 30.0 mmHg LVOT VTI 0.25 m HOLLIS (VMAX) 0.9 cm2 HOLLIS (VTI) 0.9 cm2 Mitral Valve MV E Vmax 152.3 cm/s DECEL Time 247 ms MV A Vmax 115.0 cm/s P 1/2 T 70 ms E/A ratio 1.3 MVA (PHT) 3.1 cm2 MR Max PG 117 mmHg TDI E/E' Medial 36.3 E/E' Lateral 22.1 Medial E' Peak V 4.20 cm/s Lateral E' Peak V 6.90 cm/s Pulmonary Valve PV VTI 0.27 m PV Mean GR 3 mmHg Tricuspid Valve TR Vmax 3.0 m/s RAP (EST) 8 mmHg RVSP 45.0 mmHg TR Peak GR 37.0 mmHg Left Ventricle The left ventricle is normal size. GLS -15%. Reduced global strain with normal ejection fraction and wall motion Mild to moderate concentric left ventricular hypertrophy. LVEF is 55-60%. Stage II diastolic dysfunction. Right Ventricle The right ventricle is mildly dilated. The right ventricular systolic function is normal. Atria The left atrium is moderately dilated. The right atrium is severely dilated. Aortic Valve Aortic valve leaflets are sclerotic and display decreased opening. No aortic regurgitation is present. There is moderate valvular aortic stenosis. Highest mean aortic valve gradient is 30mmHg. Peak aortic valve gradient is 57mmHg. Mitral Valve Mild mitral annular calcification present. Mitral regurgitation is mild to moderate. There is no mitral valve stenosis. Tricuspid Valve The tricuspid valve is normal in structure. There is moderate tricuspid valve regurgitation noted. RVSP is 45mmHg Pulmonic Valve The pulmonary valve is normal in structure. There is no pulmonic valvular regurgitation. Great Vessels The aortic root is normal in size. The IVC is normal in size and collapses <50% with inspiration. Pericardium There is no pericardial effusion. Other Information Quality : Fair Conclusion Mild to moderate concentric left ventricular hypertrophy. LVEF is 55-60%. Stage II diastolic dysfunction. GLS -15%. Reduced global strain with normal ejection fraction and wall motion The left atrium is moderately dilated. Aortic valve leaflets are sclerotic and display decreased opening. There is moderate valvular aortic stenosis. Highest mean aortic valve gradient is 30mmHg. Peak aortic valve gradient is 57mmHg. Mild mitral annular calcification present. There is moderate tricuspid valve regurgitation noted. RVSP is 45mmHg DICTATED BY: SHANNON POON MD DATE: 05/03/24 1044 REASON: sepsis, suprapubic abdominal pain, hx of RLL mass ORDERING PHYSICIAN: GIORGI GENAO MD PROCEDURE: ABD PEL WO - CT ABDOMEN/PELVIS W/O CONTRAST CT ABDOMEN/PELVIS W/O CONTRAST CLINICAL HISTORY: sepsis, suprapubic abdominal pain, hx of RLL mass COMPARISON: 11/27/2023 TECHNIQUE: Sequential axial images of abdomen and pelvis without contrast and with sagittal and coronal reconstructions. CT was performed with one or more of the following dose reduction techniques: automated exposure control, adjustment of the mA and/or kV according to patient size, or use of iterative reconstruction technique FINDINGS: Lung bases are clear. There is cardiomegaly with advanced mitral valve calcification. The liver and spleen are unremarkable. The gallbladder pancreas and right adrenal gland are unremarkable. Note is made of a 4.2 cm left adrenal mass. The kidneys and bladder are unremarkable. The uterus is within normal limits. There is moderate amount of fecal material in the colon with no identified bowel obstruction. There is no bulky abdominal or retroperitoneal lymphadenopathy. There is no free or free fluid. Note is made of mild calcified atherosclerotic vascular disease of the aorta without aneurysmal dilatation. There is accentuation of the normal lumbar lordosis. IMPRESSION: Constipation. Left adrenal mass that was demonstrated on the prior examination. DICTATED BY: CM KELLY DO DATE: 05/02/242049 REASON: SOB/FEVER ORDERING PHYSICIAN: STELLA FRAKNEL NP PROCEDURE: CXR1VW - CHEST 1VW CHEST 1VW CLINICAL HISTORY: SOB/FEVER COMPARISON: 11/28/2023 TECHNIQUE: Single view of the chest was obtained. FINDINGS: Lungs are clear. The cardiac size mildly enlarged. The bony structures are within normal limits. IMPRESSION: Cardiomegaly. DICTATED BY: CM KELLY DO DATE: 05/02/24 162 REASON: NON TRAUMA LEFT LATERAL ANTERIOR HIP ORDERING PHYSICIAN: STELLA FRANKEL NP PROCEDURE: HIP U 2V L - HIP UNILAT 2-3VW LEFT HIP UNILAT 2-3VW LEFT HISTORY: Nontrauma left lateral anterior hip COMPARISON: None TECHNIQUE: 2 images of left hip were obtained. FINDINGS: There is no acute displaced fracture or dislocation. Left hip joint space narrowing is seen. Nondisplaced fracture cannot be completely excluded. Fecal material is seen in the colon. Degenerative changes are seen. IMPRESSION: 1. Findings as described above. DICTATED BY: AZALIA BONILLA MD DATE: 05/03/24 1207 ASSESSMENT: Acute on chronic renal failure Acute on chronic normocytic anemia Sepsis, Complicated UTI Rule out plasma cell dyscrasia/multiple myeloma Hypothyroidism new diagnosis Debility/frailty Hypertension, Hyperlipidemia Type 2 diabetes mellitus PLAN: Labs, diagnostic, radiologic exams reviewed and interpreted by myself and supervising physician. We have reviewed external records in detail Pending further heme/onc recommendations Require close monitoring of renal function and electrolytes Order CBC, CMP, and electrolytes in am Continue with renally dosed antibiotics Renal diabetic diet BiPAP as necessary, for respiratory distress Monitor blood pressure adjust medication doses as needed Avoid hypotensive episodes May use Dilaudid 0.5 mg IV every 6 hours as needed for severe pain Monitor blood sugars Strict intake, output, and daily weight should be monitored Please renally adjust medications Avoid nephrotoxic and nonsteroidal drugs Avoid contrast if possible Will continue to monitor renal function, anemia, electrolytes Treatment plan discussed with patient Questions were answered We have discussed with the other team physicians in detail about the care plan We will continue to monitor the patient closely ATTESTATION BY PHYSICIAN I have seen and examined the patient. I reviewed the documentation, medical decision making, and treatment plan as noted by the mid-level provider above. I agree with the findings and plan of care. KEON CARDENAS MD, [facility] May 05, 2024 13:26
[2024-05-05 15:15] LABS: ALBUMIN/GLOBULIN RATIO (IFE) 0.5 (0.7-1.7); ALPHA-1 (IFE & PEP) 0.3 g/dL (0.0-0.4); GAMMA GLOBULINS (IFE & ELP) 4.8 g/dL (0.4-1.8); GLOBULIN TOTAL (IFE) 7.1 g/dL (2.2-3.9); IGA (IFE) 8 mg/dL (64-422); IGG (IMMUNOFIXATION) 7293 mg/dL (586-1602); IGM (IMMUNOFIXATION) <5 mg/dL (26-217); IMMUNOFIXATION RESULT Note: (.); TOTAL PROTEIN 10.1 g/dL (6.0-8.5)
--- NOTE | 2024-05-05 17:00 | NUR ---
discharge discussed discharge instructions with pt and daughter daughter aware of follow up appointments to be made telemetry pack removed iv x2 removed
--- NOTE | 2024-05-05 18:48 | PN ---
endocrinology progress note Date of Service: May 05, 2024 subjective: patient is started on levothyroxine 50 mcg daily. s/p bone marrow biopsy. labs ordered for left adrenal adenoma. CT ABDOMEN/PELVIS W/O CONTRAST CLINICAL HISTORY: sepsis, suprapubic abdominal pain, hx of RLL mass COMPARISON: 11/27/2023 TECHNIQUE: Sequential axial images of abdomen and pelvis without contrast and with sagittal and coronal reconstructions. CT was performed with one or more of the following dose reduction techniques: automated exposure control, adjustment of the mA and/or kV according to patient size, or use of iterative reconstruction technique FINDINGS: Lung bases are clear. There is cardiomegaly with advanced mitral valve calcification. The liver and spleen are unremarkable. The gallbladder pancreas and right adrenal gland are unremarkable. Note is made of a 4.2 cm left adrenal mass. The kidneys and bladder are unremarkable. The uterus is within normal limits. There is moderate amount of fecal material in the colon with no identified bowel obstruction. There is no bulky abdominal or retroperitoneal lymphadenopathy. There is no free or free fluid. Note is made of mild calcified atherosclerotic vascular disease of the aorta without aneurysmal dilatation. There is accentuation of the normal lumbar lordosis. IMPRESSION: Constipation. Left adrenal mass that was demonstrated on the prior examination. PAST MEDICAL HISTORY: Anemia, hypertension, hyperlipidemia, type 2 diabetes mellitus, chronic kidney disease stage 3, patient on last admission on 12/07 was being worked up for multiple myeloma/plasma cell dyscrasia PAST SURGICAL HISTORY: History of cataract surgery PAST SOCIAL HISTORY: Lives with daughter at home, independent with ADLs FAMILY HISTORY: Denies family history of blood disorders Allergies: Patient denies known drug allergies. Home medications: Metformin 500 mg daily, nifedipine 90 mg daily, Lyrica 25 mg t.i.d. p.r.n., sodium bicarbonate 650 mg b.i.d. Coded Allergies: No Known Drug Allergies (Unverified Allergy, Unknown, 12/30/21) ASSESSMENT: left adrenal mass patient denies past history of left adrenal adenoma denies any signs/symptoms of elin syndrome, pheochromocytoma or hyperaldosteronism.check adrenal function testing. CT abdomen without iv contrast show left adrenal mass of 4.2 cm. patient will need need CT adrenal with adrenal protocol or MRI if renal function permits. primary hypothyroidism clinically euthyroid but biochemically hypothyroid. she denies hx of hypothyroidism and already started on levothyroxine 50 mcg daily. Acute on chronic normocytic anemia, POA Sepsis, 2/2 complicated UTI, POA Complicated UTI, POA Acute on chronic renal failure, POA Rule out plasma cell dyscrasia/multiple myeloma, POA Hypothyroidism new diagnosis, POA Debility/frailty, POA History of anemia requiring blood transfusions, POA Hypertension, POA Intermittent history of epistaxis, POA Hyperlipidemia, POA Type 2 diabetes mellitus, POA controlled Mild hyponatremia, POA History of [id number] mitral valve regurgitation, POA History of moderate tricuspid regurgitation, POA PLAN: continue levothyroxine 50 mcg daily. follow on serum aldosterone, plasma renin, plasma fractionated metanephrine and normetanephrines. educated on left adrenal mass and hypothyroidism. patient is followed by oncology for possible multiple myeloma and bone marrow biopsy. patient will need levothyroxine 50 mcg daily at discharge and can follow up with me in 2-4 weeks. Vitals/Labs Vital Signs Date Time Temp Pulse Resp B/P (MAP) Pulse Ox O2 Delivery O2 Flow Rate FiO2 05/05/24 11:00 98.1 61 20 146/66 98 Room Air 05/05/24 09:00 0 21 Laboratory Tests 05/05/24 03:51 Medications Current Medications Acetaminophen 1,000 mg ONCE ONCE PO Last administered on 05/02/24at 14:11; Start 05/02/24 at 14:00; Stop 05/02/24 at 14:01; Status DC Sodium Chloride 1,000 ml @ 0 mls/hr ONCE ONCE IV Last administered on 05/02/24at 15:18; Start 05/02/24 at 15:00; Stop 05/02/24 at 15:01; Status DC Ceftriaxone Sodium 1 gm ONCE ONCE IVPB Last administered on 05/02/24at 15:18; Start 05/02/24 at 15:00; Stop 05/02/24 at 15:01; Status DC Sodium Chloride 1,000 ml @ 50 mls/hr Q20H IV Last administered on 05/02/24at 18:34; Start 05/02/24 at 18:00; Stop 05/03/24 at 09:00; Status DC Piperacillin Sod/ Tazobactam Sod 3.375 gm ZOSY12 IVPB; Start 05/02/24 at 21:00; Stop 05/02/24 at 18:02; Status DC Acetaminophen 500 mg Q6H PRN PO; Start 05/02/24 at 18:00; Stop 05/05/24 at 17:44; Status DC Ondansetron HCl 4 mg Q6H PRN IVP; Start 05/02/24 at 18:00; Stop 05/05/24 at 17:44; Status DC Hydralazine HCl 10 mg Q6H PRN IV; Start 05/02/24 at 18:00; Stop 05/05/24 at 17:44; Status DC Pantoprazole Sodium 40 mg Q24H IVP Last administered on 05/04/24at 16:26; Start 05/02/24 at 18:00; Stop 05/05/24 at 17:44; Status DC Piperacillin Sod/ Tazobactam Sod 3.375 gm Q12H IVPB Last administered on 05/02/24at 20:49; Start 05/02/24 at 18:30; Stop 05/02/24 at 23:59; Status DC Piperacillin Sod/ Tazobactam Sod 3.375 gm ZOSY12 IVPB Last administered on 05/04/24at 08:54; Start 05/03/24 at 09:00; Stop 05/04/24 at 09:56; Status DC Sodium Bicarbonate 650 mg BID PO Last administered on 05/05/24at 08:49; Start 05/02/24 at 21:00; Stop 05/05/24 at 17:44; Status DC Nifedipine 90 mg DAILY PO Last administered on 05/05/24at 08:48; Start 05/03/24 at 09:00; Stop 05/05/24 at 17:44; Status DC Nifedipine 30 mg ONCE PO Last administered on 05/02/24at 20:49; Start 05/02/24 at 21:00; Stop 05/02/24 at 23:59; Status DC Insulin Human Regular INSULIN SLIDING SCAL... ACHS SQ Last administered on 05/03/24at 21:14; Start 05/03/24 at 07:30; Stop 05/03/24 at 21:37; Status DC Levothyroxine Sodium 50 mcg DAILY@0630 PO Last administered on 05/05/24at 06:04; Start 05/03/24 at 06:30; Stop 05/05/24 at 17:44; Status DC Losartan Potassium 50 mg BID PO Last administered on 05/03/24at 10:07; Start 05/03/24 at 09:30; Stop 05/05/24 at 17:44; Status DC Losartan Potassium 50 mg BID PO; Start 05/03/24 at 21:00; Stop 05/03/24 at 09:32; Status DC Dexamethasone Sodium Phosphate 20 mg Q24H IV; Start 05/03/24 at 13:30; Stop 05/03/24 at 13:09; Status DC Dexamethasone Sodium Phosphate 20 mg/Sodium Chloride 50 ml @ 100 mls/hr Q24H IV Last administered on 05/05/24at 13:06; Start 05/03/24 at 13:30; Stop 05/05/24 at 17:44; Status DC Insulin Human Regular INSULIN SLIDING SCAL... ACHS SQ Last administered on 05/05/24at 06:01; Start 05/04/24 at 07:30; Stop 05/05/24 at 17:44; Status DC Piperacillin Sod/ Tazobactam Sod 3.375 gm Q12H IV Last administered on 05/05/24at 08:53; Start 05/04/24 at 10:00; Stop 05/05/24 at 17:44; Status DC Fentanyl Citrate 100 mcg STK-MED ONCE .ROUTE; Start 05/04/24 at 11:12; Stop 05/04/24 at 11:13; Status DC Midazolam HCl 2 mg STK-MED ONCE .ROUTE; Start 05/04/24 at 11:12; Stop 05/04/24 at 11:13; Status DC ANNA MARIE SQUIRES MD May 05, 2024 18:48
--- NOTE | 2024-05-06 07:44 | DS ---
Discharge Summary Hospital Course Summary: Date of service 05/05/2024 The patient admitted to hospital May 02, 2024 with the following history present illness: 83-year-old female with history of hypertension, hyperlipidemia, stage 3 chronic kidney disease, type 2 diabetes mellitus, history of recurrent anemia requiring blood transfusions, with concerns for plasma cell dyscrasia/multiple myeloma who presented to the ER for further evaluation of generalized fatigue, malaise, fevers, chills and poor oral intake. Patient was hospitalized on 11/2023 with acute on chronic anemia requiring blood transfusion, and was undergoing further workup for multiple myeloma/plasma cell dyscrasia. Patient was followed by Dr. López on last hospitalization. 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 On presentation to the hospital, patient was noted to be febrile with T-max of 102.0 F, heart rate of 80, blood pressure of 159/57 saturating 97% on room air. Chest x-ray showed cardiomegaly with no significant infiltrates. [place] [address], hemoglobin of 6.2, hematocrit of 20.2, platelet count of 710652. CMP remarkable for sodium of 135, potassium 4.5, CO2 of 21, BUN of 33, creatinine 2.3, TSH of 10.4. Patient was admitted to the progressive care unit, placed on broad-spectrum IV antibiotics, results of septic workup with the coli ESBL, patient is started on meropenem, infectious disease consultation requested, recommendations were followed. During the course of the hospitalization oncology and carton inspector consultation requested. Patient underwent bone marrow biopsy by IR 05/04/2024, tolerated the procedure well. SPEP, UPEP and free light chain was ordered which was positive for IgG lambda light chain. Patient medically stable okay for the patient to be discharged home from Hematology point of view and follow up as an outpatient. As of 05/05/2024, patient alert oriented x3, denies dizziness, no headache, no blurry vision, no chest pain, no shortness a breath, no nausea, no vomiting, no abdominal pain, diarrhea, constipation, no melena, no hematochezia, no hematemesis, no hematuria, no dysuria Welt Cutter(s): Infectious Disease, Hematology, carton inspector. Assessment/Plan: Final diagnosis Acute on chronic normocytic anemia, POA Sepsis, 2/2 complicated UTI, POA Complicated UTI, secondary to E coli ESBL POA Acute on chronic renal failure, POA Rule out plasma cell dyscrasia/multiple myeloma, POA Hypothyroidism new diagnosis, POA Debility/frailty, POA History of anemia requiring blood transfusions, POA Hypertension, POA Intermittent history of epistaxis, POA Hyperlipidemia, POA Type 2 diabetes mellitus, POA Mild hyponatremia, POA History of [id number]-funyokyw mitral valve regurgitation, POA History of moderate tricuspid regurgitation, POA Left adrenal mass, POA Discharge Instructions: Patient instructed to follow up with the kiln car unloader as well as he carton inspector as an outpatient and to return to the hospital if condition changes. Patient agreed with plan understood the information provided. Home Medications: Active Scripts Levothyroxine Sodium (Synthroid 50 Mcg Tab) 50 Mcg Tablet, 50 MCG PO DAILY@0630 for 60 Days, #30 TAB 1 Refill Prov:KARIME GARCIA MD 05/05/24 Nifedipine (Nifedipine ER) 30 Mg Tab.er.24, 90 MG PO DAILY, #60 TAB Prov:KIMMY BREAUX MANAGER FLORAL 12/02/23 Sodium Bicarbonate (Sodium Bicarbonate) 650 Mg Tablet, 650 MG PO BID, #60 TAB 0 Refills Prov:MILES JIMÉNEZ MD 08/10/23 Losartan Potassium (Cozaar) 50 Mg Tablet, 50 MG PO BID, #60 TAB 0 Refills Prov:MILES JIMÉNEZ MD 08/10/23 Cyanocobalamin/Folic Acid (Vitamin Y90-Hkqnf Acid Tablet) 1 Each Tablet, 1 EACH PO DAILY for 30 Days, #30 TAB Prov:SLOANE BAXTER NP 07/22/22 Reported Medications Metformin HCl (Metformin HCl) 500 Mg Tablet, 1 TAB PO DAILY for 30 Days, #60 TAB 0 Refills 05/02/24 Nifedipine (Nifedipine ER) 90 Mg Tablet.er, 1 TAB PO DAILY for 30 Days, #30 TAB 0 Refills 05/02/24 Sodium Bicarbonate (Sodium Bicarbonate) 650 Mg Tablet, 1 TAB PO BID for indigestion for 30 Days, #60 TAB 0 Refills 05/02/24 Pregabalin (Pregabalin) 25 Mg Capsule, 1 CAP PO TID PRN for PAIN MDD 3 Capsule(s) for 30 Days, #90 CAP 0 Refills 05/02/24 Ferrous Sulfate (Ferrous Sulfate) 325 Mg Ectab, 325 MG PO AM, TAB.EC 12/30/21 Time spent arranging discharge: 31-60 minutes KARIME GARCIA MD May 06, 2024 07:44
== END 2024-05-05 17:30 | disposition home or self-care (01) | DRG 872 ==
LOC: EDH 13:45 → EDHIP 13:46 → 2AH 22:24
PROVIDERS: ADMIT Internal Medicine; ATTEND Internal Medicine
PROC: 30233N1 Transfusion of Nonautologous Red Blood Cells into Peripheral Vein, Percutaneous Approach (ICD-10-PCS; 2024-05-02)
PROC: 07DR3ZX Extraction of Iliac Bone Marrow, Percutaneous Approach, Diagnostic (ICD-10-PCS; principal; 2024-05-04)
DX: A41.9 Sepsis, unspecified organism (principal); N39.0 Urinary tract infection, site not specified; N17.9 Acute kidney failure, unspecified; N18.4 Chronic kidney disease, stage 4 (severe); E87.1 Hypo-osmolality and hyponatremia; C90.00 Multiple myeloma not having achieved remission; Z20.822 Contact with and (suspected) exposure to COVID-19; D63.1 Anemia in chronic kidney disease; R54 Age-related physical debility; E78.5 Hyperlipidemia, unspecified; I12.9 Hypertensive chronic kidney disease with stage 1 through stage 4 chronic kidney disease, or unspecified chronic kidney disease; E27.9 Disorder of adrenal gland, unspecified; B96.20 Unspecified Escherichia coli [E. coli] as the cause of diseases classified elsewhere; D69.6 Thrombocytopenia, unspecified; E03.9 Hypothyroidism, unspecified; E11.22 Type 2 diabetes mellitus with diabetic chronic kidney disease; I08.1 Rheumatic disorders of both mitral and tricuspid valves; K59.00 Constipation, unspecified; R62.7 Adult failure to thrive; Z79.4 Long term (current) use of insulin; Z79.899 Other long term (current) drug therapy
CPT/HCPCS: 36415; 36430; 36600; 38222; 71045; 73502; 74176; 76942; 80048; 80053; 80076; 81001; 82088; 82232; 82607; 82728; 82746; 82803; 82948; 83036; 83540; 83550; 83605; 83615; 83735; 83835; 84100; 84145; 84156; 84166; 84244; 84439; 84443; 84481; 84550; 85014; 85018; 85025; 85027; 85610; 85651; 85730; 86140; 86156; 86334; 86850; 86870; 86880; 86900; 86901; 86923; 87040; 87086; 87186; 87426; 87804; 87880; 88184; 88185; 88189; 93306; 93356; 96365; 96375; 99152; 99153; 99285; G0378; J0696; J1100; J1815; J2250; J2470; J2543; J3010; J7030; P9016; C1830; G0500

== ENCOUNTER 2024-07-04 22:38 | Emergency (ER) | payer MEDICAID ==
[~2024-07-04] VITALS: Ht 147.3 cm; Wt 57.2 kg
[~2024-07-04 22:38] MED LIST changes: -AZIT250T PO; -GABA-529 PO; +LEVO50TA4 PO; -MONT-46 PO; -PANT40TA PO; +PREG25CA19 PO
[2024-07-04] MEDS ORDERED: IOHEXOL-350 75 ML VIAL IV ONE (23:01)
[2024-07-04 23:13] LABS: APPEARANCE,URINE CLEAR (CLEAR); BILIRUBIN,URINE NEGATIVE (NEGATIVE); COLOR,URINE COLORLESS (YELLOW); GLUCOSE, URINE (UA) NEGATIVE (NEGATIVE); KETONES,URINE NEGATIVE (NEGATIVE); LEUKOCYTE ESTERASE ,URINE NEGATIVE Leu/uL (NEGATIVE); NITRATE,URINE NEGATIVE (NEGATIVE); OCCULT BLOOD,URINE NEGATIVE (NEGATIVE); PH,URINE 5.5 (5.0-8.0); PROTEIN,URINE 10 mg/dL (NEGATIVE); UROBILINOGEN,URINE 0.2 mg/dL (0.2-1.0)
[2024-07-04 23:14] LABS: ADD UA MICROSCOPIC YES
[2024-07-04 23:23] LABS: BACTERIA,URINE FEW /HPF (None Seen); RBC,URINE 0-1 /HPF (0-1); SQUAMOUS EPITHELIAL CELL,UR RARE /HPF (0-2)
[2024-07-04 23:29] LABS: BASOPHILS # (AUTO) 0.06 K/uL (0.00-0.20); EOSINOPHILS # (AUTO) 0.27 K/uL (0.00-0.70); EOSINOPHILS % (AUTO) 4.5 % (0.0-8.0); HEMATOCRIT 23.3 % (36-48); IMMATURE GRANULOCYTE ABSOLUTE 0.28 K/uL (0-1); LYMPHOCYTES # (AUTO) 1.7 K/uL (1.0-4.8); LYMPHOCYTES % (AUTO) 28.7 % (21.0-51.0); MEAN CORPUSCULAR HEMOGLOBIN 28.9 pg (27.0-33.0); MEAN CORPUSCULAR HGB CONC 31.8 g/dL (32.0-36.0); MONOCYTES # (AUTO) 0.4 K/uL (0.1-1.0); MONOCYTES % (AUTO) 7.2 % (3.0-13.0); NEUTROPHILS # (AUTO) 3.2 K/uL (1.8-7.7); NEUTROPHILS % (AUTO) 53.9 % (40.0-77.0); PLATELET COUNT (AUTO) 160 K/uL (130-400); RED BLOOD CELL COUNT(AUTO) 2.56 MIL/uL (4.00-5.50); RED CELL DISTRIBUTION WIDTH 19.8 % (11.0-15.5)
[2024-07-04 23:40] LABS: CARBON DIOXIDE 22 mmol/L (21-32); CHLORIDE 104 mmol/L (101-111); CREATININE 2.1 mg/dL (0.5-1.0); GLOMERULAR FILTR. RATE CALC 23 mL/min (>90); GLUCOSE,RANDOM 108 mg/dL (70-105); POTASSIUM 4.6 mmol/L (3.5-5.1); SODIUM SERUM 136 mmol/L (136-145); UREA NITROGEN, BLOOD 37 mg/dL (7-18)
[2024-07-04 23:45] LABS: ALANINE AMINOTRANSFERASE 10 U/L (12-78); ASPARTATE AMINOTRANSFERASE 15 U/L (10-37); BILIRUBIN,DIRECT < 0.1 mg/dL (0.0-0.3); BILIRUBIN,TOTAL 0.1 mg/dL (0.2-1.0); TOTAL PROTEIN, SERUM 11.9 g/dL (6.0-8.3)
--- NOTE | 2024-07-05 00:17 | ERN ---
General Chief Complaint: Abdominal Pain Stated Complaint: ABD PAIN Time Seen by MD: 22:40 History of Present Illness Initial Comments 83-year-old female presents for left anterior rib pain which radiates to the posterior ribs. Increase with movement and palpation. Denies any systemic signs or symptoms. Symptoms began today. She denies trauma. No cough or congestion. No chest pain. Allergies: Coded Allergies: Penicillins (Unverified Allergy, Intermediate, RASH, 05/02/24) Home Meds Active Scripts Nifedipine (Nifedipine ER) 30 Mg Tab.er.24, 90 MG PO DAILY, #60 TAB Prov:KIMMY BREAUX FISH NET STRINGER 12/02/23 Reported Medications Sodium Bicarbonate (Sodium Bicarbonate) 650 Mg Tablet, 1 TAB PO BID for indiges tion for 30 Days, #60 TAB 0 Refills 05/02/24 Discontinued Reported Medications Metformin HCl (Metformin HCl) 500 Mg Tablet, 1 TAB PO DAILY for 30 Days, #60 TAB 0 Refills 05/02/24 Nifedipine (Nifedipine ER) 90 Mg Tablet.er, 1 TAB PO DAILY for 30 Days, #30 TAB 0 Refills 05/02/24 Pregabalin (Pregabalin) 25 Mg Capsule, 1 CAP PO TID PRN for PAIN MDD 3 Capsule(s) for 30 Days, #90 CAP 0 Refills 05/02/24 Ferrous Sulfate (Ferrous Sulfate) 325 Mg Ectab, 325 MG PO AM, TAB.EC 12/30/21 Discontinued Scripts Levothyroxine Sodium (Synthroid 50 Mcg Tab) 50 Mcg Tablet, 50 MCG PO DAILY@0630 for 60 Days, #30 TAB 1 Refill Prov:KARIME GARCIA MD 05/05/24 Sodium Bicarbonate (Sodium Bicarbonate) 650 Mg Tablet, 650 MG PO BID, #60 TAB 0 Refills Prov:MILES JIMÉNEZ MD 08/10/23 Losartan Potassium (Cozaar) 50 Mg Tablet, 50 MG PO BID, #60 TAB 0 Refills Prov:MILES JIMÉNEZ MD 08/10/23 Cyanocobalamin/Folic Acid (Vitamin T01-Syjtg Acid Tablet) 1 Each Tablet, 1 EACH PO DAILY for 30 Days, #30 TAB Prov:SLOANE BAXTER NP 07/22/22 Past Medical History Past Medical History: Anemia, Diabetes-Type II, Hypertension Past Surgical History: None Social History Social History: Negative, Lives with family Female( History) History: Not Applicable ROS Dictation CONSTITUTIONAL: No chills, no fever, no weakness, no diaphoresis, no malaise. HEAD/FACE: No signs of trauma. EENT: No eye pain, no blurred vision, no tearing, no double vision, no ear pain, no ear discharge, no nose pain, no nasal congestion, no throat pain, no throat swelling, no mouth pain. RESPIRATORY: No cough, no orthopnea, no SOB, no stridor, no wheezing. CARDIOVASCULAR: No chest pain, no edema, no palpitations, no syncope. GASTROINTESTINAL/ABDOMINAL: No abdominal pain, no constipation, no diarrhea, no nausea, no vomiting. GENITOURINARY: No abnormal discharge, no dysuria, no frequent urination, no hematuria. No complaints of pain in the genitals. MUSCULOSKELETAL: No back pain, no gout, no joint pain, no joint swelling, no muscle pain, no muscle stiffness, no neck pain. INTEGUMENTARY: No change in color, no change in hair/nails, no dryness, no lesion, no lumps, no rash. NEUROLOGICAL/PSYCH: No anxiety, not depressed, no emotional problem, no headache, no numbness, no pre-existing deficit, no history of seizures, no tremors, no weakness. HEMATOLOGIC/LYMPHATIC: Not anemic, no history of blood clots, no apparent bleeding, no bruising, glands not swollen. All Systems Negative, Except as Noted. Physical Exam Physical Exam Dictation VITAL SIGNS: Reviewed. GENERAL APPEARANCE: Alert, oriented x3, no acute distress. HEAD AND FACE: Non-traumatic. EYES: PERRL, pink conjunctivas, eyelid no trauma, anterior chamber clear. EARS: Pinnas intact and no signs of trauma or erythema. Ear canals clear and no discharge. TMs no erythema. NOSE: No discharge, no bleeding. OROPHARYNX: Mouth normal, teeth no caries, tongue pink. Pharynx clear, no erythema. Tonsils no exudates, no abscesses noted. Mucous membrane moist. NECK: Supple, non-tender, no thyromegaly, no masses, no JVD, no bruits. BREAST: Deferred. CHEST: No tenderness, no crepitus, no paradoxical movement, no retractions. LUNGS: Clear, well-ventilated, symmetric, no rales, no wheezing, no rhonchi, no stridor, good breath sounds bilaterally. HEART: Regular rate, regular rhythm, no murmur, no gallops. VASCULAR: No peripheral edema. ABDOMEN: Soft, positive bowel sounds, nondistended, no guarding, nontender, no rebound, no masses no hepatomegaly, no splenomegaly, no Denise's sign, no hernias. RECTAL: Deferred. GENITAL: Deferred. NEUROLOGICAL: Normal speech, gross motor function intact, gross sensory function intact. MUSCULOSKELETAL: Neck nontender, full range of motion, back nontender, full range of motion. EXTREMITIES: Nontender, full range of motion. SKIN: Color pink, dry, no turgor, no rash, no lacerations, no abrasions, no contusions. LYMPHATICS: Deferred. Results Laboratory and Microbiology Lab and Micro Result Laboratory Tests Test 07/04/24 22:48 07/04/24 23:16 Urine Color COLORLESS (YELLOW) Urine Appearance CLEAR (CLEAR) Urine pH 5.5 (5.0-8.0) Urine Specific [place] 1.009 (1.001-1.031) Urine Protein 10 mg/dL (NEGATIVE) H Urine Glucose (UA) NEGATIVE mg/dL (NEGATIVE) Urine Ketones NEGATIVE mg/dL (NEGATIVE) Urine Occult Blood NEGATIVE (NEGATIVE) Urine Nitrate NEGATIVE (NEGATIVE) Urine Bilirubin NEGATIVE mg/dL (NEGATIVE) Urine Urobilinogen 0.2 mg/dL (0.2-1.0) Urine Leukocyte Esterase NEGATIVE Sergey/uL Urine RBC 0-1 /HPF (0-1) Urine WBC 2-5 /HPF (0-1) H Urine Squamous Epithelial Cells RARE /HPF (0-2) Urine Bacteria FEW /HPF (None Seen) White Blood Count 6.0 K/uL (4.8-10.8) Red Blood Count 2.56 MIL/uL (4.00-5.50) L Hemoglobin 7.4 g/dL (12.0-16.0) L Hematocrit 23.3 % (36-48) L Mean Corpuscular Volume 91.0 fL (79-99) Mean Corpuscular Hemoglobin 28.9 pg (27.0-33.0) Mean Corpuscular Hemoglobin Concent 31.8 g/dL (32.0-36.0) L Red Cell Distribution Width 19.8 % (11.0-15.5) H Platelet Count 160 K/uL (130-400) Mean Platelet Volume 9.2 fL (7.5-10.5) Immature Granulocyte % (Auto) 4.7 % (0-1) H Neutrophils (%) (Auto) 53.9 % (40.0-77.0) Lymphocytes (%) (Auto) 28.7 % (21.0-51.0) Monocytes (%) (Auto) 7.2 % (3.0-13.0) Eosinophils (%) (Auto) 4.5 % (0.0-8.0) Basophils (%) (Auto) 1.0 % (0.0-5.0) Neutrophils # (Auto) 3.2 K/uL (1.8-7.7) Lymphocytes # (Auto) 1.7 K/uL (1.0-4.8) Monocytes # (Auto) 0.4 K/uL (0.1-1.0) Eosinophils # (Auto) 0.27 K/uL (0.00-0.70) Basophils # (Auto) 0.06 K/uL (0.00-0.20) Absolute Immature Granulocyte (auto 0.28 K/uL (0-1) Nucleated Red Blood Cells 4.0 % (0.0-0.19) H Red Blood Cell Morphology See comments Sodium Level 136 mmol/L (136-145) Potassium Level 4.6 mmol/L (3.5-5.1) Chloride Level 104 mmol/L (101-111) Carbon Dioxide Level 22 mmol/L (21-32) Blood Urea Nitrogen 37 mg/dL (7-18) H Creatinine 2.1 mg/dL (0.5-1.0) H Glomerular Filtration Rate Calc 23 mL/min (>90) Random Glucose 108 mg/dL (70-105) H Total Calcium 9.0 mg/dL (8.5-10.1) Total Bilirubin 0.1 mg/dL (0.2-1.0) L Direct Bilirubin < 0.1 mg/dL (0.0-0.3) Aspartate Amino Transf (AST/SGOT) 15 U/L (10-37) Alanine Aminotransferase (ALT/SGPT) 10 U/L (12-78) L Alkaline Phosphatase 62 U/L (50-136) Troponin I High Sensitivity 16 ng/L (4-50) Total Protein 11.9 g/dL (6.0-8.3) H Albumin 2.0 g/dL (3.5-5.0) L Lipase 97 U/L (16-77) H MDM CC: Left-sided abdominal pain Historian: Patient Comorbidities: Advanced age, anemia, diabetes type 2, hypertension Limitations by social determinants of health: None Vital signs: Stable, remained stable in the ER. Labs: Labs: No leukocytosis. Normocytic anemia hemoglobin 7.4. Chemistry shows creatinine 2.1 BUN at 37. Total protein is elevated, lipase mildly elevated, low albumin. Urinalysis unremarkable. CT abdomen/pelvis without contrast: [place] herbal per my independent int erpretation. No. Or surgical pathology. Based on the clinical presentation, I suspect with the patient was musculoskeletal/rib pain. There was no signs of intra-abdominal pathology, has no other systemic signs or symptoms or illness. Patient was given an IV Toradol shot and lidocaine patch. On re-evaluation the patient reports improvement of pain and discomfort. I will DC the patient on NSAIDs recommend PCP follow up. REASON: ABDOMINAL PAIN ORDERING PHYSICIAN: GIBRAN JAVIER DO PROCEDURE: ABD PEL WO - CT ABDOMEN/PELVIS W/O CONTRAST CT ABDOMEN/PELVIS W/O CONTRAST HISTORY: Abdominal pain COMPARISON: 05/02/2024 TECHNIQUE: Multiple sequential axial images of the abdomen and pelvis were obtained from the dome of the diaphragm through symphysis pubis. Patient was not given contrast through intravenous route. Oral contrast was not given. FINDINGS: No pleural effusion is seen bilaterally. There is no evidence of parenchymal disease or pulmonary nodule of the visualized lower lungs. Degenerative changes of the thoracolumbar spine are present. The heart is not enlarged. Coronary arterial calcifications are seen. Gallbladder is contracted. Liver measures 15 cm. There is left adrenal mass measuring 3.5 x 2.8 cm. This was also seen on previous study. Mild small bowel dilatation seen with fluid-filled may be related to enteritis. The liver, spleen, right adrenal gland and pancreas are unremarkable. There is no evidence of hydronephrosis bilaterally. No evidence of renal stone is seen. Fecal material is seen in the colon. There are normal size retroperitoneal and mesenteric lymph nodes. No ascites is seen. Atherosclerotic changes are present. Appendix is not seen limiting evaluation. Uterus is prominent for patient's age. Pelvic sidewalls are symmetric bilaterally. Bladder is well distended without wall thickening. IMPRESSION: 1. There is left adrenal mass measuring 3.5 x 2.8 cm. This was also seen on previous study. Mild small bowel dilatation seen with fluid-filled may be related to enteritis. ED Course Orders Procedure Category Date Status Time Urinalysis Profile LAB 07/04/24 Complete 22:42 Cbc With Differential LAB 07/04/24 Complete 22:42 Basic Metabolic Panel LAB 07/04/24 Complete 22:42 Lipase LAB 07/04/24 Complete 22:42 Hepatic Function Panel LAB 07/04/24 Complete 22:42 Troponin I High LAB 07/04/24 Complete Sensitivity 22:42 12 Lead Ekg Tracing- EKG 07/04/24 Logged Technical 22:42 Iohexol (Omnipaque) PHA 07/04/24 Complete 23:01 Ct Abdomen/Pelvis W/O CT 07/04/24 Resulted Contrast 23:49 Lidocaine (Lidocaine PHA 07/05/24 Complete Patch 4%) 00:30 Ketorolac PHA 07/05/24 Complete Tromethamine 15mg/Ml 00:30 Current Medications Medications (Trade) Dose Ordered Sig/Mare Route PRN Reason Start Time Stop Time Status Last Admin Dose Admin Iohexol (Omnipaque) 75 ml STK-MED ONCE IV 07/04/24 23:01 07/04/24 23:01 DC Ketorolac Tromethamine (toRADol) 15 mg ONCE ONCE IV 07/05/24 00:30 07/05/24 00:31 DC 07/05/24 00:54 Lidocaine (Lidocaine Patch 4%) 1 each ONCE ONCE TP 07/05/24 00:30 07/05/24 00:31 DC 07/05/24 00:54 Vital Signs Date Time Temp Pulse Resp B/P (MAP) Pulse Ox O2 Delivery O2 Flow Rate FiO2 07/04/24 23:19 98.1 78 22 164/61 99 Room Air* 0 21 07/04/24 22:39 98.2 86 16 156/58 99 Room Air DX & DISP Disposition: Discharge Departure Condition: Stable Scripts Lidocaine (Lidocaine Pain Relief) 4 % Adh..patch 1 EACH TP BID PRN for PAIN for 10 Days, #10 ADH.PATCH Prov: GIBRAN JAVIER DO 07/05/24 Meloxicam (Meloxicam) 15 Mg Tablet 15 MG PO DAILY PRN for PAIN for 10 Days, #10 TAB Prov: GIBRAN JAVIER DO 07/05/24 Additional Instructions: Your symptoms are consistent with musculoskeletal type pain or ribs sprain/strain. Your vital signs have been stable here in the ER. Your lab work (CBC, BMP, troponin, lipase, liver function test, urinalysis) shows anemia (hemoglobin 7.4) and mild decrease of your kidney function (creatinine 2.1). These values are baseline for you based on previous labs. Otherwise your labs are unremarkable. The CT scan of your abdomen and pelvis does not show any acute abnormalities for dangerous findings. I have prescribed meloxicam, which is an anti-inflammatory pain medication. You can take this once per day for the next week or so. I also recommend he apply lidocaine patches to the affected area. Please follow up with the primary doctor if you continue with symptoms after a few days. Return to the emergency department as needed. Referrals: SANDOVAL FENTON MD (PCP) GIBRAN JAVIER DO Jul 05, 2024 00:17
[2024-07-05] MEDS: LIDOCAINE 4% ADH..PATCH TP ONE (00:54)
[2024-07-05] MEDS: ketOROlac 15MG/ML VIAL (15MG/ML) IV ONE (00:54)
--- NOTE | 2024-07-05 00:57 | HMCIMG ---
CT ABDOMEN/PELVIS W/O CONTRAST HISTORY: Abdominal pain COMPARISON: 05/02/2024 TECHNIQUE: Multiple sequential axial images of the abdomen and pelvis were obtained from the dome of the diaphragm through symphysis pubis. Patient was not given contrast through intravenous route. Oral contrast was not given. FINDINGS: No pleural effusion is seen bilaterally. There is no evidence of parenchymal disease or pulmonary nodule of the visualized lower lungs. Degenerative changes of the thoracolumbar spine are present. The heart is not enlarged. Coronary arterial calcifications are seen. Gallbladder is contracted. Liver measures 15 cm. There is left adrenal mass measuring 3.5 x 2.8 cm. This was also seen on previous study. Mild small bowel dilatation seen with fluid-filled may be related to enteritis. The liver, spleen, right adrenal gland and pancreas are unremarkable. There is no evidence of hydronephrosis bilaterally. No evidence of renal stone is seen. Fecal material is seen in the colon. There are normal size retroperitoneal and mesenteric lymph nodes. No ascites is seen. Atherosclerotic changes are present. Appendix is not seen limiting evaluation. Uterus is prominent for patient's age. Pelvic sidewalls are symmetric bilaterally. Bladder is well distended without wall thickening. IMPRESSION: 1. There is left adrenal mass measuring 3.5 x 2.8 cm. This was also seen on previous study. Mild small bowel dilatation seen with fluid-filled may be related to enteritis. CT was performed with one or more following dose reduction techniques: automated exposure control, adjustment of the mA and kv according to patient's size, or use of a iterative reconstruction technique.
[2024-07-05 01:00] VITALS: BP 159/74; PULSE 78; RESP 16; TEMP 98; O2SAT 99
[2024-07-05] MEDS ORDERED: LIDO1ADH71 TP (01:19)
[2024-07-05] MEDS ORDERED: MELO-108 PO (01:19)
--- NOTE | 2024-07-05 06:44 | EKG ---
[facility] Test Date: 2024-07-04 Test Time: 23:20:15 Pat Name: RICHIE JAMES Department: ED Room: Gender: F Track Hoe Operator: [id number] : [id number] Requested By: GIBRAN JAVIER Order Number: [id number] Reading MD: Kelli Reddy Measurements Intervals [place] Rate: 73 P: 45 KS: 342 QRS: -56 QRSD: 136 T: 26 QT: 441 QTc: 488 Interpretive Statements Sinus rhythm Prolonged KS interval RBBB and LAFB Left ventricular hypertrophy Compared to ECG 11/26/2023 16:30:34 ST (T wave) deviation no longer present Electronically Signed On 07-05-2024 09:18:00 FINE ARTIST by Kelli Reddy Please click the below link to view image of tracing.
== END 2024-07-05 01:45 | disposition home or self-care (01) ==
LOC: EDH 22:38
DX: R07.81 Pleurodynia (principal); D64.9 Anemia, unspecified; E11.9 Type 2 diabetes mellitus without complications; I10 Essential (primary) hypertension; Z79.84 Long term (current) use of oral hypoglycemic drugs; Z79.890 Hormone replacement therapy; Z79.899 Other long term (current) drug therapy; Z88.0 Allergy status to penicillin
CPT/HCPCS: 99285; 74176; 80076; 84484; 80048; 83690; 85025; 81001; 36415; 93005; 96374; Q9967; J1885

== ENCOUNTER 2024-09-06 21:15 | Inpatient (IN) | payer SELFPAY ==
[~2024-09-06] VITALS: Ht 149.9 cm; Wt 57.4 kg
[~2024-09-06 21:15] MED LIST changes: -CYAN1TAB44 PO; -FERS325 PO; -LEVO50TA4 PO; +LIDO1ADH71 TP; -LOSA-418 PO; +MELO-108 PO; -METF-444 PO; -NIFE90TA72 PO; -PREG25CA19 PO
[2024-09-06 22:33] LABS: BASOPHILS # (AUTO) 0.06 K/uL (0.00-0.20); BASOPHILS % (AUTO) 0.8 % (0.0-5.0); EOSINOPHILS # (AUTO) 0.15 K/uL (0.00-0.70); EOSINOPHILS % (AUTO) 2.1 % (0.0-8.0); HEMATOCRIT 22.6 % (36-48); IMMATURE GRANULOCYTE ABSOLUTE 0.28 K/uL (0-1); LYMPHOCYTES # (AUTO) 1.3 K/uL (1.0-4.8); LYMPHOCYTES % (AUTO) 17.9 % (21.0-51.0); MEAN CORPUSCULAR HEMOGLOBIN 30.4 pg (27.0-33.0); MEAN CORPUSCULAR HGB CONC 31.9 g/dL (32.0-36.0); MEAN CORPUSCULAR VOLUME 95.4 fL (79-99); MONOCYTES # (AUTO) 0.4 K/uL (0.1-1.0); NEUTROPHILS % (AUTO) 69.3 % (40.0-77.0); NUCLEATED RED BLOOD CELLS 3.9 % (0.0-0.19); PLATELET COUNT (AUTO) 148 K/uL (130-400); RED BLOOD CELL COUNT(AUTO) 2.37 MIL/uL (4.00-5.50); RED CELL DISTRIBUTION WIDTH 17.4 % (11.0-15.5); WHITE BLOOD COUNT (AUTO) 7.2 K/uL (4.8-10.8)
--- NOTE | 2024-09-06 22:42 | ERN ---
ED Note History of Present Illness Stated Complaint: FEVER ABD PAIN Chief Complaint: Abdominal Pain Time Seen by MD: 21:24 Time Seen by Midlevel: 21:24 Dictation: The patient is an 83-year-old female with a history of diabetes, hypertension, anemia who presents to the emergency department with complaints of fevers, periumbilical abdominal pain onset Friday. Patient denies any nausea or vomiting, denies diarrhea, or constipation. Reports that she initially had painful urination on Friday. Allergies: Coded Allergies: Penicillins (Unverified Allergy, Intermediate, RASH, 05/02/24) Home Meds Active Scripts Lidocaine (Lidocaine Pain Relief) 4 % Adh..patch, 1 EACH TP BID PRN for PAIN for 10 Days, #10 ADH.PATCH Prov:GIBRAN JAVIER DO 07/05/24 Meloxicam (Meloxicam) 15 Mg Tablet, 15 MG PO DAILY PRN for PAIN for 10 Days, #10 TAB Prov:GIBRAN JAVIER DO 07/05/24 Nifedipine (Nifedipine ER) 30 Mg Tab.er.24, 90 MG PO DAILY, #60 TAB Prov:KIMMY BREAUX [employer]SE SUPERVISOR 12/02/23 Reported Medications Sodium Bicarbonate (Sodium Bicarbonate) 650 Mg Tablet, 1 TAB PO BID for indigestion for 30 Days, #60 TAB 0 Refills 05/02/24 Past Medical History Past Medical History: Diabetes-Type II, Hypertension Surgical History: None Social History: Negative, Lives with family History: Not Applicable RN Note Reviewed/Agreed w/PFSH: Yes Review of System Dictation Constitutional: Negative for chills, and weight loss positive for fever Eyes: Negative for injury, pain,redness, and discharge ENT: Negative for injury,pain or swelling Cardiovascular: Negative for chest pain, palpitations, and edema Respiratory: Negative for shortness of breath, cough, and wheezing, Abdomen/GI: Negative for nausea, vomiting, diarrhea, and constipation positive for abdominal pain Back: Negative for injury and pain : Negative for injury, bleeding and discharge MS/Extremity: Negative for injury and deformity Skin: Negative for rash, and discoloration Neuro: Negative for headache, weakness, numbness, tingling, and seizure Psych: Negative for suicide ideation, homicidal ideation, and hallucinations Initial Vital Sign VS Vital Signs Date Time Temp Pulse Resp B/P (MAP) Pulse Ox O2 Delivery O2 Flow Rate FiO2 09/06/24 21:38 101.1 93 20 204/76 98 Room Air 09/06/24 23:26 0 21 Physical Exam Dictation Vital Signs reviewed General Appearance: Alert, oriented x 3, no acute distress, well developed, nourished. Head and Face: non-traumatic. Eyes: PERRL, pink conjunctivas, eyelid no trauma, anterior chamber with arcus senilis. Ears: Pinnas intact and no signs of trauma or erythema ear canals clear and no discharge TM no erythema Nose: No discharge, no bleeding. Oropharynx: Mouth normal, tongue pink. pharynx clear,no erythema, tonsils no exudates, no abscesses noted, mucous membrane moist Neck: Supple, non-tender, no thyromegaly, no masses, no JVD, no bruits Breast:Deferred Chest:No tenderness, no crepitus, no paradoxical movement, no retractions Lungs:Clear, well-ventilated, symmetric, no rales, no wheezing, no rhonchi, no stridor, good breath sounds bilaterally Heart: Regular rate, regular rhythm, no murmur, no gallops Vascular: no peripheral edema, Abdomen: Soft, positive bowel sounds, nondistended, no guarding, nontender, no rebound, no masses no hepatomegaly, no splenomegaly, no Denise's sign, no hernias. Rectal: Deferred Genital: Deferred Neurological: Normal speech, motor function intact, sensory function intact Musculoskeletal: Neck nontender, full range of motion, back nontender, full range of motion, Extremities: nontender, full range of motion Skin: Color pink, dry, no turgor, no rash, no lacerations, no abrasions, no contusions. Lymphatic: Deferred Results (Laboratory/Radiology) Laboratory/Radiology Laboratory Tests Test 09/06/24 21:50 09/06/24 22:14 Urine Color LIGHT-YELLOW (YELLOW) Urine Appearance CLEAR (CLEAR) Urine pH 5.5 (5.0-8.0) Urine Specific [place] 1.011 (1.001-1.031) Urine Protein 50 mg/dL (NEGATIVE) H Urine Glucose (UA) NEGATIVE mg/dL (NEGATIVE) Urine Ketones NEGATIVE mg/dL (NEGATIVE) Urine Occult Blood SMALL (NEGATIVE) H Urine Nitrate NEGATIVE (NEGATIVE) Urine Bilirubin NEGATIVE mg/dL (NEGATIVE) Urine Urobilinogen 0.2 mg/dL (0.2-1.0) Urine Leukocyte Esterase 250 Sergey/uL (NEGATIVE) H Urine RBC 2-5 /HPF (0-1) H Urine WBC >100 /HPF (0-1) H Urine WBC Clumps (Auto) FEW /HPF (0-1) Urine Squamous Epithelial Cells RARE /HPF (0-2) Urine Bacteria RARE /HPF (None Seen) White Blood Count 7.2 K/uL (4.8-10.8) Red Blood Count 2.37 MIL/uL (4.00-5.50) L Hemoglobin 7.2 g/dL (12.0-16.0) L Hematocrit 22.6 % (36-48) L Mean Corpuscular Volume 95.4 fL (79-99) Mean Corpuscular Hemoglobin 30.4 pg (27.0-33.0) Mean Corpuscular Hemoglobin Concent 31.9 g/dL (32.0-36.0) L Red Cell Distribution Width 17.4 % (11.0-15.5) H Platelet Count 148 K/uL (130-400) Mean Platelet Volume 9.6 fL (7.5-10.5) Immature Granulocyte % (Auto) 3.9 % (0-1) H Neutrophils (%) (Auto) 69.3 % (40.0-77.0) Lymphocytes (%) (Auto) 17.9 % (21.0-51.0) L Monocytes (%) (Auto) 6.0 % (3.0-13.0) Eosinophils (%) (Auto) 2.1 % (0.0-8.0) Basophils (%) (Auto) 0.8 % (0.0-5.0) Neutrophils # (Auto) 5.0 K/uL (1.8-7.7) Lymphocytes # (Auto) 1.3 K/uL (1.0-4.8) Monocytes # (Auto) 0.4 K/uL (0.1-1.0) Eosinophils # (Auto) 0.15 K/uL (0.00-0.70) Basophils # (Auto) 0.06 K/uL (0.00-0.20) Absolute Immature Granulocyte (auto 0.28 K/uL (0-1) Nucleated Red Blood Cells 3.9 % (0.0-0.19) H Sodium Level 129 mmol/L (136-145) L Potassium Level 4.7 mmol/L (3.5-5.1) Chloride Level 97 mmol/L (101-111) L Carbon Dioxide Level 22 mmol/L (21-32) Blood Urea Nitrogen 31 mg/dL (7-18) H Creatinine 2.3 mg/dL (0.5-1.0) H Glomerular Filtration Rate Calc 20 mL/min (>90) Random Glucose 112 mg/dL (70-105) H Lactic Acid Level 1.7 mmol/L (0.8-2.5) Total Calcium 8.8 mg/dL (8.5-10.1) Total Bilirubin 0.2 mg/dL (0.2-1.0) Direct Bilirubin 0.1 mg/dL (0.0-0.3) Aspartate Amino Transf (AST/SGOT) 19 U/L (10-37) Alanine Aminotransferase (ALT/SGPT) 12 U/L (12-78) Alkaline Phosphatase 67 U/L (50-136) Total Creatine Kinase 31 U/L (21-232) # Troponin I High Sensitivity 16 ng/L (4-50) Total Protein 12.8 g/dL (6.0-8.3) H Albumin 2.1 g/dL (3.5-5.0) L Lipase 75 U/L (16-77) Labs Reviewed?: Yes EKG: (+) rhythm (Rhythm) EKG Comment: Date:09/07/2024 Time:0124 Ventricular rate:81 MO interval:248 QRS duration:137 QT/QTc:404 EKG interpretation: Sinus rhythm Reviewed by ED Attending of STEMI ED Course ED Course Orders Procedure Category Date Status Time Cbc With Differential LAB 09/06/24 Complete 21:57 Blood Cult ALETA 09/06/24 In Process 21:57 Urinalysis Profile LAB 09/06/24 Complete 21:57 Chest 1vw RAD 09/06/24 Taken 21:57 Acetaminophen 500mg PHA 09/06/24 Complete Tab (Tylenol 500mg T 22:00 0.9%Nacl 1000ml (Ns PHA 09/06/24 Complete 1000ml) 22:00 Creatine Kinase, Total LAB 09/06/24 Complete 21:57 Troponin I High LAB 09/06/24 Complete Sensitivity 21:57 Lactic Acid LAB 09/06/24 Complete 21:57 Ceftriaxone 1g Vial PHA 09/06/24 Complete (Rocephine 1g Inj) 22:00 Basic Metabolic Panel LAB 09/06/24 Complete 21:57 Lipase LAB 09/06/24 Complete 21:57 Hepatic Function Panel LAB 09/06/24 Complete 21:57 Ct Abdomen/Pelvis W/O CT 09/06/24 Resulted Contrast 22:51 Culture Urine ALETA 09/06/24 In Process 23:13 Admit Orders ADM 09/07/24 Transmitted 01:11 Edm Admit Bridge Order ADM 09/07/24 Transmitted 01:11 12 Lead Ekg Tracing- EKG 09/07/24 Complete Technical 01:16 Vital Signs Date Time Temp Pulse Resp B/P (MAP) Pulse Ox O2 Delivery O2 Flow Rate FiO2 09/07/24 02:56 80 18 152/75 98 Room Air* 0 09/07/24 01:25 99.7 82 18 157/51 97 Room Air* 0 09/07/24 00:10 102.6 88 18 178/76 99 Room Air* 0 09/06/24 23:26 90 18 170/55 Room Air* 0 09/06/24 23:21 100.9 09/06/24 21:38 101.1 93 20 204/76 98 Room Air Medical Decision Making MDM MDM: The patient is an 83-year-old female with a history of diabetes, hypertension, anemia who presents to the emergency department with complaints of fevers, periumbilical abdominal pain onset Friday. Patient denies any nausea or vomiting, denies diarrhea, or constipation. Reports that she initially had painful urination on Friday. CBC showed no leukocytosis, mild normocytic anemia, chemistry showed mild hyponatremia, hypochloremia, GFR of 20 unchanged from previous visits, negative troponin urinalysis positive for leukocyte esterase. CT abdomen showed a tiny periumbilical hernia with fat contents. Mild diverticulosis. Patient will be admitted for management of UTI and sepsis. Differential diagnosis: Sepsis, appendicitis, electrolyte imbalance, dehydration, pneumonia Comorbidities: Diabetes, hypertension, anemia, chronic kidney disease Tests considered and not ordered secondary to shared decision making include: none Previous outside records reviewed: none Risk of complication and/or morbidity or mortality of patient management: The p atient meets criteria for admission. Need for emergency major/minor surgery: No There are no social concerns with this patient. I independently interpreted the tests I ordered (labs, urinalysis, etc.). I discussed the case with the hospitalist for admission. [facility] who accepts admission I discussed the case with the following specialists: none. Historian: [email or web address]. I independently interpreted imaging studies and EKGs that I ordered (US, CT, XR, EKG, etc.). External chart review: none. Medical management and examination interpretation discussions were had by me with other qualified healthcare professionals as indicated for the patient's care. DX & DISP Disposition: Inpatient Decision to Admit Date: Sep 07, 2024 Decision to Admit Time: 01:18 Departure Impression: Primary Impression: UTI (urinary tract infection) Additional Impressions: Sepsis, Anemia, Chronic renal failure Condition: Stable Referrals: SANDOVAL FENTON MD (PCP) I have reviewed the case, and I agree with, Diagnosis and Plan LEONIDAS AJ [facility] Sep 06, 2024 22:42
[2024-09-06 22:48] LABS: CREATININE 2.3 mg/dL (0.5-1.0); POTASSIUM 4.7 mmol/L (3.5-5.1)
[2024-09-06 23:01] LABS: ALBUMIN 2.1 g/dL (3.5-5.0); BILIRUBIN,DIRECT 0.1 mg/dL (0.0-0.3); BILIRUBIN,TOTAL 0.2 mg/dL (0.2-1.0); TOTAL PROTEIN, SERUM 12.8 g/dL (6.0-8.3)
[2024-09-06 23:09] LABS: APPEARANCE,URINE CLEAR (CLEAR); BILIRUBIN,URINE NEGATIVE (NEGATIVE); COLOR,URINE LIGHT-YELLOW (YELLOW); GLUCOSE, URINE (UA) NEGATIVE (NEGATIVE); KETONES,URINE NEGATIVE (NEGATIVE); LEUKOCYTE ESTERASE ,URINE 250 Leu/uL (NEGATIVE); NITRATE,URINE NEGATIVE (NEGATIVE); OCCULT BLOOD,URINE SMALL (NEGATIVE); PH,URINE 5.5 (5.0-8.0); PROTEIN,URINE 50 mg/dL (NEGATIVE); UROBILINOGEN,URINE 0.2 mg/dL (0.2-1.0)
[2024-09-06 23:13] LABS: ADD UA MICROSCOPIC YES
[2024-09-06 23:16] LABS: BACTERIA,URINE RARE /HPF (None Seen); SQUAMOUS EPITHELIAL CELL,UR RARE /HPF (0-2); WBC CLUMP FEW /HPF (0-1); WBC,URINE >100 /HPF (0-1)
[2024-09-06] MEDS: cefTRIAXone 1G VIAL IVPB ONE (23:19)
[2024-09-06] MEDS: acetaMINOPHEN 500 MG TABLET PO ONE (23:21)
--- NOTE | 2024-09-06 23:38 | HMCIMG ---
CT ABDOMEN/PELVIS W/O CONTRAST HISTORY: Periumbilical pain COMPARISON: 07/05/2024 TECHNIQUE: Multiple sequential axial images of the abdomen and pelvis were obtained from the dome of the diaphragm through symphysis pubis. Patient was not given contrast through intravenous route. Oral contrast was not given. FINDINGS: No pleural effusion is seen bilaterally. There is no evidence of parenchymal disease or pulmonary nodule of the visualized lower lungs. Degenerative changes of the thoracolumbar spine are present. The heart is not enlarged. Then liver measured 15 cm. There is left renal atrophy. There is mild diverticulosis. Tiny periumbilical hernia is seen with fat content. The liver, spleen, adrenal glands and pancreas are unremarkable. There is no evidence of hydronephrosis bilaterally. No evidence of renal stone is seen. Fecal material is seen in the colon. There are normal size retroperitoneal and mesenteric lymph nodes. No ascites is seen. Atherosclerotic changes are present. Uterus is prominent for patient's age may be related to fibroid uterus. Pelvic sidewalls are symmetric bilaterally. Bladder is well distended without wall thickening. IMPRESSION: 1. Tiny periumbilical hernia is seen with fat content. Mild diverticulosis. Fecal material in the colon. CT was performed with one or more following dose reduction techniques: automated exposure control, adjustment of the mA and kv according to patient's size, or use of a iterative reconstruction technique.
--- NOTE | 2024-09-07 01:26 | EKG ---
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
--- NOTE | 2024-09-07 04:36 | NUR ---
[employer] FAMILY AT BEDSIDE.
[2024-09-07] MEDS ORDERED: ondanSETRON 4MG INJ IV PRN (05:00)
[2024-09-07] MEDS: acetaMINOPHEN 325 MG TAB PO ONE (05:50)
--- NOTE | 2024-09-07 07:05 | NUR ---
Assumed patient care at this time.
--- NOTE | 2024-09-07 07:59 | NUR ---
Placed home medication on chart, waiting for physician to reconsile home medications.
--- NOTE | 2024-09-07 08:58 | HMCIMG ---
CHEST 1VW HISTORY: Fever COMPARISON: 05/02/2024 FINDINGS: A frontal projection of the chest was obtained. No acute pulmonary infiltrates is seen. The heart is normal in size. Prominent interstitial markings are seen. Degenerative changes are seen. IMPRESSION: 1. No acute pulmonary infiltrate is seen.
[2024-09-07] MEDS ORDERED: cefTRIAXone 1G VIAL 1 GM in 0.9%NACL 50ML 50 ML IV SCH (09:00)
--- NOTE | 2024-09-07 09:00 | NUR ---
Spoke to Dr. Del Castillo (nephrology) for new consult. Physician stated he will be rounding soon and will see patient.
--- NOTE | 2024-09-07 09:20 | NUR ---
CALLED PETE [employer] PROFESSOR FOR HOSPITALIST AND NOTIFY HER PATIENT HAD A HEMOGLOBIN OF 7.2. WAITING FOR NEW ORDERS.
[2024-09-07 09:52] LABS: MEAN CORPUSCULAR HEMOGLOBIN 30.2 pg (27.0-33.0); MEAN CORPUSCULAR HGB CONC 31.6 g/dL (32.0-36.0); MEAN CORPUSCULAR VOLUME 95.6 fL (79-99); NUCLEATED RED BLOOD CELLS 1.3 % (0.0-0.19); RED BLOOD CELL COUNT(AUTO) 2.05 MIL/uL (4.00-5.50); RED CELL DISTRIBUTION WIDTH 17.4 % (11.0-15.5); WHITE BLOOD COUNT (AUTO) 6.8 K/uL (4.8-10.8)
[2024-09-07 09:55] LABS: CREATININE 2.1 mg/dL (0.5-1.0); MAGNESIUM 2.1 mg/dL (1.80-2.40); POTASSIUM 3.9 mmol/L (3.5-5.1)
[2024-09-07] MEDS: cefTRIAXone 1G VIAL IVPB SCH (10:14)
[2024-09-07 10:17] LABS: HEMATOCRIT 19.6 % (36-48)
[2024-09-07] MEDS: FAMOTIDINE 20MG TAB PO SCH (10:21)
--- NOTE | 2024-09-07 10:51 | NUR ---
DCP: HOME Pt is undocumented, has no [place] benefits, currently staying with daughter Melina. Pt takes turns staying with Ashley Mcmahon [phone] or Melina Crenshaw [phone]. Per [facility] Melina, remains independent of ADLS, uses a cane as needed. Has no in home care services. Pt is seen at [facility] by Dr Vera Medeiros and uses [facility] for rx. [facility] states she will take pt home at vt. Community resources given Addendum: 09/07/24 at 1055 by JERRY SALTER SS Amended: Links added.
[2024-09-07] MEDS ORDERED: DEXTROSE 50%-WATER 50 ML DISP.SYRIN IV PRN (11:00)
[2024-09-07] MEDS ORDERED: COMPOUND IV REFRIGERATED 1 EACH IVSOLN MISC PRN (11:00)
[2024-09-07] MEDS ORDERED: ondanSETRON 4MG INJ IVP PRN (11:00)
[2024-09-07] MEDS ORDERED: GLUCAGON 1MG KIT 1 MG ML IM PRN (11:00)
[2024-09-07] MEDS ORDERED: acetaMINOPHEN 325 MG TAB PO PRN (11:00)
[2024-09-07] MEDS ORDERED: PoTASSium chloRIDE 10MEQ/100ML 100 ML IV PRN (11:00)
--- NOTE | 2024-09-07 11:00 | NUR ---
CALLED MRS. MAR SHANKAR FOR GI TO NOTIFY ABOUT NEW CONSULT. (VIEW ORDERS)
--- NOTE | 2024-09-07 11:01 | HP ---
[facility] HISTORY AND PHYSICAL Date of Service: Sep 07, 2024 Time of Service: 10:13 HISTORY OF PRESENT ILLNESS: [This is an 83-year-old female with past medical history of hypertension and diabetes mellitus who presented to the emergency department with subjective fever of 103 F associated with weakness, chill, and fatigue. Patient also complained of dysuria that started on Friday09/03/2024. Patient's daughter at bedside who decided to take the patient to the emergency department for further evaluation. In the ED, VS reviewed: 101.1 Degree F, pulse 93, respiratory rate 20, blood pressure 204/76, 98% on room air. WBCs 7.2, HGB 7.2, HCT 22.6, PLT 148, Na 129, Cl 97, BUN , creatinine 2.3, random glucose 112, total protein 12.8, albumin 2.1. Urinalysis remarkable for leuko esterase 250 with initial urine culture showing [id number] CFU. Patient was started with IV antibiotics. This morning, we repeated her labs her H&H dropped to 6.2/19.6 respectively. Patient will be type and cross and we will transfuse patient with1 unit of PRBC. Patient was evaluated in ED two with her daughter at bedside. She is alert and oriented x3. denies any pain at this] REVIEW OF SYSTEMS CONSTITUTIONAL: Denies fevers, chills, or night sweats. No unintentional weight loss reported. NEUROLOGICAL: Denies headache, amaurosis fugax, motor weakness, sensory deficit, vertigo/spinning sensation, gait abnormalities, or tremors. ENT: No hearing loss, otalgia, otorrhea, rhinitis, rhinorrhea, hoarseness, or sore throat. CARDIOVASCULAR: Denies any exertional angina, dyspnea on exertion, orthopnea, paroxysmal nocturnal dyspnea, palpitations, life-threatening arrhythmias, claudication. PULMONARY: Denies any shortness of breath, cough, phlegm/sputum, hemoptysis, pleuritic chest pain. SLEEP: Denies morning headaches, daytime somnolence or napping. Denies difficulty falling asleep, staying asleep, waking from sleep. Denies knowledge of snoring. GASTROINTESTINAL: Denies any type of dysphagia to either liquids or solids. Denies nausea, vomiting, pyrosis, early satiety, abdominal pain, diarrhea, constipation, or changes in stool consistency or caliber. Denies coffee-ground emesis, hematemesis, hematochezia, or melanotic stools. GENITOURINARY: Denies frequency, urgency, nocturia, hematuria or incontinence (Storage/Irritative symptoms.) Low urinary stream, straining to void, urinary intermittency or hesitancy, splitting of the voiding stream, terminal dribbling. ENDOCRINOLOGIC: Denies polyuria, polydipsia, polyphagia or heat/cold intolerances. HEMATOLOGIC: Denies thrombophilia/previous clots, or coagulopathy/bleeding disorders. ONCOLOGIC: Denies personal history of malignancy. DERMATOLOGIC: Denies rashes or pruritus. PSYCHIATRIC: Denies any suicidal or homicidal ideation. Denies hallucinations. PAST MEDICAL HISTORY: [Diabetes mellitus, hypertension ] PAST SURGICAL HISTORY: [Denies any surgical history ] PAST SOCIAL HISTORY: [ Patient lives with her daughter. She denies tobacco, alcohol illicit drug use ] FAMILY HISTORY: [Hypertension ] Coded Allergies: Penicillins (Unverified Allergy, Intermediate, RASH, 05/02/24) PHYSICAL EXAM GENERAL APPEARANCE: The patient is awake, alert, and oriented, in no acute cardiopulmonary distress. NEUROLOGICAL: Cranial nerves II-XII grossly intact. Motor is 5/5 in bilateral upper and lower extremities proximal to distal. No sensory deficits. HEENT: Face is symmetric. Pupils are equal and reactive. Extraocular movements are intact. NECK: Supple. No JVD. No thyromegaly. No submental, submandibular, pre- /postauricular, occipital or supraclavicular lymphadenopathy. CHEST: Normal chest expansion. No Telemetry. LUNGS: Absence of any rales, rhonchi or any wheezing. CARDIOVASCULAR: Regular. S1 and S2 normal. No appreciable rubs, murmurs or gallops. ABDOMEN: Soft, nontender, and nondistended. There is no rebound, voluntary guarding, or rigidity. : Deferred. No Swift. EXTREMITIES: Non-edematous and not cyanotic. No clubbing. Good capillary refill. SKIN: No skin breakdown. Vital Sign (Last 24 Hours) 09/07/24 08:00 Temp 98.1 Pulse 68 Resp 15 B/P (MAP) 148/52 Pulse Ox 96 O2 Delivery Room Air* O2 Flow Rate 0 FiO2 21 LABS: Laboratory: Test 09/07/24 09:35 09/06/24 22:14 09/06/24 21:50 Range/Units Sodium Level 134 L 136-145 mmol/L Potassium Level 3.9 3.5-5.1 mmol/L Chloride Level 103 101-111 mmol/L Carbon Dioxide Level 22 21-32 mmol/L Blood Urea Nitrogen 27 H 7-18 mg/dL Creatinine 2.1 H 0.5-1.0 mg/dL Glomerular Filtration Rate Calc 23 >90 mL/min Random Glucose 183 #H 70-105 mg/dL Total Calcium 8.4 L 8.5-10.1 mg/dL Magnesium Level 2.10 1.80-2.40 mg/dL White Blood Count 7.2 4.8-10.8 K/uL Red Blood Count 2.37 L 4.00-5.50 MIL/uL Hemoglobin 7.2 L 12.0-16.0 g/dL Hematocrit 22.6 L 36-48 % Mean Corpuscular Volume 95.4 79-99 fL Mean Corpuscular Hemoglobin 30.4 27.0-33.0 pg Mean Corpuscular Hemoglobin Concent 31.9 L 32.0-36.0 g/dL Red Cell Distribution Width 17.4 H 11.0-15.5 % Platelet Count 148 130-400 K/uL Mean Platelet Volume 9.6 7.5-10.5 fL Immature Granulocyte % (Auto) 3.9 H 0-1 % Neutrophils (%) (Auto) 69.3 40.0-77.0 % Lymphocytes (%) (Auto) 17.9 L 21.0-51.0 % Monocytes (%) (Auto) 6.0 3.0-13.0 % Eosinophils (%) (Auto) 2.1 0.0-8.0 % Basophils (%) (Auto) 0.8 0.0-5.0 % Neutrophils # (Auto) 5.0 1.8-7.7 K/uL Lymphocytes # (Auto) 1.3 1.0-4.8 K/uL Monocytes # (Auto) 0.4 0.1-1.0 K/uL Eosinophils # (Auto) 0.15 0.00-0.70 K/uL Basophils # (Auto) 0.06 0.00-0.20 K/uL Absolute Immature Granulocyte (auto 0.28 0-1 K/uL Nucleated Red Blood Cells 3.9 H 0.0-0.19 % Lactic Acid Level 1.7 0.8-2.5 mmol/L Total Bilirubin 0.2 0.2-1.0 mg/dL Direct Bilirubin 0.1 0.0-0.3 mg/dL Aspartate Amino Transf (AST/SGOT) 19 10-37 U/L Alanine Aminotransferase (ALT/SGPT) 12 12-78 U/L Alkaline Phosphatase 67 50-136 U/L Total Creatine Kinase 31 # 21-232 U/L Troponin I High Sensitivity 16 4-50 ng/L Total Protein 12.8 H 6.0-8.3 g/dL Albumin 2.1 L 3.5-5.0 g/dL Lipase 75 16-77 U/L Urine Color LIGHT-YELLOW YELLOW Urine Appearance CLEAR CLEAR Urine pH 5.5 5.0-8.0 Urine Specific [place] 1.011 1.001-1.031 Urine Protein 50 H NEGATIVE mg/dL Urine Glucose (UA) NEGATIVE NEGATIVE mg/dL Urine Ketones NEGATIVE NEGATIVE mg/dL Urine Occult Blood SMALL H NEGATIVE Urine Nitrate NEGATIVE NEGATIVE Urine Bilirubin NEGATIVE NEGATIVE mg/dL Urine Urobilinogen 0.2 0.2-1.0 mg/dL Urine Leukocyte Esterase 250 H NEGATIVE Sergey/uL Urine RBC 2-5 H 0-1 /HPF Urine WBC >100 H 0-1 /HPF Urine WBC Clumps (Auto) FEW 0-1 /HPF Urine Squamous Epithelial Cells RARE 0-2 /HPF Urine Bacteria RARE None Seen /HPF Current Medications Medications (Trade) Dose Ordered Sig/Mare Route PRN Reason Start Time Stop Time Status Last Admin Dose Admin Ceftriaxone Sodium 1 gm/ Sodium Chloride 50 ml @ 100 mls/hr BID IV 09/07/24 09:00 09/07/24 04:52 DC Ceftriaxone Sodium (ROCEphine 1G INJ) 1 gm Q12H IVPB 09/07/24 10:00 09/17/24 09:59 Famotidine (Pepcid 20mg Tab) 10 mg Q48H PO 09/07/24 09:00 10/07/24 08:59 Ondansetron HCl (zoFRAN 4MG INJ) 4 mg Q6H PRN IV NAUSEA/VOMITING 09/07/24 05:00 10/07/24 04:59 Sodium Chloride 1,000 ml @ 75 mls/hr [id number] IV 09/07/24 10:30 10/07/24 10:29 [facility] DIAGNOSTICS / RADIOLOGY: [[facility] [address] [place], [place] [id number] IMAGING REPORT Signed PATIENT: RICHIE JAMES MR#: [id number] : 1940 SEX: F AGE: 83 LOCATION: [facility] ORDER 51 STATUS: [facility] REPORT#: [id number] SERVICE 50 REASON: periumbilical pain ORDERING PHYSICIAN: LEONIDAS AJ PROCEDURE: ABD PEL WO - CT ABDOMEN/PELVIS W/O CONTRAST CT ABDOMEN/PELVIS W/O CONTRAST HISTORY: Periumbilical pain COMPARISON: 07/05/2024 TECHNIQUE: Multiple sequential axial images of the abdomen and pelvis were obtained from the dome of the diaphragm through symphysis pubis. Patient was not given contrast through intravenous route. Oral contrast was not given. FINDINGS: No pleural effusion is seen bilaterally. There is no evidence of parenchymal disease or pulmonary nodule of the visualized lower lungs. Degenerative changes of the thoracolumbar spine are present. The heart is not enlarged. Then liver measured 15 cm. There is left renal atrophy. There is mild diverticulosis. Tiny periumbilical hernia is seen with fat content. The liver, spleen, adrenal glands and pancreas are unremarkable. There is no evidence of hydronephrosis bilaterally. No evidence of renal stone is seen. Fecal material is seen in the colon. There are normal size retroperitoneal and mesenteric lymph nodes. No ascites is seen. Atherosclerotic changes are present. Uterus is prominent for patient's age may be related to fibroid uterus. Pelvic sidewalls are symmetric bilaterally. Bladder is well distended without wall thickening. IMPRESSION: 1. Tiny periumbilical hernia is seen with fat content. Mild diverticulosis. Fecal material in the colon. CT was performed with one or more following dose reduction techniques: automated exposure control, adjustment of the mA and kv according to patient's size, or use of a iterative reconstruction technique. DICTATED BY: AZALIA BONILLA MD DATE: 09/06/242330 ELECTRONICALLY SIGNED BY: AZALIA BONILLA MD DATE: 09/06/242337 [address] [address] IMAGING REPORT Signed PATIENT: RICHIE JAMES MR#: [id number] : 1940 SEX: F AGE: 83 LOCATION: [facility] ORDER 00 STATUS: ADM IN REPORT#: [id number] SERVICE 56 REASON: fever ORDERING PHYSICIAN: LEONIDAS JA SURGERY AIDE PROCEDURE: CXR1VW - CHEST 1VW CHEST 1VW HISTORY: Fever COMPARISON: 05/02/2024 FINDINGS: A frontal projection of the chest was obtained. No acute pulmonary infiltrates is seen. The heart is normal in size. Prominent interstitial markings are seen. Degenerative changes are seen. IMPRESSION: 1. No acute pulmonary infiltrate is seen. DICTATED BY: AZALIA BONILLA MD DATE: 09/07/24853 ELECTRONICALLY SIGNED BY: AZALIA BONILLA MD DATE: 09/07/2458 ] ASSESSMENT: [Sepsis, POA Urinary tract infection, POA Hypertensive urgency, POA Hyponatremia, POA Hypochloremia, POA Hyperglycemia, POA Blood loss anemia, POA Diabetes mellitus CKD stage IV ] PLAN: [Patient will be admitted to PCCU We will keep her NPO Patient was started with IV antibiotics in the emergency department Med patient will continue with Rocephin IV We will follow up with urine culture to narrow down the antibiotics We will order stool occult, consult records management director Patient will be started with Protonix drip per protocol We will continue to monitor kidney function, renally dose medication and avoid nephrotoxic We will also order Nephrology consult We will send patient for renal sonogram A.c. and HS glucometer checks and insulin sliding scale We will request home medication to be reconciled Physical therapy to evaluate and treat We will continue prn medication for nausea vomiting pain and fever Patient is a full code ADVANCED CARE PLANNING 1. Which of the following were discussed? Hospice Care - Yes / No Therapeutic options - Yes / No Advance Directives - Yes / No Other discussions - 2. Discussed with who? Patient 3. Voluntary nature of this service was explained to the patient? Yes / No 4. Amount of time spent - _20 mins 5. Reviewed by Physician? (if this service was performed by NPP) Yes / No ] ATTESTATION BY PHYSICIAN I have seen and examined the patient. I reviewed the documentation, medical decision making, and treatment plan as noted by the mid-level provider above. I agree with the findings and plan of care. KARIME GARCIA MD, [facility] Sep 07, 2024 11:01
[2024-09-07] MEDS: INSULIN humuLIN R 100 UNIT/ML 3ML SQ SCH (11:30)
--- NOTE | 2024-09-07 12:00 | NUR ---
Obtained consent for blood product transfusion.
[2024-09-07] MEDS: PANTOPrazole 40MG INJ 80 MG in 0.9%NACL 100ML 100 ML IVP SCH (12:06)
[2024-09-07] MEDS: 0.9%NACL 1000ML 1,000 ML IV SCH (12:06)
--- NOTE | 2024-09-07 13:21 | HMCIMG ---
US RENAL SONOGRAM HISTORY: Chronic renal disease COMPARISON: None TECHNIQUE: Renal and bladder ultrasound study was performed. FINDINGS: The right kidney measures 9.1 x 4.8 x 5.2 cm. The left kidney measures 8.3 x 4.6 x 3.5 cm. No evidence of hydronephrosis is seen of either kidney. Both kidneys are echogenic consistent medical renal disease. Bladder is moderately distended. Bladder wall measures 4 mm. IMPRESSION: 1. No hydronephrosis is seen.
--- NOTE | 2024-09-07 13:35 | NUR ---
VERIFIED PRBC BLOOD PRODUCT WITH MRS. MONICA BASS AT PATIENTS BEDSIDE. RE EDUCATED PATIENT AND FAMILY MEMBER (DAUGHTER) ON BLOOD PRODUCT TRANSFUSION, SIGNS AND SYMPTOMS OF AN ALLERGIC REASTION TO BLOOD PRODUCTS AND DURATION OF BLOOD TRANSFUSION. THEY VEBALIZED UNDERSTANDING.
--- NOTE | 2024-09-07 13:40 | NUR ---
PRIOR TO BLOOD TRANFUSION I OBTAINED VITAL SIGNS, PLACED A BLOOD WARMER FOR BLOOD TRANSFUSION PER DIRECTIONS OF BLOOD BANK. PATIENT IS ALERT, ORINETD IN PERSON, TIME AND PLACE. ABLE TO VOICE NEEDS.
--- NOTE | 2024-09-07 15:54 | CONS ---
GASTROENTEROLOGY CONSULTATION NOTE Date of Consultation: Sep 07, 2024 Time of Consultation: 15:54 History of Present Illness: This is an 83-year-old female with past medical history of hypertension and diabetes who presented due to fevers, weakness, chills and fatigue. Patient was found to have positive urine culture. We are consulted due to anemia. Hemoglobin trended up to 6.2 with a platelet count of 107. She does report melena and use of meloxicam. She also takes iron supplementation according to daughter. EGD offered however daughter defers. Review of Systems: CONSTITUTIONAL: No malaise or change in sensation of wellbeing. ENMT: No rhinorrhea, otorrhea, sinus pain, ear ache. CARDIOVASCULAR: No angina, palpitations, orthopnea or paroxysmal dyspnea. RESPIRATORY: No SOB. GASTROINTESTINAL: No abdominal pain, nausea, vomiting, diarrhea, hematemesis, melena or change in the patient's habitual bowel movements consistency/number. GENITOURINARY: No dysuria, hematuria or change in bladder continence. MUSCULOSKELETAL: No new muscle pain or decrease in muscular strength. No new joint swelling, redness or tenderness. SKIN: No new rash. Past Medical History: [ ] Past Surgical History: [ ] Past Social History: [ ] Family History: [ ] Coded Allergies: Penicillins (Unverified Allergy, Intermediate, RASH, 05/02/24) Physical Exam: GEN: Awake, alert, oriented in person, time and place, and in no acute distress. HEENT: No sinus tenderness. Tympanic membranes were not examined. No rhinorrhea. Oral pharyngeal mucosa is pink, moist and within normal limits. Neck is supple with no cervical lymphadenopathy, thyromegaly or JVD. CHEST: Inspection, palpation and percussion of the chest were unremarkable. Lung auscultation revealed normal breath sounds bilaterally. CARDIAC: PMI is within normal limits. Heart sounds are regular. Normal S1, S2. No gallop or murmur. ABD: Soft, non-tender and not distended. No peritoneal signs on palpation. No organomegaly. Normal bowel sounds. EXT: No cyanosis or clubbing. No edema. SKIN: Intact. No rashes. JOINTS: No evidence of synovitis or acute arthritis. NEURO: Alert and oriented to name, place and person. Cranial nerve examination is unremarkable. No focal motor deficits. Normal speech. Gait is normal. Strength is normal. Vital Sign (Last 24 Hours) 09/07/24 08:00 Temp 98.1 Pulse 68 Resp 15 B/P (MAP) 148/52 Pulse Ox 96 O2 Delivery Room Air* O2 Flow Rate 0 FiO2 21 Laboratory: [ ] Laboratory: Test 09/07/24 12:33 09/07/24 09:35 09/06/24 22:14 09/06/24 21:50 Range/Units Whole Blood Glucose 112 H 70-110 MG/DL White Blood Count 6.8 4.8-10.8 K/uL Red Blood Count 2.05 L 4.00-5.50 MIL/uL Hemoglobin 6.2 *L 12.0-16.0 g/dL Hematocrit 19.6 *L 36-48 % Mean Corpuscular Volume 95.6 79-99 fL Mean Corpuscular Hemoglobin 30.2 27.0-33.0 pg Mean Corpuscular Hemoglobin Concent 31.6 L 32.0-36.0 g/dL Red Cell Distribution Width 17.4 H 11.0-15.5 % Platelet Count 107 #L 130-400 K/uL Mean Platelet Volume 9.3 7.5-10.5 fL Nucleated Red Blood Cells 1.3 H 0.0-0.19 % Sodium Level 134 L 136-145 mmol/L Potassium Level 3.9 3.5-5.1 mmol/L Chloride Level 103 101-111 mmol/L Carbon Dioxide Level 22 21-32 mmol/L Blood Urea Nitrogen 27 H 7-18 mg/dL Creatinine 2.1 H 0.5-1.0 mg/dL Glomerular Filtration Rate Calc 23 >90 mL/min Random Glucose 183 #H 70-105 mg/dL Total Calcium 8.4 L 8.5-10.1 mg/dL Magnesium Level 2.10 1.80-2.40 mg/dL Immature Granulocyte % (Auto) 3.9 H 0-1 % Neutrophils (%) (Auto) 69.3 40.0-77.0 % Lymphocytes (%) (Auto) 17.9 L 21.0-51.0 % Monocytes (%) (Auto) 6.0 3.0-13.0 % Eosinophils (%) (Auto) 2.1 0.0-8.0 % Basophils (%) (Auto) 0.8 0.0-5.0 % Neutrophils # (Auto) 5.0 1.8-7.7 K/uL Lymphocytes # (Auto) 1.3 1.0-4.8 K/uL Monocytes # (Auto) 0.4 0.1-1.0 K/uL Eosinophils # (Auto) 0.15 0.00-0.70 K/uL Basophils # (Auto) 0.06 0.00-0.20 K/uL Absolute Immature Granulocyte (auto 0.28 0-1 K/uL Lactic Acid Level 1.7 0.8-2.5 mmol/L Total Bilirubin 0.2 0.2-1.0 mg/dL Direct Bilirubin 0.1 0.0-0.3 mg/dL Aspartate Amino Transf (AST/SGOT) 19 10-37 U/L Alanine Aminotransferase (ALT/SGPT) 12 12-78 U/L Alkaline Phosphatase 67 50-136 U/L Total Creatine Kinase 31 # 21-232 U/L Troponin I High Sensitivity 16 4-50 ng/L Total Protein 12.8 H 6.0-8.3 g/dL Albumin 2.1 L 3.5-5.0 g/dL Lipase 75 16-77 U/L Urine Color LIGHT-YELLOW YELLOW Urine Appearance CLEAR CLEAR Urine pH 5.5 5.0-8.0 Urine Specific [place] 1.011 1.001-1.031 Urine Protein 50 H NEGATIVE mg/dL Urine Glucose (UA) NEGATIVE NEGATIVE mg/dL Urine Ketones NEGATIVE NEGATIVE mg/dL Urine Occult Blood SMALL H NEGATIVE Urine Nitrate NEGATIVE NEGATIVE Urine Bilirubin NEGATIVE NEGATIVE mg/dL Urine Urobilinogen 0.2 0.2-1.0 mg/dL Urine Leukocyte Esterase 250 H NEGATIVE Sergey/uL Urine RBC 2-5 H 0-1 /HPF Urine WBC >100 H 0-1 /HPF Urine WBC Clumps (Auto) FEW 0-1 /HPF Urine Squamous Epithelial Cells RARE 0-2 /HPF Urine Bacteria RARE None Seen /HPF Current Medications Medications (Trade) Dose Ordered Sig/Mare Route PRN Reason Start Time Stop Time Status Last Admin Dose Admin Acetaminophen (TYLenol 325MG TAB) 650 mg Q4H PRN PO TEMPERATURE GREATER THAN 101.5 09/07/24 11:00 10/07/24 10:59 Acetaminophen (TYLenol 325MG TAB) 650 mg Q6H PRN PO MILD PAIN (1-3) 09/07/24 11:00 10/07/24 10:59 Ceftriaxone Sodium 1 gm/ Sodium Chloride 50 ml @ 100 mls/hr BID IV 09/07/24 09:00 09/07/24 04:52 DC Ceftriaxone Sodium (ROCEphine 1G INJ) 1 gm Q12H IVPB 09/07/24 10:00 09/17/24 09:59 09/07/24 10:14 1 GM Dextrose (D50w) 50 ml AD PRN IV HYPOGLYCEMIA PROTOCOL 09/07/24 11:00 10/07/24 10:59 Famotidine (Pepcid 20mg Tab) 10 mg Q48H PO 09/07/24 09:00 09/07/24 10:55 DC 09/07/24 10:21 10 MG Glucagon (Glucagon 1mg Kit) 1 mg AD PRN IM HYPOGLYCEMIA PROTOCOL 09/07/24 11:00 10/07/24 10:59 Hydralazine HCl (APRESOLine 20MG INJ) 5 mg Q6H PRN IV ADMINISTER FOR SBP > 160 09/07/24 11:00 10/07/24 10:59 Insulin Human Regular (humuLIN R 100 UNIT/ML 3ML) INSULIN SLIDING SCAL... ACHS SQ 09/07/24 11:30 10/07/24 11:29 Magnesium Sulfate 50 ml @ 0 mls/hr PROTOCOL PRN IV MAGNESIUM PROTOCOL 09/07/24 11:00 10/07/24 10:59 Ondansetron HCl (zoFRAN 4MG INJ) 4 mg Q6H PRN IV NAUSEA/VOMITING 09/07/24 05:00 10/07/24 04:59 Ondansetron HCl (zoFRAN 4MG INJ) 4 mg Q6H PRN IVP NAUSEA/VOMITING 09/07/24 11:00 09/07/24 11:02 DC Pantoprazole Sodium 80 mg/ Sodium Chloride 100 ml @ 10 mls/hr Q10H IVP 09/07/24 11:00 10/07/24 10:59 09/07/24 12:06 10 MLS/HR Potassium Chloride 100 ml @ 100 mls/hr AD PRN IV POTASSIUM PROTOCOL 09/07/24 11:00 10/07/24 10:59 Sodium Chloride 1,000 ml @ 75 mls/hr [id number] IV 09/07/24 10:30 10/07/24 10:29 09/07/24 12:06 75 MLS/HR Diagnostics / Radiology: [COPY/PASTE HERE IF NO REPORTS PLEASE DELETE SECTION] Assessment: Melena Acute blood loss anemia UTI HTN Plan: EGD offered; however, daughter defers Continue GI prophylaxis Advance diet as tolerated Avoid NSAIDs Antireflux measures Monitor H&H and transfuse as needed Call with questions, concerns or change in clinical status Patient to follow-up at clinic post discharge Thank you for this consult MAR [employer] A[employer]ST Sep 07, 2024 15:54
--- NOTE | 2024-09-07 17:30 | NUR ---
UNIT OF PRBC FINISHED. PATIENT IS ALERT, ORIENTED IN PERSON, TIME AND PLACE. NO SIGNS OF RESPIRATORY DISTRESS NOTED. PATIENT VERBALIZED NO PAIN AT THIS MOMENT.
[2024-09-07] MEDS: hydrALAZine 20MG/ML VIAL IV PRN (18:03)
[2024-09-07] MEDS: LAbetaLOL 20MG SYG IV ONE (20:33)
[2024-09-07 20:45] VITALS: TEMP 98.5
--- NOTE | 2024-09-07 22:41 | NUR ---
GAVE REPORT TO MR. POLLY NOE
[2024-09-08 06:14] LABS: BASOPHILS # (AUTO) 0.05 K/uL (0.00-0.20); BASOPHILS % (AUTO) 0.8 % (0.0-5.0); EOSINOPHILS # (AUTO) 0.08 K/uL (0.00-0.70); EOSINOPHILS % (AUTO) 1.3 % (0.0-8.0); HEMATOCRIT 25.4 % (36-48); IMMATURE GRANULOCYTE ABSOLUTE 0.18 K/uL (0-1); LYMPHOCYTES # (AUTO) 1.2 K/uL (1.0-4.8); LYMPHOCYTES % (AUTO) 19.8 % (21.0-51.0); MEAN CORPUSCULAR HEMOGLOBIN 29.6 pg (27.0-33.0); MEAN CORPUSCULAR HGB CONC 32.7 g/dL (32.0-36.0); MEAN CORPUSCULAR VOLUME 90.7 fL (79-99); MONOCYTES # (AUTO) 0.7 K/uL (0.1-1.0); MONOCYTES % (AUTO) 12.1 % (3.0-13.0); NEUTROPHILS # (AUTO) 3.8 K/uL (1.8-7.7); NUCLEATED RED BLOOD CELLS 1.7 % (0.0-0.19); PLATELET COUNT (AUTO) 109 K/uL (130-400); RED CELL DISTRIBUTION WIDTH 18.8 % (11.0-15.5)
[2024-09-08 06:26] LABS: ALBUMIN 1.6 g/dL (3.5-5.0); BILIRUBIN,TOTAL 0.2 mg/dL (0.2-1.0); POTASSIUM 4.1 mmol/L (3.5-5.1); TOTAL PROTEIN, SERUM 10.5 g/dL (6.0-8.3)
[2024-09-08 08:00] VITALS: BP 154/41; PULSE 64; RESP 18; TEMP 98.3
--- NOTE | 2024-09-08 08:36 | NUR ---
NOTIFIED DR. BELTRAN OF NEW CONSULT.
--- NOTE | 2024-09-08 08:37 | CONS ---
INFECTIOUS DISEASE CONSULTATION NOTE DATE OF SERVICE: 09/07/2024 REQUESTING PHYSICIAN: Андрей Vuong MD REASON FOR CONSULTATION: Sepsis. HISTORY OF PRESENT ILLNESS: An 83-year-old female with history of diabetes mellitus, hypertension, who presented to hospital with fever, chills and urinary symptoms. T-max at home was 103. The patient's symptoms started a few days prior to her presentation. The patient's urinalysis was positive. Urine culture growing Gram-negative jeffy. The patient has been started on ceftriaxone . The patient was also found with hemoglobin of 6.2, has been transfused. The patient has melanotic stool, but denies hematochezia and no hematemesis. No abdominal pain. PAST MEDICAL HISTORY: * Diabetes mellitus. * Hypertension. * Anemia. PAST SURGICAL HISTORY: Denies. ALLERGIES: PENICILLIN (TOLERATING CEFTRIAXONE). CURRENT MEDICATIONS: Include: * Ceftriaxone. * Insulin. * Tylenol. * IV fluid. * . SOCIAL HISTORY: No alcohol or tobacco use. Lives with daughter. FAMILY HISTORY: Positive for diabetes mellitus. REVIEW OF SYSTEMS: CONSTITUTIONAL: Positive for fever, chills and weakness. No weight loss. EYES: No eye pain. No photophobia or diplopia. HENT: No sore throat. No rhinorrhea or earache. NECK: No neck pain or neck swelling. RESPIRATORY: No cough. No hemoptysis or pleuritic pain. CARDIOVASCULAR: No chest pain. No palpitations or orthopnea. GASTROINTESTINAL: No nausea, vomiting or abdominal pain. GENITOURINARY: Positive for dysuria, urinary frequency. CENTRAL NERVOUS SYSTEM: No headache, dyspnea, or slurred speech. PSYCHIATRY: No depression. No suicidal ideation. MUSCULOSKELETAL: No joint pain. No joint swelling. PHYSICAL EXAMINATION: GENERAL: Elderly female, awake. VITAL SIGNS: Temperature 98.1, pulse 68, respiratory rate 15, BP 148/52. EYES: No icterus. Pupils are equal and reactive. HENT: No oral thrush seen. Moist oral mucosa. BACK: Supple. No JVD or thyromegaly. LUNGS: Good air entry. No rales. No rhonchi. CARDIOVASCULAR: S1, S2 regular. No murmur heard. ABDOMEN: Full, soft. Bowel sound is present. CENTRAL NERVOUS SYSTEM: Awake, alert, oriented x 3. No focal deficits. SKIN: No rashes. No itchiness. LYMPHATIC: No peripheral lymphadenopathy. BACK: No deformity. No pressure ulcer. LABORATORY DATA: Sodium 134, potassium of 3.9, BUN 27, creatinine 2.1. WBC of 6.8, hemoglobin 6.2, platelet 107. Urine culture growing Gram-negative. RADIOLOGY: CT of the abdomen unremarkable. ASSESSMENT: An 83-year-old female presenting with fever and chills. CURRENT PROBLEMS: Include: * Gram-negative sepsis. * Urinary tract infection. * Dehydration. * Anemia. * Acute renal failure. * Possible gastrointestinal bleed. * Debility. PLAN: * Continue ceftriaxone. * Monitor hemoglobin and hematocrit. * Avoid nephrotoxic medications. * Follow up cultures. * Continue antihypertensive. * Continue antidiabetic. * Continue nutritional support. * Continue pain management. Thank you for allowing me to participate in the care of this patient. TID: [id number] RECEIPT: [id number] MTDManinder
--- NOTE | 2024-09-08 08:41 | NUR ---
NOTIFIED DR. CARDENAS OF NEW CONSULT.
--- NOTE | 2024-09-08 09:00 | PN ---
GASTROENTEROLOGY PROGRESS NOTE Date of Visit: Sep 08, 2024 Time of Visit: 09:00 Events / Notes: [ ] Review of Systems: CONSTITUTIONAL: No malaise or change in sensation of wellbeing. ENMT: No rhinorrhea, otorrhea, sinus pain, ear ache. CARDIOVASCULAR: No angina, palpitations, orthopnea or paroxysmal dyspnea. RESPIRATORY: No SOB. GASTROINTESTINAL: No abdominal pain, nausea, vomiting, diarrhea, hematemesis, melena or change in the patient's habitual bowel movements consistency/number. GENITOURINARY: No dysuria, hematuria or change in bladder continence. MUSCULOSKELETAL: No new muscle pain or decrease in muscular strength. No new joint swelling, redness or tenderness. SKIN: No new rash. Physical Exam: GEN: Awake, alert, oriented in person, time and place, and in no acute distress. HEENT: No sinus tenderness. Tympanic membranes were not examined. No rhinorrhea. Oral pharyngeal mucosa is pink, moist and within normal limits. Neck is supple with no cervical lymphadenopathy, thyromegaly or JVD. CHEST: Inspection, palpation and percussion of the chest were unremarkable. Lung auscultation revealed normal breath sounds bilaterally. CARDIAC: PMI is within normal limits. Heart sounds are regular. Normal S1, S2. No gallop or murmur. ABD: Soft, non-tender and not distended. No peritoneal signs on palpation. No organomegaly. Normal bowel sounds. EXT: No cyanosis or clubbing. No edema. SKIN: Intact. No rashes. JOINTS: No evidence of synovitis or acute arthritis. NEURO: Alert and oriented to name, place and person. Cranial nerve examination is unremarkable. No focal motor deficits. Normal speech. Gait is normal. Strength is normal. Vital Signs (last 8hr) Date Time Temp Pulse Resp B/P (MAP) Pulse Ox O2 Delivery O2 Flow Rate FiO2 09/08/24 08:00 98.2 64 18 154/41 97 Room Air 09/08/24 05:56 98.4 68 18 159/54 98 Room Air* 0 21 09/08/24 01:37 98.4 74 19 149/50 98 Room Air* 0 21 Laboratory: [ ] Laboratory: Test 09/08/24 06:06 09/07/24 21:22 09/07/24 15:00 09/06/24 22:14 Range/Units White Blood Count 6.0 4.8-10.8 K/uL Red Blood Count 2.80 #L 4.00-5.50 MIL/uL Hemoglobin 8.3 #L 12.0-16.0 g/dL Hematocrit 25.4 #L 36-48 % Mean Corpuscular Volume 90.7 79-99 fL Mean Corpuscular Hemoglobin 29.6 27.0-33.0 pg Mean Corpuscular Hemoglobin Concent 32.7 32.0-36.0 g/dL Red Cell Distribution Width 18.8 H 11.0-15.5 % Platelet Count 109 L 130-400 K/uL Mean Platelet Volume 9.0 7.5-10.5 fL Immature Granulocyte % (Auto) 3.0 H 0-1 % Neutrophils (%) (Auto) 63.0 40.0-77.0 % Lymphocytes (%) (Auto) 19.8 L 21.0-51.0 % Monocytes (%) (Auto) 12.1 3.0-13.0 % Eosinophils (%) (Auto) 1.3 0.0-8.0 % Basophils (%) (Auto) 0.8 0.0-5.0 % Neutrophils # (Auto) 3.8 1.8-7.7 K/uL Lymphocytes # (Auto) 1.2 1.0-4.8 K/uL Monocytes # (Auto) 0.7 0.1-1.0 K/uL Eosinophils # (Auto) 0.08 0.00-0.70 K/uL Basophils # (Auto) 0.05 0.00-0.20 K/uL Absolute Immature Granulocyte (auto 0.18 0-1 K/uL Nucleated Red Blood Cells 1.7 H 0.0-0.19 % Red Blood Cell Morphology See comments Sodium Level 137 136-145 mmol/L Potassium Level 4.1 3.5-5.1 mmol/L Chloride Level 107 101-111 mmol/L Carbon Dioxide Level 20 L 21-32 mmol/L Blood Urea Nitrogen 24 H 7-18 mg/dL Creatinine 2.0 H 0.5-1.0 mg/dL Glomerular Filtration Rate Calc 24 >90 mL/min Random Glucose 100 70-105 mg/dL Total Calcium 9.1 8.5-10.1 mg/dL Magnesium Level 2.00 1.80-2.40 mg/dL Total Bilirubin 0.2 0.2-1.0 mg/dL Aspartate Amino Transf (AST/SGOT) 15 10-37 U/L Alanine Aminotransferase (ALT/SGPT) 10 L 12-78 U/L Alkaline Phosphatase 54 50-136 U/L Total Protein 10.5 H 6.0-8.3 g/dL Albumin 1.6 L 3.5-5.0 g/dL Whole Blood Glucose 140 H 70-110 MG/DL Stool Occult Blood NEGATIVE NEGATIVE Lactic Acid Level 1.7 0.8-2.5 mmol/L Direct Bilirubin 0.1 0.0-0.3 mg/dL Total Creatine Kinase 31 # 21-232 U/L Troponin I High Sensitivity 16 4-50 ng/L Lipase 75 16-77 U/L Test 09/06/24 21:50 Range/Units Urine Color LIGHT-YELLOW YELLOW Urine Appearance CLEAR CLEAR Urine pH 5.5 5.0-8.0 Urine Specific [place] 1.011 1.001-1.031 Urine Protein 50 H NEGATIVE mg/dL Urine Glucose (UA) NEGATIVE NEGATIVE mg/dL Urine Ketones NEGATIVE NEGATIVE mg/dL Urine Occult Blood SMALL H NEGATIVE Urine Nitrate NEGATIVE NEGATIVE Urine Bilirubin NEGATIVE NEGATIVE mg/dL Urine Urobilinogen 0.2 0.2-1.0 mg/dL Urine Leukocyte Esterase 250 H NEGATIVE Sergey/uL Urine RBC 2-5 H 0-1 /HPF Urine WBC >100 H 0-1 /HPF Urine WBC Clumps (Auto) FEW 0-1 /HPF Urine Squamous Epithelial Cells RARE 0-2 /HPF Urine Bacteria RARE None Seen /HPF Current Medications Medications (Trade) Dose Ordered Sig/Mare Route PRN Reason Start Time Stop Time Status Last Admin Dose Admin Acetaminophen (TYLenol 325MG TAB) 650 mg Q4H PRN PO TEMPERATURE GREATER THAN 101.5 09/07/24 11:00 10/07/24 10:59 Acetaminophen (TYLenol 325MG TAB) 650 mg Q6H PRN PO MILD PAIN (1-3) 09/07/24 11:00 10/07/24 10:59 Ceftriaxone Sodium 1 gm/ Sodium Chloride 50 ml @ 100 mls/hr BID IV 09/07/24 09:00 09/07/24 04:52 DC Ceftriaxone Sodium (ROCEphine 1G INJ) 1 gm Q12H IVPB 09/07/24 10:00 09/17/24 09:59 09/07/24 22:26 1 GM Dextrose (D50w) 50 ml AD PRN IV HYPOGLYCEMIA PROTOCOL 09/07/24 11:00 10/07/24 10:59 Famotidine (Pepcid 20mg Tab) 10 mg Q48H PO 09/07/24 09:00 09/07/24 10:55 DC 09/07/24 10:21 10 MG Glucagon (Glucagon 1mg Kit) 1 mg AD PRN IM HYPOGLYCEMIA PROTOCOL 09/07/24 11:00 10/07/24 10:59 Hydralazine HCl (APRESOLine 20MG INJ) 5 mg Q6H PRN IV ADMINISTER FOR SBP > 160 09/07/24 11:00 10/07/24 10:59 09/07/24 18:03 5 MG Insulin Human Regular (humuLIN R 100 UNIT/ML 3ML) INSULIN SLIDING SCAL... ACHS SQ 09/07/24 11:30 10/07/24 11:29 Magnesium Sulfate 50 ml @ 0 mls/hr PROTOCOL PRN IV MAGNESIUM PROTOCOL 09/07/24 11:00 10/07/24 10:59 Ondansetron HCl (zoFRAN 4MG INJ) 4 mg Q6H PRN IV NAUSEA/VOMITING 09/07/24 05:00 10/07/24 04:59 Ondansetron HCl (zoFRAN 4MG INJ) 4 mg Q6H PRN IVP NAUSEA/VOMITING 09/07/24 11:00 09/07/24 11:02 DC Pantoprazole Sodium 80 mg/ Sodium Chloride 100 ml @ 10 mls/hr Q10H IVP 09/07/24 11:00 10/07/24 10:59 09/08/24 05:59 10 MLS/HR Potassium Chloride 100 ml @ 100 mls/hr AD PRN IV POTASSIUM PROTOCOL 09/07/24 11:00 10/07/24 10:59 Sodium Chloride 1,000 ml @ 75 mls/hr [id number] IV 09/07/24 10:30 10/07/24 10:29 09/07/24 23:51 75 MLS/HR Diagnostics / Radiology: [COPY/PASTE HERE IF NO REPORTS PLEASE DELETE SECTION] Assessment: Melena Acute blood loss anemia UTI HTN Plan: EGD offered; however, daughter defers Continue GI prophylaxis Advance diet as tolerated Avoid NSAIDs Antireflux measures Monitor H&H and transfuse as needed Call with questions, concerns or change in clinical status Patient to follow-up at clinic post discharge Thank you for this consult MAR WOODWARD Sep 08, 2024 09:00
--- NOTE | 2024-09-08 09:22 | PN ---
[facility] PROGRESS NOTE Date of Service: Sep 08, 2024 Time of Service: 08:58 SUBJECTIVE: [Patient was evaluated this morning in ED 2., she is accompanied by her daughter. So far no fevers overnight, her blood pressure is still fluctuating latest one is 154/41. Patient had a low H&H yesterday for which she had1 unit of PRBC transfused. Latest H&H is 8.3/25.4 respectively. Urine culture came positive for E coli, Infectious Disease following the case we will defer antibiotic management to him. We will continue to follow. GI consulted, they are recommending EGD by daughter deferred recommendation for now refused. They will follow up in the outpatient setting. So far, no acute events reported overnight.] REVIEW OF SYSTEMS CONSTITUTIONAL: Denies fevers, chills, or night sweats. No unintentional weight loss reported. NEUROLOGICAL: Denies headache, amaurosis fugax, motor weakness, sensory deficit, vertigo/spinning sensation, gait abnormalities, or tremors. ENT: No hearing loss, otalgia, otorrhea, rhinitis, rhinorrhea, hoarseness, or sore throat. CARDIOVASCULAR: Denies any exertional angina, dyspnea on exertion, orthopnea, paroxysmal nocturnal dyspnea, palpitations, life-threatening arrhythmias, claudication. PULMONARY: Denies any shortness of breath, cough, phlegm/sputum, hemoptysis, pleuritic chest pain. SLEEP: Denies morning headaches, daytime somnolence or napping. Denies difficulty falling asleep, staying asleep, waking from sleep. Denies knowledge of snoring. GASTROINTESTINAL: Denies any type of dysphagia to either liquids or solids. Denies nausea, vomiting, pyrosis, early satiety, abdominal pain, diarrhea, constipation, or changes in stool consistency or caliber. Denies coffee-ground emesis, hematemesis, hematochezia, or melanotic stools. GENITOURINARY: Denies frequency, urgency, nocturia, hematuria or incontinence (Storage/Irritative symptoms.) Low urinary stream, straining to void, urinary intermittency or hesitancy, splitting of the voiding stream, terminal dribbling. ENDOCRINOLOGIC: Denies polyuria, polydipsia, polyphagia or heat/cold intolerances. HEMATOLOGIC: Denies thrombophilia/previous clots, or coagulopathy/bleeding disorders. ONCOLOGIC: Denies personal history of malignancy. DERMATOLOGIC: Denies rashes or pruritus. PSYCHIATRIC: Denies any suicidal or homicidal ideation. Denies hallucinations. PHYSICAL EXAM GENERAL APPEARANCE: The patient is awake, alert, and oriented, in no acute cardiopulmonary distress. NEUROLOGICAL: Cranial nerves II-XII grossly intact. Motor is 5/5 in bilateral upper and lower extremities proximal to distal. No sensory deficits. HEENT: Face is symmetric. Pupils are equal and reactive. Extraocular movements are intact. NECK: Supple. No JVD. No thyromegaly. No submental, submandibular, pre-/post auricular, occipital or supraclavicular lymphadenopathy. CHEST: Normal chest expansion. No Telemetry. LUNGS: Absence of any rales, rhonchi or any wheezing. CARDIOVASCULAR: Regular. S1 and S2 normal. No appreciable rubs, murmurs or gallops. ABDOMEN: Soft, nontender, and nondistended. There is no rebound, voluntary guarding, or rigidity. : Deferred. No [place]. EXTREMITIES: Non-edematous and not cyanotic. No clubbing. Good capillary refill. SKIN: No skin breakdown. Vital Signs (last 8hr) Date Time Temp Pulse Resp B/P (MAP) Pulse Ox O2 Delivery O2 Flow Rate FiO2 09/08/24 08:00 98.2 64 18 154/41 97 Room Air 09/08/24 05:56 98.4 68 18 159/54 98 Room Air* 0 21 09/08/24 01:37 98.4 74 19 149/50 98 Room Air* 0 21 LABS: Laboratory: Test 09/08/24 06:06 09/07/24 21:22 09/07/24 15:00 09/06/24 22:14 Range/Units White Blood Count 6.0 4.8-10.8 K/uL Red Blood Count 2.80 #L 4.00-5.50 MIL/uL Hemoglobin 8.3 #L 12.0-16.0 g/dL Hematocrit 25.4 #L 36-48 % Mean Corpuscular Volume 90.7 79-99 fL Mean Corpuscular Hemoglobin 29.6 27.0-33.0 pg Mean Corpuscular Hemoglobin Concent 32.7 32.0-36.0 g/dL Red Cell Distribution Width 18.8 H 11.0-15.5 % Platelet Count 109 L 130-400 K/uL Mean Platelet Volume 9.0 7.5-10.5 fL Immature Granulocyte % (Auto) 3.0 H 0-1 % Neutrophils (%) (Auto) 63.0 40.0-77.0 % Lymphocytes (%) (Auto) 19.8 L 21.0-51.0 % Monocytes (%) (Auto) 12.1 3.0-13.0 % Eosinophils (%) (Auto) 1.3 0.0-8.0 % Basophils (%) (Auto) 0.8 0.0-5.0 % Neutrophils # (Auto) 3.8 1.8-7.7 K/uL Lymphocytes # (Auto) 1.2 1.0-4.8 K/uL Monocytes # (Auto) 0.7 0.1-1.0 K/uL Eosinophils # (Auto) 0.08 0.00-0.70 K/uL Basophils # (Auto) 0.05 0.00-0.20 K/uL Absolute Immature Granulocyte (auto 0.18 0-1 K/uL Nucleated Red Blood Cells 1.7 H 0.0-0.19 % Red Blood Cell Morphology See comments Sodium Level 137 136-145 mmol/L Potassium Level 4.1 3.5-5.1 mmol/L Chloride Level 107 101-111 mmol/L Carbon Dioxide Level 20 L 21-32 mmol/L Blood Urea Nitrogen 24 H 7-18 mg/dL Creatinine 2.0 H 0.5-1.0 mg/dL Glomerular Filtration Rate Calc 24 >90 mL/min Random Glucose 100 70-105 mg/dL Total Calcium 9.1 8.5-10.1 mg/dL Magnesium Level 2.00 1.80-2.40 mg/dL Total Bilirubin 0.2 0.2-1.0 mg/dL Aspartate Amino Transf (AST/SGOT) 15 10-37 U/L Alanine Aminotransferase (ALT/SGPT) 10 L 12-78 U/L Alkaline Phosphatase 54 50-136 U/L Total Protein 10.5 H 6.0-8.3 g/dL Albumin 1.6 L 3.5-5.0 g/dL Whole Blood Glucose 140 H 70-110 MG/DL Stool Occult Blood NEGATIVE NEGATIVE Lactic Acid Level 1.7 0.8-2.5 mmol/L Direct Bilirubin 0.1 0.0-0.3 mg/dL Total Creatine Kinase 31 # 21-232 U/L Troponin I High Sensitivity 16 4-50 ng/L Lipase 75 16-77 U/L Test 09/06/24 21:50 Range/Units Urine Color LIGHT-YELLOW YELLOW Urine Appearance CLEAR CLEAR Urine pH 5.5 5.0-8.0 Urine Specific [place] 1.011 1.001-1.031 Urine Protein 50 H NEGATIVE mg/dL Urine Glucose (UA) NEGATIVE NEGATIVE mg/dL Urine Ketones NEGATIVE NEGATIVE mg/dL Urine Occult Blood SMALL H NEGATIVE Urine Nitrate NEGATIVE NEGATIVE Urine Bilirubin NEGATIVE NEGATIVE mg/dL Urine Urobilinogen 0.2 0.2-1.0 mg/dL Urine Leukocyte Esterase 250 H NEGATIVE Sergey/uL Urine RBC 2-5 H 0-1 /HPF Urine WBC >100 H 0-1 /HPF Urine WBC Clumps (Auto) FEW 0-1 /HPF Urine Squamous Epithelial Cells RARE 0-2 /HPF Urine Bacteria RARE None Seen /HPF Current Medications Medications (Trade) Dose Ordered Sig/Mare Route PRN Reason Start Time Stop Time Status Last Admin Dose Admin Acetaminophen (TYLenol 325MG TAB) 650 mg Q4H PRN PO TEMPERATURE GREATER THAN 101.5 09/07/24 11:00 10/07/24 10:59 Acetaminophen (TYLenol 325MG TAB) 650 mg Q6H PRN PO MILD PAIN (1-3) 09/07/24 11:00 10/07/24 10:59 Ceftriaxone Sodium 1 gm/ Sodium Chloride 50 ml @ 100 mls/hr BID IV 09/07/24 09:00 09/07/24 04:52 DC Ceftriaxone Sodium (ROCEphine 1G INJ) 1 gm Q12H IVPB 09/07/24 10:00 09/17/24 09:59 09/07/24 22:26 1 GM Dextrose (D50w) 50 ml AD PRN IV HYPOGLYCEMIA PROTOCOL 09/07/24 11:00 10/07/24 10:59 Famotidine (Pepcid 20mg Tab) 10 mg Q48H PO 09/07/24 09:00 09/07/24 10:55 DC 09/07/24 10:21 10 MG Glucagon (Glucagon 1mg Kit) 1 mg AD PRN IM HYPOGLYCEMIA PROTOCOL 09/07/24 11:00 10/07/24 10:59 Hydralazine HCl (APRESOLine 20MG INJ) 5 mg Q6H PRN IV ADMINISTER FOR SBP > 160 09/07/24 11:00 10/07/24 10:59 09/07/24 18:03 5 MG Insulin Human Regular (humuLIN R 100 UNIT/ML 3ML) INSULIN SLIDING SCAL... ACHS SQ 09/07/24 11:30 10/07/24 11:29 Magnesium Sulfate 50 ml @ 0 mls/hr PROTOCOL PRN IV MAGNESIUM PROTOCOL 09/07/24 11:00 10/07/24 10:59 Ondansetron HCl (zoFRAN 4MG INJ) 4 mg Q6H PRN IV NAUSEA/VOMITING 09/07/24 05:00 10/07/24 04:59 Ondansetron HCl (zoFRAN 4MG INJ) 4 mg Q6H PRN IVP NAUSEA/VOMITING 09/07/24 11:00 09/07/24 11:02 DC Pantoprazole Sodium 80 mg/ Sodium Chloride 100 ml @ 10 mls/hr Q10H IVP 09/07/24 11:00 10/07/24 10:59 09/08/24 05:59 10 MLS/HR Potassium Chloride 100 ml @ 100 mls/hr AD PRN IV POTASSIUM PROTOCOL 09/07/24 11:00 10/07/24 10:59 Sodium Chloride 1,000 ml @ 75 mls/hr [id number] IV 09/07/24 10:30 10/07/24 10:29 09/07/24 23:51 75 MLS/HR DIAGNOSTICS / RADIOLOGY: [ ] ASSESSMENT: [Sepsis, POA Urinary tract infection, POA for E coli Hypertensive urgency, POA, slowly improving Hyponatremia, POA, improved Hypochloremia, POA Hyperglycemia, POA Blood loss anemia, POA received 1 units of PRBC 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 We will continue to monitor kidney function, renally dose medication and avoid nephrotoxic We will also order Nephrology consult We will send patient for renal sonogram A.c. and HS glucometer checks and insulin sliding scale We will request home medication to be reconciled Physical therapy to evaluate and treat We will continue prn medication for nausea vomiting pain and fever Patient is a full code Case discussed with Dr. Garcia, above plan was formulated ATTESTATION BY PHYSICIAN I have seen and examined the patient. I reviewed the documentation, medical decision making, and treatment plan as noted by the mid-level provider above. I agree with the findings and plan of care. KARIME GARCIA MD, [facility] Sep 08, 2024 09:22
[2024-09-08] MEDS: nifeDIPine ER 30 MG TAB PO SCH (10:09)
[2024-09-08] MEDS ORDERED: FERR-82 PO (10:15)
[2024-09-08] MEDS ORDERED: VITAMIN B12 PO (10:15)
[2024-09-08 10:41] LABS: ABG OXYGEN SATURATION 54.4 % (94.0-98.0); DEVICE COMMENT VBGMINNIE; HCO3,VENOUS BLOOD GAS 17.3 (22.0-29.0); PCO2,VENOUS BLOOD GAS 31 (38-54); PO2,VENOUS BLOOD GAS 32.2 mmHg (23.0-48.0); VENT MODE, BG VBG (ROOM AIR)
[2024-09-08 12:00] VITALS: BP 170/62; PULSE 69; RESP 18; TEMP 98.2
[2024-09-08 13:18] VITALS: O2SAT 98
--- NOTE | 2024-09-08 15:00 | NUR ---
Order received and EMR reviewed. Patient noted with HgB 6.2 and HCT 19.6. PT team to follow.
--- NOTE | 2024-09-08 15:36 | CONS ---
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 She was followed by Dr. López. She presented to the emergency room for further evaluation of fever, generalized weakness, chills, and fatigue. She was noted with severe anemia, worsening renal function We are consulted for renal failure. Renal function remains elevated Electrolytes are stable Renal ultrasound showed no hydronephrosis. Bladder moderately distended. UA was positive for proteinuria. Blood cultures has been negative Urine cultures positive for E coli, continues on antibiotics She was seen in the emergency room, in no acute distress Family at the bedside Prognosis remains guarded REVIEW OF SYSTEMS: GENERAL: Positive for fever, generalized body weakness, fever and chills NEUROLOGIC: Negative for any blurry vision, blind spots, double vision, facial asymmetry, dysphagia, dysarthria, hemiparesis, hemisensory deficits, vertigo, ataxia. HEENT: Negative for any head trauma, neck trauma, neck stiffness, photophobia, p honophobia, sinusitis, rhinitis. CARDIAC: Negative for any chest pain, dyspnea on exertion, paroxysmal nocturnal dyspnea, peripheral edema. PULMONARY: Negative for any shortness of breath, wheezing, COPD, or TB exposure. GASTROINTESTINAL: Negative for any abdominal pain, nausea, vomiting, bright red blood per rectum, melena. GENITOURINARY: Negative for any dysuria, hematuria, incontinence. INTEGUMENTARY: Negative for any rashes, cuts, insect bites. RHEUMATOLOGIC: Negative for any joint pains, photosensitive rashes, history of vasculitis or kidney problems. HEMATOLOGIC: Negative for any abnormal bruising, frequent infections or bleeding. PAST MEDICAL HISTORY: hypertension, hyperlipidemia, chronic kidney disease, diabetes mellitus type 2, recurrent anemia, levothyroxine, and left adrenal mass PAST SURGICAL HISTORY: Bone marrow biopsy PAST SOCIAL HISTORY: Denies use of alcohol, tobacco or illicit drugs FAMILY HISTORY: Noncontributory PHYSICAL EXAM: GENERAL: Alert and oriented x 3. No acute distress. Well-nourished. EYES: EOMI. Anicteric. HENT: Moist mucous membranes. No scleral icterus. No cervical lymphadenopathy. LUNGS: Clear to auscultation bilaterally. No accessory muscle use. CARDIOVASCULAR: Regular rate and rhythm. No murmur. No JVD. ABDOMEN: Soft, non-tender and non-distended. No palpable masses. EXTREMITIES: No edema. Non-tender. SKIN: No rashes or lesions. Warm. NEUROLOGIC: No focal neurological deficits. CN II-XII grossly intact, but not individually tested. PSYCHIATRIC: Cooperative. Appropriate mood and affect. MEDICATIONS: [ ] Current Medications Medications (Trade) Dose Ordered Sig/Mare Route PRN Reason Start Time Stop Time Status Last Admin Dose Admin Acetaminophen (TYLenol 325MG TAB) 650 mg Q4H PRN PO TEMPERATURE GREATER THAN 101.5 09/07/24 11:00 10/07/24 10:59 Acetaminophen (TYLenol 325MG TAB) 650 mg Q6H PRN PO MILD PAIN (1-3) 09/07/24 11:00 10/07/24 10:59 Ceftriaxone Sodium 1 gm/ Sodium Chloride 50 ml @ 100 mls/hr BID IV 09/07/24 09:00 09/07/24 04:52 DC Ceftriaxone Sodium (ROCEphine 1G INJ) 1 gm Q12H IVPB 09/07/24 10:00 09/08/24 09:01 DC 09/07/24 22:26 1 GM Dextrose (D50w) 50 ml AD PRN IV HYPOGLYCEMIA PROTOCOL 09/07/24 11:00 10/07/24 10:59 Famotidine (Pepcid 20mg Tab) 10 mg Q48H PO 09/07/24 09:00 09/07/24 10:55 DC 09/07/24 10:21 10 MG Glucagon (Glucagon 1mg Kit) 1 mg AD PRN IM HYPOGLYCEMIA PROTOCOL 09/07/24 11:00 10/07/24 10:59 Hydralazine HCl (APRESOLine 20MG INJ) 5 mg Q6H PRN IV ADMINISTER FOR SBP > 160 09/07/24 11:00 10/07/24 10:59 09/07/24 18:03 5 MG Insulin Human Regular (humuLIN R 100 UNIT/ML 3ML) INSULIN SLIDING SCAL... ACHS SQ 09/07/24 11:30 10/07/24 11:29 Magnesium Sulfate 50 ml @ 0 mls/hr PROTOCOL PRN IV MAGNESIUM PROTOCOL 09/07/24 11:00 10/07/24 10:59 Nifedipine (adALAT 30MG) 90 mg DAILY PO 09/08/24 09:00 10/08/24 08:59 09/08/24 10:09 90 MG Ondansetron HCl (zoFRAN 4MG INJ) 4 mg Q6H PRN IV NAUSEA/VOMITING 09/07/24 05:00 10/07/24 04:59 Ondansetron HCl (zoFRAN 4MG INJ) 4 mg Q6H PRN IVP NAUSEA/VOMITING 09/07/24 11:00 09/07/24 11:02 DC Pantoprazole Sodium (PROTonix 40MG INJ) 40 mg BID IVP 09/08/24 21:00 10/08/24 20:59 Pantoprazole Sodium 80 mg/ Sodium Chloride 100 ml @ 10 mls/hr Q10H IVP 09/07/24 11:00 09/08/24 09:22 DC 09/08/24 05:59 10 MLS/HR Potassium Chloride 100 ml @ 100 mls/hr AD PRN IV POTASSIUM PROTOCOL 09/07/24 11:00 10/07/24 10:59 Sodium Chloride 1,000 ml @ 75 mls/hr [id number] IV 09/07/24 10:30 10/07/24 10:29 09/08/24 13:14 75 MLS/HR Vital Signs (last 8hr) Date Time Temp Pulse Resp B/P (MAP) Pulse Ox O2 Delivery O2 Flow Rate FiO2 09/08/24 13:18 98 Room Air* 0 21 09/08/24 12:00 98.2 69 18 170/62 97 Room Air 09/08/24 08:00 98.2 64 18 154/41 97 Room Air DIAGNOSTICS / RADIOLOGY: REASON: CKD ORDERING PHYSICIAN: PETE CONNOR PROCEDURE: RENAL - US RENAL SONOGRAM US RENAL SONOGRAM HISTORY: Chronic renal disease COMPARISON: None TECHNIQUE: Renal and bladder ultrasound study was performed. FINDINGS: The right kidney measures 9.1 x 4.8 x 5.2 cm. The left kidney measures 8.3 x 4.6 x 3.5 cm. No evidence of hydronephrosis is seen of either kidney. Both kidneys are echogenic consistent medical renal disease. Bladder is moderately distended. Bladder wall measures 4 mm. IMPRESSION: 1. No hydronephrosis is seen. DICTATED BY: AZALIA BONILLA MD DATE: 09/07/24 1318 REASON: periumbilical pain ORDERING PHYSICIAN: LEONIDAS AJ [facility] PROCEDURE: ABD PEL WO - CT ABDOMEN/PELVIS W/O CONTRAST CT ABDOMEN/PELVIS W/O CONTRAST HISTORY: Periumbilical pain COMPARISON: 07/05/2024 TECHNIQUE: Multiple sequential axial images of the abdomen and pelvis were obtained from the dome of the diaphragm through symphysis pubis. Patient was not given contrast through intravenous route. Oral contrast was not given. FINDINGS: No pleural effusion is seen bilaterally. There is no evidence of parenchymal disease or pulmonary nodule of the visualized lower lungs. Degenerative changes of the thoracolumbar spine are present. The heart is not enlarged. Then liver measured 15 cm. There is left renal atrophy. There is mild diverticulosis. Tiny periumbilical hernia is seen with fat content. The liver, spleen, adrenal glands and pancreas are unremarkable. There is no evidence of hydronephrosis bilaterally. No evidence of renal stone is seen. Fecal material is seen in the colon. There are normal size retroperitoneal and mesenteric lymph nodes. No ascites is seen. Atherosclerotic changes are present. Uterus is prominent for patient's age may be related to fibroid uterus. Pelvic sidewalls are symmetric bilaterally. Bladder is well distended without wall thickening. IMPRESSION: 1. Tiny periumbilical hernia is seen with fat content. Mild diverticulosis. Fecal material in the colon. CT was performed with one or more following dose reduction techniques: automated exposure control, adjustment of the mA and kv according to patient's size, or use of a iterative reconstruction technique. DICTATED BY: AZALIA BONILLA MD DATE: 09/06/24 2331 REASON: fever ORDERING PHYSICIAN: LEONIDAS AJ [facility] PROCEDURE: CXR1VW - CHEST 1VW CHEST 1VW HISTORY: Fever COMPARISON: 05/02/2024 FINDINGS: A frontal projection of the chest was obtained. No acute pulmonary infiltrates is seen. The heart is normal in size. Prominent interstitial markings are seen. Degenerative changes are seen. IMPRESSION: 1. No acute pulmonary infiltrate is seen. DICTATED BY: AZALIA BONILLA MD DATE: 09/07/24 0854 LABORATORY: [ ] Hematology Labs: Test 09/08/24 06:06 Range/Units White Blood Count 6.0 4.8-10.8 K/uL Red Blood Count 2.80 #L 4.00-5.50 MIL/uL Hemoglobin 8.3 #L 12.0-16.0 g/dL Hematocrit 25.4 #L 36-48 % Mean Corpuscular Volume 90.7 79-99 fL Mean Corpuscular Hemoglobin 29.6 27.0-33.0 pg Mean Corpuscular Hemoglobin Concent 32.7 32.0-36.0 g/dL Red Cell Distribution Width 18.8 H 11.0-15.5 % Platelet Count 109 L 130-400 K/uL Mean Platelet Volume 9.0 7.5-10.5 fL Immature Granulocyte % (Auto) 3.0 H 0-1 % Neutrophils (%) (Auto) 63.0 40.0-77.0 % Lymphocytes (%) (Auto) 19.8 L 21.0-51.0 % Monocytes (%) (Auto) 12.1 3.0-13.0 % Eosinophils (%) (Auto) 1.3 0.0-8.0 % Basophils (%) (Auto) 0.8 0.0-5.0 % Neutrophils # (Auto) 3.8 1.8-7.7 K/uL Lymphocytes # (Auto) 1.2 1.0-4.8 K/uL Monocytes # (Auto) 0.7 0.1-1.0 K/uL Eosinophils # (Auto) 0.08 0.00-0.70 K/uL Basophils # (Auto) 0.05 0.00-0.20 K/uL Absolute Immature Granulocyte (auto 0.18 0-1 K/uL Nucleated Red Blood Cells 1.7 H 0.0-0.19 % Red Blood Cell Morphology See comments Chemistry Labs: Test 09/08/24 11:41 09/08/24 06:06 09/06/24 22:14 Range/Units Whole Blood Glucose 137 H 70-110 MG/DL Sodium Level 137 136-145 mmol/L Potassium Level 4.1 3.5-5.1 mmol/L Chloride Level 107 101-111 mmol/L Carbon Dioxide Level 20 L 21-32 mmol/L Blood Urea Nitrogen 24 H 7-18 mg/dL Creatinine 2.0 H 0.5-1.0 mg/dL Glomerular Filtration Rate Calc 24 >90 mL/min Random Glucose 100 70-105 mg/dL Total Calcium 9.1 8.5-10.1 mg/dL Magnesium Level 2.00 1.80-2.40 mg/dL Total Bilirubin 0.2 0.2-1.0 mg/dL Aspartate Amino Transf (AST/SGOT) 15 10-37 U/L Alanine Aminotransferase (ALT/SGPT) 10 L 12-78 U/L Alkaline Phosphatase 54 50-136 U/L Total Protein 10.5 H 6.0-8.3 g/dL Albumin 1.6 L 3.5-5.0 g/dL Lactic Acid Level 1.7 0.8-2.5 mmol/L Direct Bilirubin 0.1 0.0-0.3 mg/dL Total Creatine Kinase 31 # 21-232 U/L Troponin I High Sensitivity 16 4-50 ng/L Lipase 75 16-77 U/L ASSESSMENT: Acute on chronic renal failure Sepsis Urinary tract infection Hypertensive urgency Hyponatremia Hypochloremia Hyperglycemia Blood loss anemia Diabetes mellitus type II Hypothyroidism Hyperlipidemia PLAN: Labs, diagnostic, radiologic exams reviewed and interpreted by myself and supervising physician. We have reviewed external records in detail Require close monitoring of renal function and electrolytes Bladder scan to rule out urinary retention Order CBC, CMP, complete iron panel, ferritin, uric acid, TSH and electrolytes in am Continue with antibiotics Renal diabetic diet BiPAP as necessary, for respiratory distress Monitor blood pressure adjust medication doses as needed Avoid hypotensive episodes May use Dilaudid 0.5 mg IV every 6 hours as needed for severe pain Monitor blood sugars Strict intake, output, and daily weight should be monitored Please renally adjust medications Avoid nephrotoxic and nonsteroidal drugs Avoid contrast if possible Will continue to monitor renal function, anemia, electrolytes Treatment plan discussed with patient Questions were answered We have discussed with the other team physicians in detail about the care plan We will continue to monitor the patient closely Thank you for allowing us to participate in the care of this patient ATTESTATION BY PHYSICIAN I have seen and examined the patient. I reviewed the documentation, medical de cision making, and treatment plan as noted by the mid-level provider above. I agree with the findings and plan of care. KEON CARDENAS MD, ELIZABETH WELDER TACK Sep 08, 2024 15:36
[2024-09-08 16:00] VITALS: BP 148/59; PULSE 77; RESP 18; TEMP 97
[2024-09-08] MEDS: acetaMINOPHEN 325 MG TAB PO PRN (16:02)
[2024-09-08 20:00] VITALS: BP 138/63; PULSE 78; RESP 20; TEMP 98.3; O2SAT 97
[2024-09-08] MEDS: PANTOPrazole 40 MG/VIAL IVP SCH (20:10)
--- NOTE | 2024-09-08 21:38 | PN ---
INFECTIOUS DISEASE FOLLOWUP NOTE DATE OF SERVICE: 09/08/2024 SUBJECTIVE: Elderly female who is seen today. No fever or chills. Looked clinically much better, tolerating orally. The patient tolerated antibiotic. The patient was given 1 unit of PRBC yesterday. Denied dysuria or urinary frequency. The patient has been evaluated by clinical material handler. PHYSICAL EXAMINATION: VITAL SIGNS: Temperature 98.4. EYES: No icterus. Pupils equal and reactive. HENT: No oral thrush seen. Moist oral mucosa. NECK: Supple, no JVD or thyromegaly. LUNGS: Good air entry. No rales, no rhonchi. CARDIOVASCULAR: S1, S2 regular. No murmur heard. ABDOMEN: Full, soft. Bowel sound is present. CENTRAL NERVOUS SYSTEM: Awake, alert and oriented x 3. No focal deficits. SKIN: No rashes, no itchiness. LYMPHATIC: No peripheral lymphadenopathy. BACK: No deformity, no pressure ulcer. MUSCULOSKELETAL: No joint swelling, erythema, or tenderness. LABORATORY DATA: Blood culture, no growth for one day. Urine culture grew E. coli. ASSESSMENT: An 83-year-old female with multiple problems include: * Escherichia coli sepsis. * Urinary tract infection. * Possible gastrointestinal bleed. * Dehydration. * Anemia, status post transfusion. * Acute renal failure. * Debility. PLAN: * Continue ceftriaxone. * Monitor hemoglobin and hematocrit. * Continue antiemetic. * Continue pain management. * Continue GI prophylaxis. * Monitor renal function. TID: [id number] RECEIPT: [id number]
[2024-09-08 23:55] VITALS: BP 169/72; PULSE 73; RESP 18; TEMP 97.9; O2SAT 98
[2024-09-09 04:00] VITALS: BP 153/67; PULSE 73; RESP 18; TEMP 98.1
[2024-09-09 04:08] LABS: HEMATOCRIT 22.8 % (36-48); MEAN CORPUSCULAR VOLUME 90.5 fL (79-99); RED BLOOD CELL COUNT(AUTO) 2.52 MIL/uL (4.00-5.50); RED CELL DISTRIBUTION WIDTH 18.1 % (11.0-15.5); WHITE BLOOD COUNT (AUTO) 4.5 K/uL (4.8-10.8)
[2024-09-09 04:18] LABS: % IRON SATURATION 33.6 % (22-44)
[2024-09-09 04:22] LABS: CREATININE 1.9 mg/dL (0.5-1.0); MAGNESIUM 1.9 mg/dL (1.80-2.40); PHOSPHORUS 3.3 mg/dL (2.5-4.9); POTASSIUM 3.9 mmol/L (3.5-5.1)
[2024-09-09] MEDS: MAGNESIUM 2GM PREMIX 50ML 50 ML IV PRN (04:53)
[2024-09-09 08:00] VITALS: BP 150/69; PULSE 69; RESP 17; TEMP 98.8
[2024-09-09] MEDS: Vitamin B Complex/Vit C/Folic Acid PO SCH (08:55)
--- NOTE | 2024-09-09 08:56 | PN ---
GASTROENTEROLOGY PROGRESS NOTE Date of Visit: Sep 09, 2024 Time of Visit: 08:56 Events / Notes: [ ] Review of Systems: CONSTITUTIONAL: No malaise or change in sensation of wellbeing. ENMT: No rhinorrhea, otorrhea, sinus pain, ear ache. CARDIOVASCULAR: No angina, palpitations, orthopnea or paroxysmal dyspnea. RESPIRATORY: No SOB. GASTROINTESTINAL: No abdominal pain, nausea, vomiting, diarrhea, hematemesis, melena or change in the patient's habitual bowel movements consistency/number. GENITOURINARY: No dysuria, hematuria or change in bladder continence. MUSCULOSKELETAL: No new muscle pain or decrease in muscular strength. No new joint swelling, redness or tenderness. SKIN: No new rash. Physical Exam: GEN: Awake, alert, oriented in person, time and place, and in no acute distress. HEENT: No sinus tenderness. Tympanic membranes were not examined. No rhinorrhea. Oral pharyngeal mucosa is pink, moist and within normal limits. Neck is supple with no cervical lymphadenopathy, thyromegaly or JVD. CHEST: Inspection, palpation and percussion of the chest were unremarkable. Lung auscultation revealed normal breath sounds bilaterally. CARDIAC: PMI is within normal limits. Heart sounds are regular. Normal S1, S2. No gallop or murmur. ABD: Soft, non-tender and not distended. No peritoneal signs on palpation. No organomegaly. Normal bowel sounds. EXT: No cyanosis or clubbing. No edema. SKIN: Intact. No rashes. JOINTS: No evidence of synovitis or acute arthritis. NEURO: Alert and oriented to name, place and person. Cranial nerve examination is unremarkable. No focal motor deficits. Normal speech. Gait is normal. Strength is normal. Vital Signs (last 8hr) Date Time Temp Pulse Resp B/P (MAP) Pulse Ox O2 Delivery O2 Flow Rate FiO2 09/09/24 08:00 98.8 69 17 150/69 97 Room Air 09/09/24 04:00 98.1 73 18 153/67 99 Room Air Laboratory: [ ] Laboratory: Test 09/09/24 05:32 09/09/24 03:32 09/08/24 10:39 09/08/24 06:06 Range/Units Whole Blood Glucose 111 H 70-110 MG/DL White Blood Count 4.5 L 4.8-10.8 K/uL Red Blood Count 2.52 L 4.00-5.50 MIL/uL Hemoglobin 7.3 L 12.0-16.0 g/dL Hematocrit 22.8 L 36-48 % Mean Corpuscular Volume 90.5 79-99 fL Mean Corpuscular Hemoglobin 29.0 27.0-33.0 pg Mean Corpuscular Hemoglobin Concent 32.0 32.0-36.0 g/dL Red Cell Distribution Width 18.1 H 11.0-15.5 % Platelet Count 106 L 130-400 K/uL Mean Platelet Volume 9.6 7.5-10.5 fL Nucleated Red Blood Cells 2.0 H 0.0-0.19 % Sodium Level 142 136-145 mmol/L Potassium Level 3.9 3.5-5.1 mmol/L Chloride Level 110 101-111 mmol/L Carbon Dioxide Level 21 21-32 mmol/L Blood Urea Nitrogen 26 H 7-18 mg/dL Creatinine 1.9 H 0.5-1.0 mg/dL Glomerular Filtration Rate Calc 26 >90 mL/min Random Glucose 98 70-105 mg/dL Total Calcium 8.8 8.5-10.1 mg/dL Phosphorus Level 3.3 2.5-4.9 mg/dL Magnesium Level 1.90 1.80-2.40 mg/dL Iron Level 40 #L 50-170 mcg/dL Total Iron Binding Capacity 119 L 250-450 mcg/dL Percent Iron Saturation 33.6 22-44 % Ferritin 455 H 15-150 ng/mL Blood Gas Specimen Type Venous Arterial Blood Oxygen Saturation 54.4 L 94.0-98.0 % Venous Blood pH 7.370 7.320-7.430 Venous Blood pCO2 at Patient Temp 31 L 38-54 Venous Blood pO2 at Patient Temp 32.2 23.0-48.0 mmHg Venous Blood HCO3 17.3 L 22.0-29.0 Venous Blood Base Excess -7.0 L -2.0-3.0 Venous Blood Total Hemoglobin 9.6 L 12.0-16.0 Sodium (Blood Gas) 141 136-145 MMOL/L Bedside Potassium (Blood Gas) 4.1 3.4-4.5 MMOL/L Bedside Chloride (Blood Gas) 109 H 98-107 MMOL/L Bedside Glucose (Blood Gas) 183 H 65-95 MG/DL Bedside Ionized Calcium (Blood Gas) 1.31 1.15-1.33 MMOL/L Bedside Lactic Acid (Blood Gas) 1.75 H 0.36-0.75 MMOL/L Blood Gas Temperature 37.0 35.5-37.0 CELSIUS Blood Gas Vent Mode VBG ROOM AIR FiO2 21.0 % Blood Gas Specimen Comment VBGMINNIE Immature Granulocyte % (Auto) 3.0 H 0-1 % Neutrophils (%) (Auto) 63.0 40.0-77.0 % Lymphocytes (%) (Auto) 19.8 L 21.0-51.0 % Monocytes (%) (Auto) 12.1 3.0-13.0 % Eosinophils (%) (Auto) 1.3 0.0-8.0 % Basophils (%) (Auto) 0.8 0.0-5.0 % Neutrophils # (Auto) 3.8 1.8-7.7 K/uL Lymphocytes # (Auto) 1.2 1.0-4.8 K/uL Monocytes # (Auto) 0.7 0.1-1.0 K/uL Eosinophils # (Auto) 0.08 0.00-0.70 K/uL Basophils # (Auto) 0.05 0.00-0.20 K/uL Absolute Immature Granulocyte (auto 0.18 0-1 K/uL Red Blood Cell Morphology See comments Total Bilirubin 0.2 0.2-1.0 mg/dL Aspartate Amino Transf (AST/SGOT) 15 10-37 U/L Alanine Aminotransferase (ALT/SGPT) 10 L 12-78 U/L Alkaline Phosphatase 54 50-136 U/L Total Protein 10.5 H 6.0-8.3 g/dL Albumin 1.6 L 3.5-5.0 g/dL Test 09/07/24 15:00 Range/Units Stool Occult Blood NEGATIVE NEGATIVE Current Medications Medications (Trade) Dose Ordered Sig/Mare Route PRN Reason Start Time Stop Time Status Last Admin Dose Admin Acetaminophen (TYLenol 325MG TAB) 650 mg Q4H PRN PO TEMPERATURE GREATER THAN 101.5 09/07/24 11:00 10/07/24 10:59 09/08/24 16:02 650 MG Acetaminophen (TYLenol 325MG TAB) 650 mg Q6H PRN PO MILD PAIN (1-3) 09/07/24 11:00 10/07/24 10:59 Ceftriaxone Sodium 1 gm/ Sodium Chloride 50 ml @ 100 mls/hr BID IV 09/07/24 09:00 09/07/24 04:52 DC Ceftriaxone Sodium (ROCEphine 1G INJ) 1 gm Q12H IVPB 09/07/24 10:00 09/08/24 09:01 DC 09/07/24 22:26 1 GM Dextrose (D50w) 50 ml AD PRN IV HYPOGLYCEMIA PROTOCOL 09/07/24 11:00 10/07/24 10:59 Famotidine (Pepcid 20mg Tab) 10 mg Q48H PO 09/07/24 09:00 09/07/24 10:55 DC 09/07/24 10:21 10 MG Glucagon (Glucagon 1mg Kit) 1 mg AD PRN IM HYPOGLYCEMIA PROTOCOL 09/07/24 11:00 10/07/24 10:59 Hydralazine HCl (APRESOLine 20MG INJ) 5 mg Q6H PRN IV ADMINISTER FOR SBP > 160 09/07/24 11:00 10/07/24 10:59 09/07/24 18:03 5 MG Insulin Human Regular (humuLIN R 100 UNIT/ML 3ML) INSULIN SLIDING SCAL... ACHS SQ 09/07/24 11:30 10/07/24 11:29 Magnesium Sulfate 50 ml @ 0 mls/hr PROTOCOL PRN IV MAGNESIUM PROTOCOL 09/07/24 11:00 10/07/24 10:59 09/09/24 04:53 25 MLS/HR Nifedipine (adALAT 30MG) 90 mg DAILY PO 09/08/24 09:00 10/08/24 08:59 09/08/24 10:09 90 MG Ondansetron HCl (zoFRAN 4MG INJ) 4 mg Q6H PRN IV NAUSEA/VOMITING 09/07/24 05:00 10/07/24 04:59 Ondansetron HCl (zoFRAN 4MG INJ) 4 mg Q6H PRN IVP NAUSEA/VOMITING 09/07/24 11:00 09/07/24 11:02 DC Pantoprazole Sodium (PROTonix 40MG INJ) 40 mg BID IVP 09/08/24 21:00 10/08/24 20:59 09/08/24 20:10 40 MG Pantoprazole Sodium 80 mg/ Sodium Chloride 100 ml @ 10 mls/hr Q10H IVP 09/07/24 11:00 09/08/24 09:22 DC 09/08/24 05:59 10 MLS/HR Potassium Chloride 100 ml @ 100 mls/hr AD PRN IV POTASSIUM PROTOCOL 09/07/24 11:00 10/07/24 10:59 Sodium Chloride 1,000 ml @ 75 mls/hr [id number] IV 09/07/24 10:30 10/07/24 10:29 09/08/24 13:14 75 MLS/HR Vitamin B Complex/ Vit C/Folic Acid (Nephrovite Tablet) 1 cap DAILY PO 09/09/24 09:00 10/09/24 08:59 Diagnostics / Radiology: [COPY/PASTE HERE IF NO REPORTS PLEASE DELETE SECTION] Assessment: Melena Acute blood loss anemia UTI HTN Plan: EGD offered; however, daughter defers Continue GI prophylaxis Advance diet as tolerated Avoid NSAIDs Antireflux measures Monitor H&H and transfuse as needed Call with questions, concerns or change in clinical status Patient to follow-up at clinic post discharge Thank you for this consult MAR WOODWARD DIRECTOR OF [employer]POR[employer] SALES Sep 09, 2024 08:56
--- NOTE | 2024-09-09 10:49 | PN ---
NEPHROLOGY PROGRESS NOTE Date/Time Patient Seen: Sep 09, 2024 SUBJECTIVE: This is an 83-year-old female with a past medical history of hypertension, hyperlipidemia, chronic kidney disease, diabetes mellitus type 2, recurrent anemia, levothyroxine, and left adrenal mass She has a history of hospitalization in April 2024 for left adrenal mass and possible myeloma. She was followed by Dr. López. She presented to the emergency room for further evaluation of fever, generalized weakness, chills, and fatigue. She was noted with severe anemia, worsening renal function We are consulted for renal failure. Renal function is improving Electrolytes are stable Renal ultrasound showed no hydronephrosis. Bladder moderately distended. UA was positive for proteinuria. Blood cultures has been negative Urine cultures positive for E coli, continues on antibiotics as per ID GI was consulted and recommended EGD, however daughter defer EGD. Pending Hematology/Oncology consult She was seen in the emergency room, in no acute distress Family at the bedside Prognosis remains guarded REVIEW OF SYSTEMS: GENERAL: Positive for fever, generalized body weakness, fever and chills NEUROLOGIC: Negative for any blurry vision, blind spots, double vision, facial asymmetry, dysphagia, dysarthria, hemiparesis, hemisensory deficits, vertigo, ataxia. HEENT: Negative for any head trauma, neck trauma, neck stiffness, photophobia, phonophobia, sinusitis, rhinitis. CARDIAC: Negative for any chest pain, dyspnea on exertion, paroxysmal nocturnal dyspnea, peripheral edema. PULMONARY: Negative for any shortness of breath, wheezing, COPD, or TB exposure. GASTROINTESTINAL: Negative for any abdominal pain, nausea, vomiting, bright red blood per rectum, melena. GENITOURINARY: Negative for any dysuria, hematuria, incontinence. INTEGUMENTARY: Negative for any rashes, cuts, insect bites. RHEUMATOLOGIC: Negative for any joint pains, photosensitive rashes, history of vasculitis or kidney problems. HEMATOLOGIC: Negative for any abnormal bruising, frequent infections or bleeding. PHYSICAL EXAM: GENERAL: Alert and oriented x 3. No acute distress. Well-nourished. EYES: EOMI. Anicteric. HENT: Moist mucous membranes. No scleral icterus. No cervical lymphadenopathy. LUNGS: Clear to auscultation bilaterally. No accessory muscle use. CARDIOVASCULAR: Regular rate and rhythm. No murmur. No JVD. ABDOMEN: Soft, non-tender and non-distended. No palpable masses. EXTREMITIES: No edema. Non-tender. SKIN: No rashes or lesions. Warm. NEUROLOGIC: No focal neurological deficits. CN II-XII grossly intact, but not individually tested. PSYCHIATRIC: Cooperative. Appropriate mood and affect. LABORATORY: [ ] Hematology Labs: Test 09/09/24 03:32 09/08/24 06:06 Range/Units White Blood Count 4.5 L 4.8-10.8 K/uL Red Blood Count 2.52 L 4.00-5.50 MIL/uL Hemoglobin 7.3 L 12.0-16.0 g/dL Hematocrit 22.8 L 36-48 % Mean Corpuscular Volume 90.5 79-99 fL Mean Corpuscular Hemoglobin 29.0 27.0-33.0 pg Mean Corpuscular Hemoglobin Concent 32.0 32.0-36.0 g/dL Red Cell Distribution Width 18.1 H 11.0-15.5 % Platelet Count 106 L 130-400 K/uL Mean Platelet Volume 9.6 7.5-10.5 fL Nucleated Red Blood Cells 2.0 H 0.0-0.19 % Immature Granulocyte % (Auto) 3.0 H 0-1 % Neutrophils (%) (Auto) 63.0 40.0-77.0 % Lymphocytes (%) (Auto) 19.8 L 21.0-51.0 % Monocytes (%) (Auto) 12.1 3.0-13.0 % Eosinophils (%) (Auto) 1.3 0.0-8.0 % Basophils (%) (Auto) 0.8 0.0-5.0 % Neutrophils # (Auto) 3.8 1.8-7.7 K/uL Lymphocytes # (Auto) 1.2 1.0-4.8 K/uL Monocytes # (Auto) 0.7 0.1-1.0 K/uL Eosinophils # (Auto) 0.08 0.00-0.70 K/uL Basophils # (Auto) 0.05 0.00-0.20 K/uL Absolute Immature Granulocyte (auto 0.18 0-1 K/uL Red Blood Cell Morphology See comments Chemistry Labs: Test 09/09/24 05:32 09/09/24 03:32 09/08/24 06:06 Range/Units Whole Blood Glucose 111 H 70-110 MG/DL Sodium Level 142 136-145 mmol/L Potassium Level 3.9 3.5-5.1 mmol/L Chloride Level 110 101-111 mmol/L Carbon Dioxide Level 21 21-32 mmol/L Blood Urea Nitrogen 26 H 7-18 mg/dL Creatinine 1.9 H 0.5-1.0 mg/dL Glomerular Filtration Rate Calc 26 >90 mL/min Random Glucose 98 70-105 mg/dL Total Calcium 8.8 8.5-10.1 mg/dL Phosphorus Level 3.3 2.5-4.9 mg/dL Magnesium Level 1.90 1.80-2.40 mg/dL Iron Level 40 #L 50-170 mcg/dL Total Iron Binding Capacity 119 L 250-450 mcg/dL Percent Iron Saturation 33.6 22-44 % Ferritin 455 H 15-150 ng/mL Total Bilirubin 0.2 0.2-1.0 mg/dL Aspartate Amino Transf (AST/SGOT) 15 10-37 U/L Alanine Aminotransferase (ALT/SGPT) 10 L 12-78 U/L Alkaline Phosphatase 54 50-136 U/L Total Protein 10.5 H 6.0-8.3 g/dL Albumin 1.6 L 3.5-5.0 g/dL DIAGNOSTICS / RADIOLOGY: REASON: CKD ORDERING PHYSICIAN: PETE CONNOR PROCEDURE: RENAL - US RENAL SONOGRAM US RENAL SONOGRAM HISTORY: Chronic renal disease COMPARISON: None TECHNIQUE: Renal and bladder ultrasound study was performed. FINDINGS: The right kidney measures 9.1 x 4.8 x 5.2 cm. The left kidney measures 8.3 x 4.6 x 3.5 cm. No evidence of hydronephrosis is seen of either kidney. Both kidneys are echogenic consistent medical renal disease. Bladder is moderately distended. Bladder wall measures 4 mm. IMPRESSION: 1. No hydronephrosis is seen. DICTATED BY: AZALIA BONILLA MD DATE: 09/07/241317 REASON: periumbilical pain ORDERING PHYSICIAN: LEONIDAS AJ PROCEDURE: ABD PEL WO - CT ABDOMEN/PELVIS W/O CONTRAST CT ABDOMEN/PELVIS W/O CONTRAST HISTORY: Periumbilical pain COMPARISON: 07/05/2024 TECHNIQUE: Multiple sequential axial images of the abdomen and pelvis were obtained from the dome of the diaphragm through symphysis pubis. Patient was not given contrast through intravenous route. Oral contrast was not given. FINDINGS: No pleural effusion is seen bilaterally. There is no evidence of parenchymal disease or pulmonary nodule of the visualized lower lungs. Degenerative changes of the thoracolumbar spine are present. The heart is not enlarged. Then liver measured 15 cm. There is left renal atrophy. There is mild diverticulosis. Tiny periumbilical hernia is seen with fat content. The liver, spleen, adrenal glands and pancreas are unremarkable. There is no evidence of hydronephrosis bilaterally. No evidence of renal stone is seen. Fecal material is seen in the colon. There are normal size retroperitoneal and mesenteric lymph nodes. No ascites is seen. Atherosclerotic changes are present. Uterus is prominent for patient's age may be related to fibroid uterus. Pelvic sidewalls are symmetric bilaterally. Bladder is well distended without wall thickening. IMPRESSION: 1. Tiny periumbilical hernia is seen with fat content. Mild diverticulosis. Fecal material in the colon. CT was performed with one or more following dose reduction techniques: automated exposure control, adjustment of the mA and kv according to patient's size, or use of a iterative reconstruction technique. DICTATED BY: AZALIA BONILLA MD DATE: 09/06/24 2331 REASON: fever ORDERING PHYSICIAN: LEONIDAS AJ REPAIR SERVICE DISPATCHER PROCEDURE: CXR1VW - CHEST 1VW CHEST 1VW HISTORY: Fever COMPARISON: 05/02/2024 FINDINGS: A frontal projection of the chest was obtained. No acute pulmonary infiltrates is seen. The heart is normal in size. Prominent interstitial markings are seen. Degenerative changes are seen. IMPRESSION: 1. No acute pulmonary infiltrate is seen. DICTATED BY: AZALIA BONILLA MD DATE: 09/07/24 5038 ASSESSMENT: Acute on chronic renal failure Sepsis Urinary tract infection Hypertensive urgency Hyponatremia Hypochloremia Hyperglycemia Blood loss anemia Diabetes mellitus type II Hypothyroidism Hyperlipidemia PLAN: Labs, diagnostic, radiologic exams reviewed and interpreted by myself and supervising physician. We have reviewed external records in detail There is no need for emergent renal replacement therapy at this time. Pending further Hematology/Oncology recommendations. Require close monitoring of renal function and electrolytes Order CBC, CMP, and electrolytes in am Continue with antibiotics Renal diabetic diet BiPAP as necessary, for respiratory distress Monitor blood pressure adjust medication doses as needed Avoid hypotensive episodes May use Dilaudid 0.5 mg IV every 6 hours as needed for severe pain Monitor blood sugars Strict intake, output, and daily weight should be monitored Please renally adjust medications Avoid nephrotoxic and nonsteroidal drugs Avoid contrast if possible Will continue to monitor renal function, anemia, electrolytes Treatment plan discussed with patient Questions were answered We have discussed with the other team physicians in detail about the care plan We will continue to monitor the patient closely Thank you for allowing us to participate in the care of this patient ATTESTATION BY PHYSICIAN I have seen and examined the patient. I reviewed the documentation, medical decision making, and treatment plan as noted by the mid-level provider above. I agree with the findings and plan of care. KEON CARDENAS MD, ELIZABETH FNP Sep 09, 2024 10:48
--- NOTE | 2024-09-09 11:37 | DS ---
Discharge Summary Hospital Course Summary: This is an 83-year-old female with past medical history of hypertension and diabetes mellitus who presented to the emergency department with subjective fever of 103 F associated with weakness, chill, and fatigue. Patient also complained of dysuria that started on Friday09/03/2024. Patient's daughter at bedside who decided to take the patient to the emergency department for further evaluation. In the ED, VS reviewed: 101.1 Degree F, pulse 93, respiratory rate 20, blood pressure 204/76, 98% on room air. WBCs 7.2, HGB 7.2, HCT 22.6, PLT 148, Na 129, Cl 97, BUN , creatinine 2.3, random glucose 112, total protein 12.8, albumin 2.1. Urinalysis remarkable for leuko esterase 250 with initial urine culture showing 101700 CFU. Patient was started with IV antibiotics. This morning, we repeated her labs her H&H dropped to 6.2/19.6 respectively. Patient will be type and cross and we will transfuse patient with1 unit of PRBC. Patient was evaluated in ED two with her daughter at bedside. Patient was receiving IV Antbx- for complicated UTI with positive Ecoli. Negative blood cultures. Patient was followed by authorization coordinator due to her history of stage 4 kidney disease. GI due to blood loss anemia, 1 unit of PRBC given. 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 Patient follows Dr. López in the outpatient setting and we will be following up with him with the patient is discharged. Patient has been working with physical therapy and doing better. Patient was evaluated by Dr. Richards who recommended patient to be discharged with Vantin 20 mg daily p.o. b.i.d. x7 days. Patient is stable and hemodynamically doing better. She can be discharged home and resume all her medications. Follow up with PCP in 2-3 days. Follow up with GI team in one week, follow up with management associate in one week. 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 Richards Procedure(s): [place] [address] [place] [id number] IMAGING REPORT Signed PATIENT: RICHIE JAMES MR#: [id number] : 1940 SEX: F AGE: 83 [facility]1 STATUS: ADM IN REPORT#: [id number] SERVICE 1010 REASON: CKD ORDERING PHYSICIAN: PETE CONNOR PROCEDURE: RENAL - US RENAL SONOGRAM US RENAL SONOGRAM HISTORY: Chronic renal disease COMPARISON: None TECHNIQUE: Renal and bladder ultrasound study was performed. FINDINGS: The right kidney measures 9.1 x 4.8 x 5.2 cm. The left kidney measures 8.3 x 4.6 x 3.5 cm. No evidence of hydronephrosis is seen of either kidney. Both kidneys are echogenic consistent medical renal disease. Bladder is moderately distended. Bladder wall measures 4 mm. IMPRESSION: 1. No hydronephrosis is seen. DICTATED BY: AZALIA BONILLA MD DATE: 09/07/24 1318 ELECTRONICALLY SIGNED BY: AZALIA BONILLA MD DATE: 09/07/24 [address] [place] [address] IMAGING REPORT Signed PATIENT: RICHIE JAMES MR#: [id number] : 1940 SEX: F AGE: 83 LOCATION: ED ORDER 51 STATUS: REG ER REPORT#: [id number] SERVICE 225 REASON: periumbilical pain ORDERING PHYSICIAN: LEONIDAS AJ ACCOUNTANT PROPERTY PROCEDURE: ABD PEL WO - CT ABDOMEN/PELVIS W/O CONTRAST CT ABDOMEN/PELVIS W/O CONTRAST HISTORY: Periumbilical pain COMPARISON: 07/05/2024 TECHNIQUE: Multiple sequential axial images of the abdomen and pelvis were obtained from the dome of the diaphragm through symphysis pubis. Patient was not given contrast through intravenous route. Oral contrast was not given. FINDINGS: No pleural effusion is seen bilaterally. There is no evidence of parenchymal disease or pulmonary nodule of the visualized lower lungs. Degenerative changes of the thoracolumbar spine are present. The heart is not enlarged. Then liver measured 15 cm. There is left renal atrophy. There is mild diverticulosis. Tiny periumbilical hernia is seen with fat content. The liver, spleen, adrenal glands and pancreas are unremarkable. There is no evidence of hydronephrosis bilaterally. No evidence of renal stone is seen. Fecal material is seen in the colon. There are normal size retroperitoneal and mesenteric lymph nodes. No ascites is seen. Atherosclerotic changes are present. Uterus is prominent for patient's age may be related to fibroid uterus. Pelvic sidewalls are symmetric bilaterally. Bladder is well distended without wall thickening. IMPRESSION: 1. Tiny periumbilical hernia is seen with fat content. Mild diverticulosis. Fecal material in the colon. CT was performed with one or more following dose reduction techniques: automated exposure control, adjustment of the mA and kv according to patient's size, or use of a iterative reconstruction technique. DICTATED BY: AZALIA BONILLA MD DATE: 09/06/242330 ELECTRONICALLY SIGNED BY: AZALIA BONILLA MD DATE: 09/06/2423[address] [place] [address] IMAGING REPORT Signed PATIENT: RICHIE JAMES MR#: [id number] : 1940 SEX: F AGE: 83 LOCATION: [facility] ORDER 00 STATUS: ADM IN REPORT#: [id number] SERVICE 56 REASON: fever ORDERING PHYSICIAN: LEONIDAS AJ PROCEDURE: CXR1VW - CHEST 1VW CHEST 1VW HISTORY: Fever COMPARISON: 05/02/2024 FINDINGS: A frontal projection of the chest was obtained. No acute pulmonary infiltrates is seen. The heart is normal in size. Prominent interstitial markings are seen. Degenerative changes are seen. IMPRESSION: 1. No acute pulmonary infiltrate is seen. DICTATED BY: AZALIA BONILLA MD DATE: 09/07/24 0854 ELECTRONICALLY SIGNED BY: AZALIA BONILLA MD DATE: 09/07/24 0888 Assessment/Plan: Discharge diagnoses [Sepsis, POA Complicated Urinary tract infection, POA positive for E coli Hypertensive urgency, POA, slowly improving Hyponatremia, POA, improved Hypochloremia, POA Hyperglycemia, POA Blood loss anemia, POA received 1 units of PRBC Diabetes mellitus to CKD stage IV ] Admitting diagnoses Sepsis, POA Urinary tract infection, POA Hypertensive urgency, POA Hyponatremia, POA Hypochloremia, POA Hyperglycemia, POA Blood loss anemia, POA Diabetes mellitus CKD stage IV Discharge Instructions: Patient will be discharged home with instructions to follow up with PCP in 2-3 days Follow up with diving coach in 1-2 weeks Follow up with Infectious Disease in 1-2 weeks Home Medications: Active Scripts Nifedipine (Nifedipine ER) 30 Mg Tab.er.24, 90 MG PO DAILY, #60 TAB Prov:KIMMY BREAUX RETROFIT INSTALLER 12/02/23 Reported Medications [Vitamin B12] No Conflict Check, 1000 MCG PO DAILY 09/08/24 Ferrous Sulfate (Iron) 325 Mg (65 Mg Iron) Tablet, 1 TAB PO DAILY for 30 Days, #60 TAB 0 Refills 09/08/24 Discontinued Reported Medications Sodium Bicarbonate (Sodium Bicarbonate) 650 Mg Tablet, 1 TAB PO BID for indigestion for 30 Days, #60 TAB 0 Refills 05/02/24 Discontinued Scripts Lidocaine (Lidocaine Pain Relief) 4 % Adh..patch, 1 EACH TP BID PRN for PAIN for 10 Days, #10 ADH.PATCH Prov:GIBRAN JAVIER DO 07/05/24 Meloxicam (Meloxicam) 15 Mg Tablet, 15 MG PO DAILY PRN for PAIN for 10 Days, #10 TAB Prov:GIBRAN JAVIER DO 07/05/24 Continued Medications: Ferrous Sulfate (Iron) 325 Mg (65 Mg Iron) Tablet 1 TAB PO DAILY for 30 Days, #60 TAB 0 Refills Nifedipine (Nifedipine ER) 30 Mg Tab.er.24 90 MG PO DAILY, #60 TAB [Vitamin B12] () 1000 MCG PO DAILY Time spent arranging discharge: 31-60 minutes ATTESTATION BY PHYSICIAN I have seen and examined the patient. I reviewed the documentation, medical decision making, and treatment plan as noted by the mid-level provider above. I agree with the findings and plan of care. KARIME GARCIA MD, JANICE B AGPCRAAD Sep 09, 2024 11:37
[2024-09-09 11:51] VITALS: BP 161/71; PULSE 72; RESP 17; TEMP 98
[2024-09-09 11:54] VITALS: O2SAT 98
--- NOTE | 2024-09-09 12:59 | PN ---
INFECTIOUS DISEASE PROGRESS NOTE Date of Service: Sep 09, 2024 SUBJECTIVE: Patient was seen and examined at bedside in room 223. Patient is afebrile, temperature is 98.8. The final urine culture results came back positive for E coli. No growth reported on the blood cultures. Patient was transfused 1 unit of PRBC on 09/07/2024 for hemoglobin of 6.2. Hemoglobin remains low this morning at 7.3. Per report patient was offer an EGD but declined at this time due to she recently had one done. From Infectious Disease standpoint patient can be discharged to home on Vantin x7 days when ready to discharge. Prescription was written. PHYSICAL EXAM EYES: Anicteric. Pupils equal and reactive. HENT: No oral thrush seen, moist Oral mucosa NECK: Supple, no JVD or thyromegaly. LUNGS: Good air entry. No rales, no rhonchi. CARDIOVASCULAR: S1, S2 regular. No murmur heard. ABDOMEN: Soft, non tender, bowel sounds present, no organomegaly CENTRAL NERVOUS SYSTEM: Awake, alert, oriented x 3. No focal deficits. SKIN: No rashes, no swelling. LYMPHATICS: No peripheral lymphadenopathy MUSCULOSKELETAL: No joint swelling, erythema or tenderness. EXTREMITIES: No cyanosis or clubbing BACK: No deformity, no pressure ulcer. GENITOURINARY: No dysuria or hematuria Vital Sign (Last 12 Hours) 09/09/24 09/09/24 09/09/24 09/09/24 04:00 08:00 11:51 11:54 Temp 98.1 98.8 98.1 Pulse 73 69 72 Resp 18 17 17 B/P (MAP) 153/67 150/69 161/71 Pulse Ox 99 97 95 98 O2 Delivery Room Air Room Air Room Air Room Air* O2 Flow Rate 0 FiO2 21 Intake & Output (last 24hrs) 09/08/24 09/08/24 09/09/24 15:00 23:00 07:00 Intake Total 425.0 ml Balance 425.0 ml LABS: Laboratory: Test 09/09/24 11:22 09/09/24 03:32 09/08/24 10:39 09/08/24 06:06 Range/Units Whole Blood Glucose 147 H 70-110 MG/DL White Blood Count 4.5 L 4.8-10.8 K/uL Red Blood Count 2.52 L 4.00-5.50 MIL/uL Hemoglobin 7.3 L 12.0-16.0 g/dL Hematocrit 22.8 L 36-48 % Mean Corpuscular Volume 90.5 79-99 fL Mean Corpuscular Hemoglobin 29.0 27.0-33.0 pg Mean Corpuscular Hemoglobin Concent 32.0 32.0-36.0 g/dL Red Cell Distribution Width 18.1 H 11.0-15.5 % Platelet Count 106 L 130-400 K/uL Mean Platelet Volume 9.6 7.5-10.5 fL Nucleated Red Blood Cells 2.0 H 0.0-0.19 % Sodium Level 142 136-145 mmol/L Potassium Level 3.9 3.5-5.1 mmol/L Chloride Level 110 101-111 mmol/L Carbon Dioxide Level 21 21-32 mmol/L Blood Urea Nitrogen 26 H 7-18 mg/dL Creatinine 1.9 H 0.5-1.0 mg/dL Glomerular Filtration Rate Calc 26 >90 mL/min Random Glucose 98 70-105 mg/dL Total Calcium 8.8 8.5-10.1 mg/dL Phosphorus Level 3.3 2.5-4.9 mg/dL Magnesium Level 1.90 1.80-2.40 mg/dL Iron Level 40 #L 50-170 mcg/dL Total Iron Binding Capacity 119 L 250-450 mcg/dL Percent Iron Saturation 33.6 22-44 % Ferritin 455 H 15-150 ng/mL Blood Gas Specimen Type Venous Arterial Blood Oxygen Saturation 54.4 L 94.0-98.0 % Venous Blood pH 7.370 7.320-7.430 Venous Blood pCO2 at Patient Temp 31 L 38-54 Venous Blood pO2 at Patient Temp 32.2 23.0-48.0 mmHg Venous Blood HCO3 17.3 L 22.0-29.0 Venous Blood Base Excess -7.0 L -2.0-3.0 Venous Blood Total Hemoglobin 9.6 L 12.0-16.0 Sodium (Blood Gas) 141 136-145 MMOL/L Bedside Potassium (Blood Gas) 4.1 3.4-4.5 MMOL/L Bedside Chloride (Blood Gas) 109 H 98-107 MMOL/L Bedside Glucose (Blood Gas) 183 H 65-95 MG/DL Bedside Ionized Calcium (Blood Gas) 1.31 1.15-1.33 MMOL/L Bedside Lactic Acid (Blood Gas) 1.75 H 0.36-0.75 MMOL/L Blood Gas Temperature 37.0 35.5-37.0 CELSIUS Blood Gas Vent Mode VBG ROOM AIR FiO2 21.0 % Blood Gas Specimen Comment VBGMINNIE Immature Granulocyte % (Auto) 3.0 H 0-1 % Neutrophils (%) (Auto) 63.0 40.0-77.0 % Lymphocytes (%) (Auto) 19.8 L 21.0-51.0 % Monocytes (%) (Auto) 12.1 3.0-13.0 % Eosinophils (%) (Auto) 1.3 0.0-8.0 % Basophils (%) (Auto) 0.8 0.0-5.0 % Neutrophils # (Auto) 3.8 1.8-7.7 K/uL Lymphocytes # (Auto) 1.2 1.0-4.8 K/uL Monocytes # (Auto) 0.7 0.1-1.0 K/uL Eosinophils # (Auto) 0.08 0.00-0.70 K/uL Basophils # (Auto) 0.05 0.00-0.20 K/uL Absolute Immature Granulocyte (auto 0.18 0-1 K/uL Red Blood Cell Morphology See comments Total Bilirubin 0.2 0.2-1.0 mg/dL Aspartate Amino Transf (AST/SGOT) 15 10-37 U/L Alanine Aminotransferase (ALT/SGPT) 10 L 12-78 U/L Alkaline Phosphatase 54 50-136 U/L Total Protein 10.5 H 6.0-8.3 g/dL Albumin 1.6 L 3.5-5.0 g/dL Test 09/07/24 15:00 Range/Units Stool Occult Blood NEGATIVE NEGATIVE DIAGNOSTICS / RADIOLOGY: PATIENT: RIHCIE JAMES ACCT: [id number] LOC: [facility] U: [id number] AGE/SX: 83/F ROOM: ED RE09/06/[address]: KARIME GARCIA MD : 1940 BED: 02 DIS: STATUS: ADM IN TLOC: SPEC: [id number] ALINE: 09/06/24 STATUS: ASHANTI REQ: [id number] RECD: 09/07/[address]: LEONIDAS AJ S[place] [facility] [place] 09/07/[address] [facility] [address]: NICK HILLIARD MD SPDESC: CLEAN CAT MINOR,SANDOVAL Linda MD ORDERED: AERO ID & SENS Procedure Result Ernestina Date-Time AEROBIC ID & SENSITIVITIES Final 09/08/24-630 MRL COLONY DESCRIPTION: DAY 1: COLONY COUNT: >100,000 CFU/ML GRAM NEGATIVE RODS IDENTIFICATION AND SENSITIVITY TO FOLLOW ESCHERICHIA COLI E COLI M.I.C. RX --------- ---- AMPICILLIN >16 R AZTREONAM <=4 S CEFAZOLIN 4 I CEFTAZIDIME/AVIBACTAM <=8 S CEFTRIAXONE <=1 S GENTAMICIN >8 R LEVOFLOXACIN <=0.5 S NITROFURANTOIN <=32 S TOBRAMYCIN 4 I MEROPENEM <=1 S PIPERACILLIN/TAZOBACTAM <=8 S TRIMETHOPRIM/SUFLAMETHOXAZOLE >2/38 R ASSESSMENT: Urinary tract infection with E coli. Possible GI bleed, patient declined EGD. Anemia requiring blood transfusion. Acute renal failure. Dehydration. PLAN: From Infectious Disease standpoint patient can be discharged to home on Vantin x 7 days when ready to discharge. Prescription was written. Follow up with Dr. Valles in one week Follow up with Dr. Richards in two weeks. This case was reviewed and discussed with my supervising physician and the above assessment and plan was formulated and agreed upon. ATTESTATION BY PHYSICIAN I have seen and examined the patient. I reviewed the documentation, medical decision making, and treatment plan as noted by the mid-level provider above. I agree with the findings and plan of care. BALJIT RICHARDS MD, MIRTA L [facility] Sep 09, 2024 12:59
== END 2024-09-09 13:30 | disposition home or self-care (01) | DRG 872 ==
LOC: EDH 21:15 → EDHIP 21:16 → 2DH 09-08 21:05
PROVIDERS: ADMIT Internal Medicine; ATTEND Internal Medicine
PROC: 30233N1 Transfusion of Nonautologous Red Blood Cells into Peripheral Vein, Percutaneous Approach (ICD-10-PCS; principal; 2024-09-07)
DX: A41.51 Sepsis due to Escherichia coli [E. coli] (principal); D62 Acute posthemorrhagic anemia; N18.4 Chronic kidney disease, stage 4 (severe); N39.0 Urinary tract infection, site not specified; E87.1 Hypo-osmolality and hyponatremia; N17.9 Acute kidney failure, unspecified; K92.1 Melena; I12.9 Hypertensive chronic kidney disease with stage 1 through stage 4 chronic kidney disease, or unspecified chronic kidney disease; E27.9 Disorder of adrenal gland, unspecified; E11.22 Type 2 diabetes mellitus with diabetic chronic kidney disease; E86.0 Dehydration; E11.65 Type 2 diabetes mellitus with hyperglycemia; R53.81 Other malaise; E03.9 Hypothyroidism, unspecified; E78.5 Hyperlipidemia, unspecified; E87.8 Other disorders of electrolyte and fluid balance, not elsewhere classified; I16.0 Hypertensive urgency; K57.30 Diverticulosis of large intestine without perforation or abscess without bleeding; Z82.49 Family history of ischemic heart disease and other diseases of the circulatory system; Z83.3 Family history of diabetes mellitus
CPT/HCPCS: 36415; 36600; 71045; 74176; 76770; 80048; 80053; 80076; 81001; 82270; 82435; 82550; 82728; 82803; 82947; 82948; 83540; 83550; 83605; 83690; 83735; 84100; 84132; 84295; 84484; 85025; 85027; 86850; 86900; 86901; 86922; 87040; 87086; 87186; 93005; G0378; J0360; J0696; J2470; J3475; J7030; P9016